=== PATIENT | female | born 1985 | race Caucasian/White ===

== ENCOUNTER 2019-11-21 14:29 | Emergency (ER) | payer OTHER, SELFPAY ==
--- NOTE | ~2019-11-21 | XR_ITS ---
XR knee LT min 4V DATE: 11/21/2019 15:05 INDICATION: Left knee pain for 2 weeks TECHNIQUE: 5 views including crosstable lateral COMPARISON: None FINDINGS: No fracture or dislocation or joint effusion. No periosteal reaction or bone destruction. N o radiopaque intra-articular loose body or chondrocalcinosis. Joint spaces are well preserved. IMPRESSION: Negative Reviewed, dictated and finalized at location A. IMPRESSION: Negative
--- NOTE | 2019-11-21 14:33 | ED.GENADULT ---
HPI - General Adult General Chief complaint: Skin/Abscess/Foreign Body Stated complaint: left knee and rash Time Seen by Provider: 11/21/19 14:34 Source: patient Mode of arrival: ambulatory Limitations: no limitations History of Present Illness HPI narrative: 34-year-old female patient presents to the [facility] with complaints of left knee pain and a rash. Patient states her left knee has been locking up on her for the past couple of weeks. Patient states it is painful when she is bending the knee. Patient denies any injury to the knee that she is aware of. Patient states she does take pain medicine for chronic back pain which has helped the knee pain but states that she has not had any specific injury to it and does not really know what is causing the pain. Patient still able to walk with a steady gait. Patient states she has also had a rash to the right side of the neck, the redness of the elbows on bilateral side as well as starting to have another rash to the left abdomen. Patient states that her does work outside and she has been laying on him recently and thinks that he might have come into contact with some poison sumac. Patient states she has had poison sumac before and gets it quite easily. Patient states she has been using [id number] topical hydrocortisone cream and taking antihistamines to help with the itching. Related Data Home Medications Medication Instructions Recorded Confirmed albuterol sulfate 2 puff INHALATION QID PRN 11/21/19 11/21/19 hydrocodone-acetaminophen 1 tablet PO Q8H PRN 11/21/19 11/21/19 Allergies Allergy/AdvReac Type Severity Reaction Status Date / Time AMOXICILLIN TRIHYDRATE AdvReac Intermediate Nausea and Uncoded 11/21/19 14:42 Vomiting POTASSIUM CLAVULANATE AdvReac Intermediate Nausea and Uncoded 11/21/19 14:42 Vomiting Review of Systems Review of Systems: Narrative: CONSTITUTIONAL: Denies fever, chills, or sweats. EYES: Denies visual changes, redness, or discharge. ENT: Denies rhinorrhea, congestion, sore throat, or otalgia. CARDIOVASCULAR: Denies chest pain, palpitations, or edema. RESPIRATORY: Denies cough or dyspnea. GASTROINTESTINAL: Denies abdominal pain, nausea, vomiting, or diarrhea. GENITOURINARY: Denies dysuria or hematuria. SKIN: Positive rash with itching. MUSCULOSKELETAL: Denies back pain, joint pain, or myalgia. Positive left knee pain NEUROLOGIC: Denies headache, numbness, or weakness. PSYCHIATRIC: Denies anxiety or depression. PMFSH Family History Family History Mother Family history of diabetes mellitus in first degree relative Father Family history of malignant neoplasm of urinary bladder Family history of heart disease in male family member before age 55 Social History Social History Smoking status: Never smoker Alcohol intake: never Comments At the time of my signature I agree with nursing past medical history, surgical, social, and family history. There is no relevant family history pertinent to the presenting complaint. Exam Narrative: Exam Narrative: GENERAL: Well-appearing, well-nourished, and in no acute distress. HEAD: Normocephalic, atraumatic. EYES: PERRLA and EOMI. ENT: Nares clear, no rhinorrhea or epistaxis. Mucous membranes moist. NECK: Supple. No lymphadenopathy CHEST: Clear to auscultation. No respiratory distress. HEART: Regular rate and rhythm. No murmur heard. Normal peripheral pulses. ABDOMEN: Soft, nontender, nondistended, normal active bowel sounds. EXTREMITIES: Patient is able to bear weight and ambulate but has increased pain to the left knee. No surface trauma, STS, or obvious effusion. No overlying erythema or warmth. The L knee is without obvious asymmetry or deformity when compared to the R knee. Patient is able to do deep knee bend with symmetry but has crepitus and pain when doing so, patien
[2019-11-21 14:34] VITALS: BP 119/77; PULSE 81; RESP 20; TEMP 36.9; O2SAT 100
== END 2019-11-21 15:34 | disposition home or self-care (01) ==
PROVIDERS: Emergency Provider Nurse Practitioner Family; PCP Internal Medicine
DX: L25.5 Unspecified contact dermatitis due to plants, except food (principal); M17.12 Unilateral primary osteoarthritis, left knee; J45.909 Unspecified asthma, uncomplicated
CPT/HCPCS: 73564; 99213; G0463

== ENCOUNTER 2021-01-26 09:18 | Observation (INO) | payer OTHER, SELFPAY ==
[2021-01-26] VITALS (8 sets, daily range): BP systolic 109–136; BP diastolic 64–89; PULSE 67–96; RESP 16–20; TEMP 36.3–37.1; O2SAT 98–100; BMI 24.0
--- NOTE | ~2021-01-26 | US_ITS ---
EXAMINATION: US right upper quadrant DATE: 01/26/2021 11:22 INDICATION: Epigastric pain, vomiting, chills TECHNIQUE: Multiple grayscale and Doppler ultrasound images of the abdomen were obtained. COMPARISON: None available FINDINGS: The head and body of the pancreas are normal. The pancreatic tail is obscured by bowel gas. The liver is normal with normal echogenicity and echotexture. No surface nodularity. Normal hepatope urvashi flow in the main portal vein. The gallbladder is normal with no abnormal wall thickening, pericho lecystic fluid or stones. The normal common bile duct measures 3 mm. Sonographic Duong sign is posit ynes. IMPRESSION: 1. Sonographic Duong sign without additional sonographic abnormality identified. Reviewed, dictated and finalized at location B. PERSON IMPRESSION: 1. Sonographic Duong sign without additional sonographic abnormality barbara vásquez
--- NOTE | 2021-01-26 10:32 | ED.NAVMDI ---
HPI - Nausea/Vomiting/Diarrhea General Chief complaint: Nausea/Vomiting/Diarrhea Stated complaint: VOMITTING Time Seen by Provider: 01/26/21 10:32 Source: patient Mode of arrival: ambulatory Limitations: no limitations History of Present Illness HPI Narrative: 35-year-old woman with a history of gallbladder disease comes in today complaining of epigastric pain, vomiting and dry heaves as well as some chills that started at 2:00 a.m. today. She states that she ate wings last night. She states that approximately 1 week ago she had gastroenteritis with and included nausea vomiting and diarrhea. Her symptoms completely resolved. she has had no blood in her vomitus, blood in her stools, diarrhea, dysuria, hematuria, fever , chest pressure or difficulty breathing. MD elicited complaint: nausea, vomiting and abdominal pain Onset (ago): hour(s) (8) Description of vomiting: food contents and watery Associated nausea: Yes Associated abdominal pain: Yes Location of pain: epigastric Radiation: does not radiate Pain consistency: constant and colicky Severity: moderate Quality: sharp Exacerbating factors: eating Relieving factors: vomiting ( but provides only temporary relief.) Context: marijuana use Associated symptoms: fever/chills and nausea/vomiting Related Data Home Medications Medication Instructions Recorded Confirmed albuterol sulfate 2 puff INHALATION QID PRN 11/21/19 01/26/21 hydrocodone-acetaminophen 1 tablet PO Q8H PRN 11/21/19 01/26/21 Allergies Allergy/AdvReac Type Severity Reaction Status Date / Time AMOXICILLIN TRIHYDRATE AdvReac Intermediate Nausea and Uncoded 01/26/21 10:21 Vomiting POTASSIUM CLAVULANATE AdvReac Intermediate Nausea and Uncoded 01/26/21 10:21 Vomiting Review of Systems Review of Systems: All systems reviewed & are unremarkable except as noted in HPI and below Constitutional: Constitutional: Reports chills and Denies fever(s) PMFSH Family History Family History Mother Family history of diabetes mellitus in first degree relative Father Family history of malignant neoplasm of urinary bladder Family history of heart disease in male family member before age 55 Social History Social History Smoking status: Never smoker Alcohol intake: never Substance use: current Substance use type: marijuana and opiates Spiritual care concerns: No Course Course Emergency Course: discussed findings with Dr. Oliva, surgeon at [facility], who recommended a HIDA scan to evaluate her gallbladder function however this is not available at our [facility] or [facility] [place] until Friday. Given the patient's pain and severe nausea, I will bring her in for observation, fluids and antibiotics and if she is improved she can go home tomorrow. If not we need to transfer for surgical consultation. Vital Signs Vital signs: Vital Signs Temperature 36.6 C 01/26/21 10:05 Pulse Rate 82 01/26/21 10:05 Respiratory Rate 20 01/26/21 10:05 Blood Pressure 134/87 01/26/21 10:05 Pulse Oximetry 100 01/26/21 10:05 Temperature 36.6 C 01/26/21 23:31 Pulse Rate 88 01/26/21 23:31 Respiratory Rate 18 01/26/21 23:31 Blood Pressure 109/73 01/26/21 23:31 Pulse Oximetry 98 01/26/21 23:31 MDM - Nausea/Vomiting/Diarrhea Lab Data Result diagrams: 01/26/21 11:13 01/26/21 11:13 Labs: Lab Results 01/26/21 01/26/21 01/26/21 Range/Units 10:32 11:13 11:13 WBC 18.7 H (4.8-10.8) K/mm3 RBC 4.67 (4.20-5.40) M/mm3 Hgb 13.8 (12.0-15.0) g/dL Hct 39.3 (35.0-49.0) % MCV 84.2 (78.0-102.0) fL MCH 29.6 (27.0-31.0) pg MCHC 35.1 (32.0-36.0) g/dL RDW 13.6 (11.6-14.4) % Plt Count 331 (150-420) K/mm3 MPV 9.9 (9.2-11.8) fl Immature Gran % (Auto) 0.6 H (0.0-0.0) % Neut % (Auto) 87.1 H (50.0-70.0)
[2021-01-26] MEDS: ONDANSETRON INJ 4 MG/2 ML VIAL IV PUSH ×3 (11:02→21:41)
[2021-01-26] MEDS: PANTOPRAZOLE SODIUM IV 40 MG VIAL IV PUSH (11:05)
[2021-01-26] MEDS: HYDROmorphone HCL INJ (*CRX) 2 MG/ML VIAL 1 MG IV PUSH ×4 (11:14→23:34)
[2021-01-26] MEDS: SODIUM CHLORIDE 0.9% IV 1,000 ML 999 ML IV CONT ×2 (11:15→13:20)
[2021-01-26 11:21] LABS: Basophils Absolute Auto 0.03 K/mm3 (0.00-0.10); Basophils Percent Auto 0.2 % (0.0-1.0); Hematocrit 39.3 % (35.0-49.0); Hemoglobin 13.8 g/dL (12.0-15.0); Immature Granulocyte Absolute 0.11 K/mm3 (0.00-0.00); Immature Granulocyte Percent A 0.6 % (0.0-0.0); Lymphocytes Absolute Auto 1.29 K/mm3 (1.10-4.50); Lymphocytes Percent Auto 6.9 % (18.0-42.0); Mean Corpuscular HGB Conc 35.1 g/dL (32.0-36.0); Mean Corpuscular Hemoglobin 29.6 pg (27.0-31.0); Mean Corpuscular Volume 84.2 fL (78.0-102.0); Mean Platelet Volume 9.9 fl (9.2-11.8); Monocytes Absolute Auto 0.98 K/mm3 (0.10-0.90); Monocytes Percent Auto 5.2 % (2.0-11.0); Neutrophils Absolute Auto 16.3 K/mm3 (1.7-7.2); Neutrophils Percent Auto 87.1 % (50.0-70.0); Platelet Count Result 331 K/mm3 (150-420); Red Blood Count 4.67 M/mm3 (4.20-5.40); Red Cell Distribution Width 13.6 % (11.6-14.4); White Blood Count 18.7 K/mm3 (4.8-10.8)
[2021-01-26 11:36] LABS: Alanine Aminotransferase 34 U/L (14-59); Albumin Level 3.8 g/dL (3.4-5.0); Alkaline Phosphatase 74 U/L (46-116); Anion Gap 16 mmol/L (8-16); Aspartate Amino Transferase 10 U/L (15-37); Bilirubin,Total 0.4 mg/dL (0.00-1.00); Blood Urea Nitrogen 20 mg/dL (7-18); Calcium 9.3 mg/dL (8.5-10.1); Carbon Dioxide 21 mmol/L (21-32); Chloride 102 mmol/L (98-108); Estimated CRCL calculation 86 ml/min; Estimated Glomerular Filt Rate > 60; Glucose 187 mg/dL (70-99); Lipase 59 U/L (73-393); Osmolality Calculated 295 mOsm/kg (285-295); Potassium 3.4 mmol/L (3.5-5.1); Sodium 139 mmol/L (136-145); Total Protein 7.7 g/dL (6.4-8.2)
[2021-01-26 11:39] LABS: Lactic Acid Reflex 2.2 mmol/L (0.4-2.0)
[2021-01-26 12:30] LABS: SARS-CoV-2 Ag Negative (Negative)
--- NOTE | 2021-01-26 12:50 | PC.NURSE ---
PT RESTING EYES CLOSED, LEFT UNDISTURBED. RESP EVEN AND UNLABORED.
[2021-01-26 13:21] LABS: Appearance Urine Clear (Clear); Bilirubin Urine Negative (Negative); Color Urine Yellow (Yellow); Glucose Urine UA Trace (Negative); Ketones Urine 1+ (Negative); Leukocyte Esterase Ur Negative LEU/UL (Negative); Nitrate Urine Negative (Negative); Protein Urine Trace (Negative); Urobilinogen Urine 0.2 mg/dL (0.2-1.0)
[2021-01-26 13:23] LABS: Add Urine Microscopic? YES; Blood Urine Trace-lysed (Negative)
[2021-01-26 13:30] LABS: Squamous Epithelial Cell Urine Moderate /hpf (Few); WBC Urine 0-3 /hpf (0-3)
[2021-01-26 13:31] LABS: Bacteria Urine 2+ /hpf
[2021-01-26 13:33] LABS: Mucus Urine Heavy /lpf
[2021-01-26 14:16] LABS: Reflex Lactic Acid Yes or No Add Lactic
[2021-01-26 15:15] LABS: Lactic Acid 1.1 mmol/L (0.4-2.0)
--- NOTE | 2021-01-26 18:00 | ECG_ITS ---
Measurements Intervals [place] Rate: 96 P: 67 ND: 200 QRS: 57 QRSD: 88 T: 44 QT: 339 QTc: 430 Interpretive Statements SINUS RHYTHM NONSPECIFIC T-WAVE ABNORMALITY- INFERIOR LEADS BASELINE ARTIFACT- I, II, III, AVR, AVL, AVF BORDERLINE ECG NO PREVIOUS ECG AVAILABLE FOR COMPARISON Electronically Signed On 01-30-2021 12:05:01 GEOGRAPHY DEPARTMENT CHAIR by Arsen Mcgowan D.O.
[2021-01-26] MEDS: DEXTROSE 5%/0.9% SOD CHL 1,000 ML 150 ML IV CONT (19:47)
--- NOTE | 2021-01-26 23:10 | PC.NURSE ---
Introduction to pt completed. Pt whiteboard updated. Pt is laying on her right side with the lights darkened. Call light within reach.
[2021-01-27] MEDS: HYDROmorphone HCL INJ (*CRX) 2 MG/ML VIAL 1 MG IV PUSH ×4 (03:01→20:33)
[2021-01-27] MEDS: DEXTROSE 5%/0.9% SOD CHL 1,000 ML 150 ML IV CONT ×3 (03:03→16:30)
[2021-01-27 05:22] LABS: Basophils Absolute Auto 0.02 K/mm3 (0.00-0.10); Basophils Percent Auto 0.2 % (0.0-1.0); Eosinophils Absolute Auto 0.03 K/mm3 (0.02-0.50); Eosinophils Percent Auto 0.2 % (1.0-6.0); Hemoglobin 11.1 g/dL (12.0-15.0); Immature Granulocyte Absolute 0.06 K/mm3 (0.00-0.00); Immature Granulocyte Percent A 0.5 % (0.0-0.0); Lymphocytes Absolute Auto 3.06 K/mm3 (1.10-4.50); Lymphocytes Percent Auto 23.6 % (18.0-42.0); Mean Corpuscular HGB Conc 32.6 g/dL (32.0-36.0); Mean Corpuscular Volume 88.8 fL (78.0-102.0); Mean Platelet Volume 10.1 fl (9.2-11.8); Monocytes Absolute Auto 1.27 K/mm3 (0.10-0.90); Monocytes Percent Auto 9.8 % (2.0-11.0); Neutrophils Absolute Auto 8.5 K/mm3 (1.7-7.2); Neutrophils Percent Auto 65.7 % (50.0-70.0); Platelet Count Result 243 K/mm3 (150-420); Red Blood Count 3.83 M/mm3 (4.20-5.40); Red Cell Distribution Width 13.9 % (11.6-14.4); White Blood Count 12.9 K/mm3 (4.8-10.8)
[2021-01-27 05:42] LABS: Anion Gap 6 mmol/L (8-16); Blood Urea Nitrogen 8 mg/dL (7-18); Carbon Dioxide 27 mmol/L (21-32); Chloride 106 mmol/L (98-108); Potassium 3.5 mmol/L (3.5-5.1); Sodium 139 mmol/L (136-145)
[2021-01-27 05:43] LABS: Alanine Aminotransferase 22 U/L (14-59); Albumin Level 2.9 g/dL (3.4-5.0); Alkaline Phosphatase 56 U/L (46-116); Aspartate Amino Transferase 10 U/L (15-37); Bilirubin,Total 0.3 mg/dL (0.00-1.00); Calcium 8.1 mg/dL (8.5-10.1); Estimated CRCL calculation 124 ml/min; Estimated Glomerular Filt Rate > 60; Glucose 122 mg/dL (70-99); Lipase 54 U/L (73-393); Osmolality Calculated 287 mOsm/kg (285-295)
[2021-01-27] MEDS: ONDANSETRON INJ 4 MG/2 ML VIAL IV PUSH ×3 (06:16→19:03)
[2021-01-27 08:00] VITALS: BP 112/78; PULSE 78; RESP 18; TEMP 36.4; O2SAT 98
--- NOTE | 2021-01-27 08:55 | PM.IMHP ---
H&P: HPI History of Present Illness Date/Time: 01/27/21 08:55 Ella Mohamud is a 35 year old female who is admitted under Observation for Vomiting after having eaten some spicy food yesterday. Pt states she has had ongoing issues with her gallbladder for the past 6 years. She knows she does not tolerate spicy foods however after getting off of work yesterday she consumed some spicy wings resulting in abdominal pain in the epigastric area with vomiting the lead to dry heaving. She denies diarrhea, fevers, chest pain, SOB, increased work of breathing. She states she is having difficulty drinking her clear liquids. Chief Complaint: Vomiting, Abdominal Pain Review of Systems Constitutional: Constitutional: Reports as per HPI, Denies body ache(s), Denies chills, Denies fever(s) and Denies headache(s) Cardiovascular: Cardiovascular: Reports no additional cardiovascular complaints, Denies chest pain, Denies chest pain at rest and Denies chest pain with activity Respiratory: Respiratory: Reports no additional respiratory complaints, Denies cough, Denies dyspnea and Denies dyspnea on exertion Gastrointestinal: Gastrointestinal: Reports as per HPI Genitourinary: Genitourinary: Reports no additional female genitourinary complaints Musculoskeletal: Musculoskeletal: Reports no additional musculoskeletal complaints Integumentary/Breasts: Skin/Breast: Reports system reviewed and no additional complaints, except as docu Neurologic: Reports system reviewed and no additional complaints, except as documented Psychiatric: Psychiatric: Reports no additional psychiatric complaints Endocrine: Endocrine: Reports no additional endocrine complaints PMF Past Medical History Medical History Shoulder pain, right Family History Family History Mother Family history of diabetes mellitus in first degree relative Father Family history of malignant neoplasm of urinary bladder Family history of heart disease in male family member before age 55 Social History Social History Smoking status: Never smoker Alcohol intake: never Substance use: current Substance use type: marijuana and opiates Spiritual care concerns: No Meds Home Medications and Allergies Home Medications Medication Instructions Recorded Confirmed Type albuterol sulfate 2 puff INHALATION QID PRN 11/21/19 01/26/21 History hydrocodone-acetaminophen 1 tablet PO Q8H PRN 11/21/19 01/26/21 History Allergies Allergy/AdvReac Type Severity Reaction Status Date / Time AMOXICILLIN TRIHYDRATE AdvReac Intermediate Nausea and Uncoded 01/26/21 10:21 Vomiting POTASSIUM CLAVULANATE AdvReac Intermediate Nausea and Uncoded 01/26/21 10:21 Vomiting Vital Signs Vital Signs - 24 hr 01/26/21 10:05 01/26/21 11:40 01/26/21 14:00 Temperature 97.9 F 97.8 F 97.4 F L Pulse Rate 82 75 67 Respiratory Rate 20 16 16 Blood Pressure 134/87 133/80 135/77 Pulse Oximetry 100 99 99 01/26/21 16:31 01/26/21 18:06 01/26/21 18:31 Temperature 98.2 F 97.9 F 98.7 F Pulse Rate 76 89 94 Respiratory Rate 16 20 18 Blood Pressure 131/64 136/74 132/89 Pulse Oximetry 99 100 99 01/26/21 20:00 01/26/21 23:31 Temperature 98.6 F 97.9 F Pulse Rate 96 88 Respiratory Rate 18 18 Blood Pressure 115/73 109/73 Pulse Oximetry 98 98 Exam Const: General: cooperative, healthy appearing, comfortable, no acute distress, well developed, alert, awake and Physically active Nutritional Appearance: average body habitus Resp: Effort & Inspection: normal respiratory effort and no cough Auscultation: clear to auscultation bilaterally Cardio: Jugular venous distension: no JVD Rate: regular rate Heart sounds: S1 normal heart sound present and S2 normal heart sound present GI: GI Palp: Yes Soft to palpation, Yes Tenderness to pal
[2021-01-27] MEDS: METOCLOPRAMIDE HCL INJ 10 MG/2 ML VIAL IV PUSH (09:14)
[2021-01-27] MEDS: ACETAMINOPHEN 500 MG TABLET PO (12:48)
[2021-01-27 16:00] VITALS: BP 115/68; PULSE 86; RESP 20; TEMP 36.7; O2SAT 97
[2021-01-27 23:41] VITALS: BP 110/60; PULSE 72; RESP 18; TEMP 36.6; O2SAT 99
--- NOTE | 2021-01-28 | PC.NURSE ---
Pt resting c lights dimmed upon assessment. Pt awakens easily and denies any pain, discomfort or nausea at this time. VSS, RR even and nonlabored, pt is up ad rosemarie per self and uses BSC per self s any assistance. Call light in place at pt side and encouraged to call if needed.
[2021-01-28] MEDS: DEXTROSE 5%/0.9% SOD CHL 1,000 ML 150 ML IV CONT ×2 (00:41→07:22)
--- NOTE | 2021-01-28 02:07 | PC.NURSE ---
Pt sleeping, no distress noted, RR even and nonlabored. Call hernadez in reach.
--- NOTE | 2021-01-28 04:58 | PC.NURSE ---
Pt sleeping, no changes, RR even and nonlabored, no distress noted, IVF infusing as per order, call hernadez in pt reach.
[2021-01-28 05:45] LABS: Hematocrit 36.9 % (35.0-49.0); Hemoglobin 12.3 g/dL (12.0-15.0); Mean Corpuscular HGB Conc 33.3 g/dL (32.0-36.0); Mean Corpuscular Hemoglobin 29.4 pg (27.0-31.0); Mean Corpuscular Volume 88.3 fL (78.0-102.0); Mean Platelet Volume 10.3 fl (9.2-11.8); Platelet Count Result 263 K/mm3 (150-420); Red Blood Count 4.18 M/mm3 (4.20-5.40); Red Cell Distribution Width 13.7 % (11.6-14.4); White Blood Count 7.4 K/mm3 (4.8-10.8)
[2021-01-28 05:59] LABS: Anion Gap 11 mmol/L (8-16); Blood Urea Nitrogen 4 mg/dL (7-18); Calcium 8.6 mg/dL (8.5-10.1); Carbon Dioxide 23 mmol/L (21-32); Chloride 105 mmol/L (98-108); Estimated CRCL calculation 144 ml/min; Estimated Glomerular Filt Rate > 60; Glucose 116 mg/dL (70-99); Osmolality Calculated 285 mOsm/kg (285-295); Potassium 3.4 mmol/L (3.5-5.1); Sodium 139 mmol/L (136-145)
[2021-01-28 08:00] VITALS: BP 119/72; PULSE 86; RESP 18; TEMP 36.8; O2SAT 98
--- NOTE | 2021-01-28 10:12 | PM.DS ---
DS: Admitting Diagnosis Discharge Date 01/28/2021 Admitting Diagnosis Biliary Colic, Vomiting DS: Discharge Diagnosis Discharge Diagnosis (1) Biliary colic: Code(s): K80.50 - Calculus of bile duct without cholangitis or cholecystitis without obstruction Status: Acute Assessment and Plan: Clear liquid diet, will advance as tolerated to a low fat diet, Zofran with a 1 time Reglan, Protonix, D5NS 150ml/h, Dilaudid for pain which she is taking about every 3-4 hours, Pt has not seen a GI specialist for about 5 years 01/28/2021 Pt has been able to tolerate full breakfast, no abdominal pain. (2) Vomiting: Qualifiers: Nausea presence: with nausea Vomiting Intractability: intractable Vomiting type: unspecified Qualified Code(s): R11.2 - Nausea with vomiting, unspecified Code(s): R11.10 - Vomiting, unspecified Status: Acute Assessment and Plan: Advance diet as tolerated, Reglan 1 time, Zofran. 01/28/2021 Resolved DS: Summary Hospital Course Hospital Course: Abdominal Pain Resolved, Vomiting Resolved Time Spent with Patient Time attestation: Total time spent providing and/or coordinating discharge services: < 30 Minutes Exam Const: General: cooperative, healthy appearing, comfortable, no acute distress, well developed, alert, awake and Physically active Nutritional Appearance: average body habitus Resp: Effort & Inspection: normal respiratory effort and no cough Auscultation: clear to auscultation bilaterally Cardio: Jugular venous distension: no JVD Rate: regular rate Heart sounds: S1 normal heart sound present and S2 normal heart sound present GI: GI Palp: Yes Soft to palpation, No Tenderness to palpation present (GI), No Guarding due to palpation present (GI) and Yes No hepatosplenomegaly present Auscultation: normal bowel sounds Skin: General skin exam: normal color and dry skin Neuro: General: oriented to person, oriented to place, oriented to time and CN's II-XI intact bilaterally (grossly intact) Extrem: General: full ROM, no pedal edema and no calf tenderness Psych: Appearance: grossly normal Mental Status: mental status grossly normal Speech and movement: Normal speech and movement present Affect: normal affect Attitude: cooperative Thought process: Normal thought process present DS: Data Data Completed and Pending Labs on day of discharge: Labs from last 24 hours 01/28/21 01/28/21 05:24 05:24 WBC 7.4 RBC 4.18 L Hgb 12.3 Hct 36.9 MCV 88.3 MCH 29.4 MCHC 33.3 RDW 13.7 Plt Count 263 MPV 10.3 Sodium 139 Potassium 3.4 L Chloride 105 Carbon Dioxide 23 Anion Gap 11 BUN 4 L Creatinine 0.61 Estim Creat Clear Calc 144 Estimated GFR > 60 Glucose 116 H Calculated Osmolality 285 Calcium 8.6 Preliminary micro results at discharge 01/26/21 14:44 Blood Culture - Preliminary Blood 01/26/21 14:44 Blood Culture - Preliminary Blood Discharge Plan Discharge Attending physician on discharge: David Block Discharging Clinician: Rylan Dasilva Anticipated Discharge Date/Time: 01/28/21 11:00 Patient Disposition: Home, Self-Care Activity: as tolerated Diet: regular Discharge Instructions: Please follow up with your PCP I have a HIDA scan ordered for you take your antibiotics as ordered. Patient Instructions: Antibiotic Form Stand Alone Forms: General Discharge Information Follow-up/Referrals: UNKNOWN,DOCTOR [Primary Care Provider] - 1 week Discharge Medications: New ciprofloxacin HCl 500 mg tablet 500 mg PO Q12H Qty: 10 RF: 0 Continued hydrocodone-acetaminophen 5-325 mg Tablet 1 tablet PO Q8H PRN (Reason: Pain) RF: 0 albuterol sulfate 90 mcg/actuation Hfa Aerosol Inhaler 2 puff INHALATION QID PRN (Reason: Wheezing) RF: 0 Date of admission: 01/26/21 17:30 Primary Care Provider: UNKNOWN,DOCTOR Admitting Provider: David Block
--- NOTE | 2021-01-28 11:00 | PC.NURSE ---
Discharge instructions reviewed with patient, patient verbalizes understanding. Patient ambulated from floor, escorted to main door.
--- NOTE | 2021-01-29 14:07 | PC.NURSE ---
Pt states she received and understood her discharge instructions. Pt also states they were excellent .
== END 2021-01-28 10:40 | disposition home or self-care (01) ==
LOC: CHSED 17:45 → CHS2ND 17:45
PROVIDERS: Nurse Practitioner Family; Admitting Provider Emergency Medicine; Emergency Provider Emergency Medicine; Visit Provider Emergency Medicine
DX: K80.20 Calculus of gallbladder without cholecystitis without obstruction (principal); Z20.822 Contact with and (suspected) exposure to COVID-19
CPT/HCPCS: 36415; 76705; 80048; 80053; 81001; 83605; 83690; 85025; 85027; 87040; 87086; 87088; 87426; 93005; 96361; 96365; 96366; 96374; 96375; 96376; 99285; C9113; C9803; G0378; G0379; J0743; J1170; J2405; J2765; J7030; J7042

== ENCOUNTER 2021-01-31 07:53 | Outpatient (CLI) | payer OTHER, SELFPAY ==
--- NOTE | ~2021-01-31 | NM_ITS ---
EXAMINATION: NM hepatobiliary wo pharm DATE: 01/31/2021 10:33 INDICATION: Biliary colic. COMPARISON: Ultrasound 01/26/2021 TECHNIQUE: 5 mCi Tc-99m mebrofenin (Choletec) was administered intravenously. Scintigraphic images o f the abdomen were obtained for one hour. Then, the patient drank 8 oz Ensure, and imaging was contin ued for 60 minutes. FINDINGS: There is normal clearance of radiotracer from the blood pool. There is homogeneous tracer u ptake by the liver. Activity progresses to the bowel and gallbladder. Gallbladder ejection fraction (GBEF) was 3%. Note that with this technique, normal GBEF >= 33%. IMPRESSION: 1. Low gallbladder ejection fraction, consistent with gallbladder dysfunction and/or chronic cholecy stitis. Reviewed, dictated and finalized at location A. ER CONTROL OPERATOR IMPRESSION: 1. Low gallbladder ejection fraction, consistent with gallbladder dysfunction and/or chronic cholecystitis.
== END 2021-01-31 07:54 | disposition home or self-care (01) ==
LOC: CHSIMG 07:55
PROVIDERS: PCP Internal Medicine; Visit Provider Nurse Practitioner Family
DX: K80.50 Calculus of bile duct without cholangitis or cholecystitis without obstruction (principal)
CPT/HCPCS: 78226; A9537

== ENCOUNTER 2021-02-01 04:17 | Emergency (ER) | payer OTHER, SELFPAY ==
--- NOTE | ~2021-02-01 | CT_ITS ---
EXAMINATION: CT abdomen pelvis wo con DATE: 02/01/2021 07:07 INDICATION: Mid upper abdominal pain. TECHNIQUE: Computed tomography (CT) of the abdomen and pelvis was performed without intravenous contr ast. Automated exposure control and iterative reconstruction technique were employed. Exam dose: 694 .64 mGy-cm total exam DLP. COMPARISON: 01/31/2021 radionuclide hepatobiliary scan; low gallbladder ejection fraction was reporte d, consistent with gallbladder dysfunction and/or chronic cholecystitis 01/26/2021 right upper quadrant abdominal ultrasound; positive sonographic Duong sign was reported, without gallbladder wall thickening or gallstones identified FINDINGS: The lung bases are clear of infiltrate or consolidation. Normal heart size. No pericardial or pleural effusion. The liver, gallbladder, bile ducts, spleen, pancreas, pancreatic duct, and adrenal glands and left ki dney are unremarkable. No gallbladder wall thickening is evident. No pericholecystic fluid or fat str anding. There is right renal scarring which is most likely due to chronic pyelonephritis; less likely considerations include infarcts or posttraumatic change. No hydronephrosis. The urinary bladder is u nremarkable. Retroverted uterus. Normal caliber of the abdominal aorta. No intraperitoneal or retroperitoneal or pelvic mass lesion or adenopathy or ascites. Small sliding hiatal hernia. There is a prominent amount of fecal material in the colon. No bowel obs truction, bowel wall thickening, pneumatosis or intraperitoneal free air. Small fat-containing umbilical hernia. There is moderately severe degenerative disc disease at L5-S1. IMPRESSION: Small sliding hiatal hernia Chronic pyelonephritis of the right kidney No gallbladder wall thickening or pericholecystic fluid or fat stranding is detected. Reviewed, dictated and finalized at [facility] Reviewed, dictated and finalized at [facility] [employer] IMPRESSION: Small sliding hiatal hernia Chronic pyelonephritis of the right kidney No gallbladder wall thickening or pericholecystic fluid or fat stranding is det ected.
[2021-02-01] MEDS: ONDANSETRON INJ 4 MG/2 ML VIAL IV PUSH ×2 (04:30→07:57)
[2021-02-01] MEDS: SODIUM CHLORIDE 0.9% IV 1,000 ML 999 ML IV CONT (04:30)
[2021-02-01 04:36] VITALS: BP 110/84; PULSE 88; RESP 20; TEMP 36.8; O2SAT 98
--- NOTE | 2021-02-01 04:59 | ED.ABDPAIN ---
HPI - Abdominal Pain General Source: patient and RN notes reviewed Mode of arrival: ambulatory Limitations: no limitations History of Present Illness MD elicited complaint: abdominal pain Pertinent past history: other (recent Observation admission for cholecystitis. ) Onset (ago): hour(s) Pain Consistency: constant and colicky Location: epigastric Severity: severe Pain scale (0-10): 9 Quality: cramping, aching and burning Radiation: back Migration to: no migration Exacerbating factors: nothing Relieving factors: nothing Associated symptoms: nausea and vomiting Related Data Patient : No Home Medications Medication Instructions Recorded Confirmed albuterol sulfate 2 puff INHALATION QID PRN 11/21/19 02/04/21 meloxicam 15 mg PO DAILY 02/01/21 02/04/21 Allergies Allergy/AdvReac Type Severity Reaction Status Date / Time amoxicillin [From Augmentin] AdvReac Vomiting Verified 02/01/21 14:16 clavulanic acid AdvReac Vomiting Verified 02/01/21 14:16 [From Augmentin] Review of Systems Review of Systems: All systems reviewed & are unremarkable except as noted in HPI and below Gastrointestinal: Gastrointestinal: Reports abdominal pain, Reports heartburn, Reports nausea and Reports vomiting PMFSH Past Medical History Medical History Biliary colic Cholecystitis Shoulder pain, right Surgical History Surgical History Hx laparoscopic cholecystectomy Family History Family History Mother Family history of diabetes mellitus in first degree relative Father Family history of malignant neoplasm of urinary bladder Family history of heart disease in male family member before age 55 Social History Social History Smoking status: Never smoker Second hand tobacco smoke exposure: No Alcohol intake: never Substance use: current Substance use type: marijuana Last use: 01/31/21 Gender identity (if verbalized by the patient): Female Sexual Orientation (if Verbalized by the Patient): Straight or Heterosexual Spiritual care concerns: No Exam Const: General: no acute distress and alert Nutritional Appearance: obese Orientation/consciousness: patient oriented x3 Limitations: no limitations HENMT: Head: normal to inspection Ears: external ears normal and TM's normal bilaterally General nose exam: Normal external nose present and Normal nares present Mouth: Yes lip normal and Yes moist mucous membranes Teeth and gingiva: dentition normal Eyes: Conjunctivae: conjunctivae normal Pupils: Equal, round and reactive pupils present EOM: EOMs intact bilaterally Neck: Neck: normal visual inspection and no lymphadenopathy Chest: Chest palpation & inspection: normal inspection of the chest Resp: Effort & Inspection: normal respiratory effort Auscultation: clear to auscultation bilaterally Cardio: Rate: regular rate Rhythm: regular rhythm GI: GI Palp: Yes Soft to palpation, Yes Tenderness to palpation present (GI) (epigastrium) and Yes Rebound tenderness present Auscultation: normal bowel sounds : General: Yes bladder normal to palpation and Yes no CVA tenderness Back/Spine/Pelvis: Back: no CVA tenderness Skin: General skin exam: normal color Rashes: no rashes Neuro: General: patient oriented x3, moves all extremities, no meningeal signs, no focal motor deficits and CN's II-XI intact bilaterally Extrem: General: normal to inspection and no pedal edema Psych: Appearance: grossly normal and well kempt Mental Status: mental status grossly normal Affect: normal affect and Anxious affect present Attitude: cooperative Thought content: Yes Normal thought content present Course Course Emergency Course: Pt was stable in the ED with less pain and resolved vomiting. Dinah
[2021-02-01] MEDS: MORPHINE SULFATE (*CRX) 2 MG/ML INJ IV PUSH (05:18)
[2021-02-01 05:20] LABS: Basophils Absolute Auto 0.03 K/mm3 (0.00-0.10); Basophils Percent Auto 0.2 % (0.0-1.0); Eosinophils Absolute Auto 0.06 K/mm3 (0.02-0.50); Eosinophils Percent Auto 0.5 % (1.0-6.0); Hematocrit 38.9 % (35.0-49.0); Hemoglobin 12.7 g/dL (12.0-15.0); Immature Granulocyte Absolute 0.04 K/mm3 (0.00-0.00); Immature Granulocyte Percent A 0.3 % (0.0-0.0); Immature Platelet Fraction Pct 3.4 % (1.0-7.0); Lymphocytes Absolute Auto 2.07 K/mm3 (1.10-4.50); Lymphocytes Percent Auto 16.4 % (18.0-42.0); Mean Corpuscular HGB Conc 32.6 g/dL (32.0-36.0); Mean Corpuscular Hemoglobin 28.8 pg (27.0-31.0); Mean Corpuscular Volume 88.2 fL (78.0-102.0); Mean Platelet Volume 10.7 fl (9.2-11.8); Monocytes Absolute Auto 0.96 K/mm3 (0.10-0.90); Monocytes Percent Auto 7.6 % (2.0-11.0); Neutrophils Absolute Auto 9.5 K/mm3 (1.7-7.2); Platelet Count Result 259 K/mm3 (150-420); Red Blood Count 4.41 M/mm3 (4.20-5.40); Red Cell Distribution Width 13.5 % (11.6-14.4); White Blood Count 12.7 K/mm3 (4.8-10.8)
[2021-02-01 05:36] LABS: Alanine Aminotransferase 46 U/L (14-59); Albumin Level 3.5 g/dL (3.4-5.0); Alkaline Phosphatase 77 U/L (46-116); Anion Gap 11 mmol/L (8-16); Aspartate Amino Transferase 11 U/L (15-37); Bilirubin,Total 0.2 mg/dL (0.00-1.00); Blood Urea Nitrogen 18 mg/dL (7-18); Calcium 8.5 mg/dL (8.5-10.1); Carbon Dioxide 24 mmol/L (21-32); Chloride 105 mmol/L (98-108); Estimated CRCL calculation 93 ml/min; Estimated Glomerular Filt Rate > 60; Ethanol 3 mg/dL (0-6); Glucose 133 mg/dL (70-99); Lipase 475 U/L (73-393); Osmolality Calculated 293 mOsm/kg (285-295); Sodium 140 mmol/L (136-145); Total Protein 7.2 g/dL (6.4-8.2)
[2021-02-01] MEDS: PANTOPRAZOLE SODIUM IV 40 MG VIAL IV PUSH (05:37)
[2021-02-01] MEDS: KETOROLAC (*BKC) 60 MG/2 ML VIAL IM (05:38)
[2021-02-01] MEDS: MAG HYDROX/ALUMINUM HYD/SIMETH 30 ML, PHENobarb/HYOSCY/ATROPINE/SCOP 32.4 MG, LIDOCAINE... PO (05:38)
[2021-02-01 05:41] LABS: Lactic Acid Reflex 1.5 mmol/L (0.4-2.0)
[2021-02-01 05:57] LABS: Add Urine Microscopic? NO; Appearance Urine Clear (Clear); Bilirubin Urine Negative (Negative); Blood Urine Negative (Negative); Color Urine Yellow (Yellow); Glucose Urine UA Negative (Negative); Ketones Urine Negative (Negative); Leukocyte Esterase Ur Negative (Negative); Nitrate Urine Negative (Negative); Protein Urine Negative (Negative); Specific Grav Ur 1.025 (1.010-1.020); Urobilinogen Urine 0.2 mg/dL (0.2-1.0)
[2021-02-01 06:05] LABS: Amphetamine Screen Urine Negative (Negative); Barbiturate Screen Urine Negative (Negative); Benzodiazepines Screen Urine Negative (Negative); Cannabinoid Screen Urine Positive (Negative); Cocaine Screen Urine Negative (Negative); Methadone Screen Urine Negative (Negative); Opiate Screen Urine Positive (Negative); Phencyclidine Screen Urine Negative (Negative)
[2021-02-01 06:25] LABS: Pregnancy On Board Control Positive; Urine Pregnancy Test Negative
--- NOTE | 2021-02-01 07:24 | PC.NURSE ---
pt continues with nausea and vomiting. report to natalia hagen
[2021-02-01] MEDS: HYDROmorphone HCL INJ (*CRX) 2 MG/ML VIAL 0.5 MG IV PUSH ×2 (07:55→08:33)
[2021-02-01 08:11] VITALS: BP 145/63; PULSE 88; RESP 20; TEMP 36.6; O2SAT 98
[2021-02-01 09:23] VITALS: BP 129/71; PULSE 69; RESP 16; TEMP 36.7; O2SAT 98
== END 2021-02-01 09:45 | disposition short-term general hospital (02) ==
PROVIDERS: Emergency Medicine; Emergency Provider Emergency Medicine
DX: K81.9 Cholecystitis, unspecified (principal); R11.10 Vomiting, unspecified
CPT/HCPCS: 36415; 74176; 80053; 80307; 81003; 81025; 83605; 83690; 85025; 85055; 96361; 96365; 96372; 96375; 96376; 99285; A9270; C9113; J1170; J1885; J2270; J2405; J2543; J7030

== ENCOUNTER 2021-02-01 12:11 | Observation (INO) | payer OTHER, SELFPAY ==
[2021-02-01] VITALS (10 sets, daily range): BP systolic 120–161; BP diastolic 69–97; PULSE 94–125; RESP 12–22; TEMP 36.2–36.8; O2SAT 96–100; BMI 23.5
--- NOTE | 2021-02-01 11:29 | PC.NURSE ---
This patient, Ella Mohamud, was admitted to 3 [facility] Surg Room 315-02 on 02/01/21 @ 1020. Patient/family oriented to hospital policies and general routines including ID bracelet, bed and alarms, visiting hours, pain management, procedures, bathroom and other care routines, personal items, smoking policy, room service/diet, and visiting hours. Information on how to activate the Rapid Response Team has been discussed. Patient/Family are encouraged to report perceived risks to care and to ask questions if they do not understand what they are told or what they should do.
[2021-02-01 12:13] LABS: EDCOVIDSCREEN Negative (Negative)
--- NOTE | 2021-02-01 12:17 | PM.IMHP ---
H&P: HPI History of Present Illness Date/Time: 02/01/21 12:17 The patient is a 35-year-old female that presented to the emergency department complaining of intractable right upper quadrant abdominal pain. The patient reports the pain has been unrelenting over the last 3 weeks. The patient reports the pain is in her right upper quadrant and radiates to her epigastrium, chest, and back. The patient reports this is associated with bloating, nausea and emesis, and diarrhea. The patient reports she has had a very poor during this prolonged episode. The patient has had multiple visits to the ER for this particular issue and was recently discharged home with p.o. antibiotics and analgesia. The patient reports she has had intermittent symptoms for about 10 years. The patient reports that the pain is worsened after eating, particularly more fatty foods. Chief Complaint: Acute cholecystitis Review of Systems Constitutional: Constitutional: Reports anorexia, Denies chills, Reports fatigue, Denies fever(s), Denies increased appetite, Reports lethargy, Reports malaise, Reports poor appetite, Reports weakness, Denies weight gain and Denies weight loss Eyes: Eyes: Reports no additional eye complaints ENT: Reports system reviewed and no additional complaints, except as documented Cardiovascular: Cardiovascular: Reports no additional cardiovascular complaints Respiratory: Respiratory: Reports no additional respiratory complaints Gastrointestinal: Gastrointestinal: Reports as per HPI, Reports abdominal pain, Reports bloating, Reports GI cramping, Reports early satiety, Reports dyspepsia, Reports diarrhea, Reports nausea and Reports vomiting Genitourinary: Genitourinary: Reports no additional female genitourinary complaints Musculoskeletal: Musculoskeletal: Reports no additional musculoskeletal complaints Integumentary/Breasts: Skin/Breast: Reports system reviewed and no additional complaints, except as docu Neurologic: Reports system reviewed and no additional complaints, except as documented Psychiatric: Psychiatric: Reports no additional psychiatric complaints Endocrine: Endocrine: Reports no additional endocrine complaints Hematologic/Lymphatic: Hematologic/Lymphatic: Reports no additional hematologic/lymphatic complaints Allergic/Immunologic: Allergic/Immunologic: Reports no additional allergic/immunologic complaints [facility] Past Medical History Medical History Biliary colic Cholecystitis Shoulder pain, right Family History Family History Mother Family history of diabetes mellitus in first degree relative Father Family history of malignant neoplasm of urinary bladder Family history of heart disease in male family member before age 55 Social History Social History Smoking status: Never smoker Alcohol intake: never Substance use: current Substance use type: marijuana Last use: 01/31/21 Spiritual care concerns: No Comments pt denies any abdominal surgeries Meds Home Medications and Allergies Home Medications Medication Instructions Recorded Confirmed Type albuterol sulfate 2 puff INHALATION QID PRN 11/21/19 02/01/21 History hydrocodone-acetaminophen 1 tablet PO Q8H PRN 11/21/19 02/01/21 History ciprofloxacin HCl 500 mg PO Q12H #10 tablet 01/28/21 02/01/21 Rx Allergies Allergy/AdvReac Type Severity Reaction Status Date / Time amoxicillin [From Augmentin] AdvReac Vomiting Verified 02/01/21 09:20 clavulanic acid AdvReac Vomiting Verified 02/01/21 09:20 [From Augmentin] Exam Const: General: cooperative, well developed, alert, awake, Physically active, acute distress mild, tired appearing and uncomfortable Nutritional Appearance: obese Orientation/consciousness: patient oriented x3 Limitations: no limitations HENMT: Head: normal t
[2021-02-01] MEDS: MORPHINE SULFATE (*CRX) 2 MG/ML INJ IV PUSH ×3 (12:25→22:42)
--- NOTE | 2021-02-01 12:30 | WPDHPUPDATE1 ---
History and Physical Update Update Date/Time: 02/01/21 12:30 History and Physical has been reviewed, including an updated exam of the patient. There are NO changes in the patient's condition. Risks, benefits, and alternatives have been discussed and questions answered. Patient agrees to proceed with procedure.
--- NOTE | 2021-02-01 13:38 | P.PNAN_ITS ---
Anes - Initial Pre Proc Eval Procedure: Operation Date: 02/01/21 15:15 Proposed Procedures p Laparoscopic Cholecystectomy - Trixie Schmitt MD Date/Time: 02/01/21 13:38 Surgeon: Trixie Schmitt MD Pre Op Diagnosis: acute cholecystitis Patient Data Age: 35 Gender: F Height: Weight: Allergies Allergy/AdvReac Type Severity Reaction Status Date / Time amoxicillin [From Augmentin] AdvReac Vomiting Verified 02/01/21 14:16 clavulanic acid AdvReac Vomiting Verified 02/01/21 14:16 [From Augmentin] Home Medications Medication Instructions Recorded Confirmed Type albuterol sulfate 2 puff INHALATION QID PRN 11/21/19 02/01/21 History hydrocodone-acetaminophen 1 tablet PO Q8H PRN 11/21/19 02/01/21 History ciprofloxacin HCl 500 mg PO Q12H #10 tablet 01/28/21 02/01/21 Rx Laboratory Tests 02/01/21 11:43 SARS-CoV-2 IgG/IgM Ag?Rapid Negative (Negative) Patient hx anesthesia problems: none Family hx anesthesia problems: none Results Review: All pre-operative results and documents have been reviewed as part of the pre-operative evaluation. [facility] Past Medical History Medical History Biliary colic Cholecystitis Shoulder pain, right Family History Family History Mother Family history of diabetes mellitus in first degree relative Father Family history of malignant neoplasm of urinary bladder Family history of heart disease in male family member before age 55 Social History Social History Smoking status: Never smoker Alcohol intake: never Substance use: never Substance use type: opiates Last use: 01/31/21 Spiritual care concerns: No Anes - Eval Final PreProcedure Day of Procedure 02/01/21 13:38 Patient weight: overweight Heart: regular rate and rhythm Lungs: clear to auscultation and normal air movement Airway: Mallampati scale class II Neurological: alert and oriented Last oral intake: >/= 8 hours ASA classification: II Emergent: no Anesthetic plan: proceed Anesthesia type and monitoring: general ETT Results Review: All pre-operative results and documents have been reviewed as part of the pre-operative evaluation. Informed Consent: The patient's anesthetic plan and its attendant risks and benefits were discussed with the patient/family/POA. Questions were solicited and answers provided to the satisfaction of the patient/family/POA.
[2021-02-01] MEDS: LACTATED RINGERS 1,000 ML 30 ML IV CONT ×2 (14:24→16:07)
[2021-02-01] MEDS: BUPIVACAINE HCL 0.5% PF 30 ML VIAL INFILTRATE (14:56)
--- NOTE | 2021-02-01 15:44 | P.OP_ITS ---
Procedure Note - Detailed Date of Procedure 02/01/21 Pre-op Diagnosis acute cholecystitis Post-op Diagnosis same Procedure Performed laparoscopic cholecystectomy Surgeon Trixie Schmitt MD Anesthesia general Indications 35-year-old female presenting with 3 week history of severe right upper quadrant abdominal pain. Workup including imaging, significant for cholecystitis. Findings Mild chronic cholecystitis Description of Procedure The patient was taken to the operating room placed in the supine position. After adequate induction of general anesthesia, the patient was prepped and draped in normal sterile fashion. A time-out was then performed to verify the patient's identity as well as the procedure being performed. I then made a 5 mm incision in the infraumbilical region. Through this, a Veress needle was placed into the peritoneal cavity and CO2 gas was then insufflated. After adequate pneumoperitoneum was achieved, the Veress needle was removed and a 5 mm optiview trocar was placed through this incision under direct visualization. I then placed the laparoscope through this trocar site and under direct visualization placed a further 12 mm subxiphoid port as well as 2 additional 5 mm ports in the right upper abdomen. The gallbladder was then identified and was noted to be mildly inflamed and distended. I was able to place a grasper at the dome of the gallbladder and this was retracted anterior and cephalad up over the liver. A 2nd retractor was then placed at the infundibulum and retracted laterally, this allowed visualization of the triangle of Calot. I then was able to v isualize the cystic duct in its entirety from its proximal insertion into the gallbladder, to its distal junction with the common hepatic/common bile duct junction. At this point, I carefully skeletonized the proximal cystic duct with the [place] dissector. I then clipped and transected the proximal cystic duct. Next I visualized the cystic artery. Again the artery was skeletonized, clipped, and transected. I then used the Bovie cautery to take down the peritoneal attachments of the gallbladder off the liver bed. This was somewhat difficult given the amount of inflammation in the posterior space. Once the gallbladder specimen was completely detached, an endo-pouch was placed through the 12 mm port site. I then placed the gallbladder specimen into the Endo pouch and removed the endo-pouch from the 12 mm port site. The specimen will now be sent to pathology for further review. I then copiously irrigated the right upper quadrant. Hemostasis was noted in the liver bed, the clips were noted to be in good position on both the cystic duct stump and the cystic artery stump. No other pathology was noted in the right upper quadrant. I then moved the laparoscope to the subxiphoid port. No iatrogenic injury or other pathology was noted in the lower abdomen. I then closed the 12 mm trocar site under direct visualization using the Juaquin cone and 0 Vicryl suture. At this point, the abdomen was desufflated and all ports removed. All port sites were then closed with 4.O Monocryl subcuticular sutures. Dermabond was placed on each incision. The patient tolerated the procedure well, was extubated in the operating room postoperative and will be transferred to the recovery room in stable condition Estimated Blood Loss 5 Drains No Packing No Pathology yes Complications No immediate complications Condition stable Disposition PACU
[2021-02-01] MEDS: fentaNYL CITRATE INJ (*CRX) 100 MCG/2 ML VIAL 25 MCG IV PUSH ×8 (15:45→16:49)
[2021-02-01] MEDS: ONDANSETRON INJ 4 MG/2 ML VIAL IV PUSH (15:59)
--- NOTE | 2021-02-01 16:34 | SUR.PHASEI ---
[id number] sbar faxed floor notified
[2021-02-01] MEDS: HYDROmorphone HCL INJ (*CRX) 1 MG/ML SYR 0.5 MG IV PUSH ×4 (16:43→17:03)
--- NOTE | 2021-02-01 17:27 | PC.NURSE ---
Return from OR per bed @ 1475.
[2021-02-02] MEDS: MORPHINE SULFATE (*CRX) 2 MG/ML INJ IV PUSH ×2 (03:15→05:56)
[2021-02-02] MEDS: ONDANSETRON INJ 4 MG/2 ML VIAL IV PUSH ×4 (03:16→20:42)
[2021-02-02 06:00] VITALS: BP 128/79; PULSE 88; RESP 18; TEMP 36.8; O2SAT 97
[2021-02-02] MEDS: HYDROcodone/acetaminophen (*CRX) 5-325 MG TABLET 1 TAB PO ×2 (08:13→13:13)
[2021-02-02] MEDS: MELOXICAM 7.5 MG TABLET 15 MG PO (08:15)
--- NOTE | 2021-02-02 09:04 | WPDANESPN ---
Anes - Prog Note Post-Op Date/Time: 02/02/21 09:04 Cardiovascular status: normal Respiratory status: normal Airway patency: baseline Mental status: baseline Post-Op hydration status: normal Vital Signs: Last Vital Signs Temp 36.8 C 02/02/21 06:00 Pulse 88 02/02/21 06:00 Resp 18 02/02/21 06:00 BP 128/79 02/02/21 06:00 Pulse Ox 97 02/02/21 06:00 Pain Score (VAS): 0 I/O: Intake & Output 02/01/21 02/02/21 02/02/21 23:59 07:59 15:59 Intake Total 1000 350 Balance 1000 350 02/01/21 11:43 SARS-CoV-2 IgG/IgM Ag?Rapid Negative Post-procedural complaints: none Patient Feedback: Patient satisfied with anesthetic care.
--- NOTE | 2021-02-02 11:34 | PM.DS ---
DS: Admitting Diagnosis Discharge Date 02/02/2021 Admitting Diagnosis Chronic cholecystitis DS: Discharge Diagnosis Discharge Diagnosis (1) Cholecystitis: Code(s): K81.9 - Cholecystitis, unspecified Status: Acute Assessment and Plan: status post laparoscopic cholecystectomy, doing well, continue routine postoperative care, home with p.o. analgesia, follow-up 2 weeks DS: Summary Hospital Course Reason for hospitalization: chronic cholecystitis Hospital Course: The patient is a 35-year-old female presenting with chronic cholecystitis. The patient was seen at an outside emergency department yesterday and transferred here for subsequent care. Workup, including imaging, was significant for chronic cholecystitis. Given her symptomatology, the decision was made to proceed with urgent cholecystectomy. The patient underwent laparoscopic cholecystectomy on 02/01, please see full operative report for details of that procedure. Postoperatively, the patient did well and was transferred to the floor. On postoperative day 1. , the patient reports she is doing well. She reports incisions are sore but her pain is well controlled with p.o. analgesia. The patient has been able to tolerate a regular diet without issue. The patient is up and ambulating without issue. The patient will now be discharged home with p.o. analgesia and follow-up in 2 weeks. Status at Discharge Functional status at discharge: independent ambulation Overall status at discharge: patient is progressing back to baseline Time Spent with Patient Time attestation: Total time spent providing and/or coordinating discharge services: Exam Const: General: cooperative, comfortable and no acute distress Nutritional Appearance: obese Orientation/consciousness: patient oriented x3 Resp: Effort & Inspection: normal respiratory effort Auscultation: clear to auscultation bilaterally Cardio: Rate: regular rate Rhythm: regular rhythm GI: Inspection: normal to inspection, non-distended and incision GI Palp: Yes Soft to palpation, Yes Tenderness to palpation present (GI), No Guarding due to palpation present (GI) and No Rigid due to palpation DS: Data Data Completed and Pending Pending studies at discharge: Pending at discharge 02/01/21 14:50 Surgical [PTH] Routine Labs on day of discharge: Labs from last 24 hours 02/01/21 11:43 SARS-CoV-2 IgG/IgM Ag?Rapid Negative Discharge Plan Discharge Attending physician on discharge: Trixie Schmitt Discharging Clinician: Trixie Schmitt Anticipated Discharge Date/Time: 02/02/21 11:34 Patient Disposition: Home, Self-Care Activity: other - see discharge instructions Diet: other - see discharge instructions Wound Care Instructions: other - see discharge instructions Discharge Instructions: DISCHARGE INSTRUCTION SHEET FOR HERNIA, GALLBLADDER AND APPENDIX SURGERIES DR. SCHMITT PATIENT TO TAKE HOME 1. May shower in 24 hours, no soaking in bath x 2weeks. 2. Call office for: Wound increasingly painful or bleeding Vomiting Fever of greater than 101 degrees 3. If no bowel movement for three days, take 1 oz. (30 ml) Milk of Magnesia or MiraLax 17g 1 to 2 times daily. 4. No heavy lifting > 10-15 pounds x 6 weeks for hernia repairs and 2 weeks for laparoscopic cholecystectomy or appendectomy. 5. No driving for 3 days or while taking narcotic pain medications. 6. Ice to surgical site for 48 hours (30 min on, then 30 min off). 7. Up walking 10-30 minutes three times per day. 8. Resume previous home medications. 9. Follow-up 10-14 days in office for wound check or as previously scheduled. ([phone]) 10. Oral pain medications prescription to be sent to pharmacy. Take Tylenol 500mg every 6 hours and Ibuprofen 600mg every 6 hours for the first 2 days, then as needed. 11. NUTRITION: Start out by drinking fl
[2021-02-02 15:10] LABS: Hematocrit 37.1 % (37.0-47.0); Hemoglobin 12.5 g/dL (12.0-15.0); Mean Corpuscular HGB Conc 33.7 g/dl (32-36); Mean Corpuscular Hemoglobin 29.3 pg (26-34); Mean Corpuscular Volume 87.1 fl (80-100); Platelet Count Result 299 k/mm3 (150-375); Red Blood Count 4.26 M/mm3 (4.2-5.4); Red Cell Distribution Width 13.9 % (11.5-14.5)
[2021-02-02 15:21] LABS: Alanine Aminotransferase 38 U/L (4-35); Albumin Level 4.2 g/dL (3.5-5.1); Alkaline Phosphatase 73 U/L (38-126); Anion Gap 8 mmol/L (8-16); Aspartate Amino Transferase 27 U/L (14-36); Bilirubin,Total 0.6 mg/dL (0.2-1.3); Blood Urea Nitrogen 8 mg/dL (7-17); Calcium 9.2 mg/dL (8.4-10.2); Carbon Dioxide 27 mmol/L (22-30); Chloride 97 mmol/L (98-107); Estimated CRCL calculation 146 ml/min; Estimated Glomerular Filt Rate > 60; Glucose 103 mg/dL (65-110); Potassium 3.3 mmol/L (3.4-5.0); Sodium 132 mmol/L (137-145)
[2021-02-02] MEDS: LACTATED RINGERS 1,000 ML 150 ML IV CONT (17:43)
[2021-02-02 20:25] VITALS: PULSE 88; RESP 18; O2SAT 93
[2021-02-02 23:49] VITALS: O2SAT 93
[2021-02-03] MEDS: LACTATED RINGERS 1,000 ML 150 ML IV CONT ×2 (01:11→09:16)
[2021-02-03] MEDS: ONDANSETRON INJ 4 MG/2 ML VIAL IV PUSH (01:11)
[2021-02-03 08:05] LABS: Alanine Aminotransferase 36 U/L (4-35); Albumin Level 4.2 g/dL (3.5-5.1); Alkaline Phosphatase 72 U/L (38-126); Anion Gap 9 mmol/L (8-16); Aspartate Amino Transferase 25 U/L (14-36); Bilirubin,Total 0.5 mg/dL (0.2-1.3); Blood Urea Nitrogen 8 mg/dL (7-17); Calcium 9.1 mg/dL (8.4-10.2); Carbon Dioxide 25 mmol/L (22-30); Chloride 98 mmol/L (98-107); Estimated CRCL calculation 146 ml/min; Estimated Glomerular Filt Rate > 60; Glucose 114 mg/dL (65-110); Potassium 3.3 mmol/L (3.4-5.0); Sodium 132 mmol/L (137-145)
[2021-02-03 08:21] LABS: Basophils Percent Auto 0.4 % (0.2-1.2); Eosinophils Percent Auto 0.1 % (0-4.4); Hemoglobin 12.9 g/dL (12.0-15.0); Immature Granulocyte Absolute 0.02 K/mm3 (0.00-0.031); Immature Granulocyte Percent A 0.2 % (0-0.5); Lymphocytes Absolute Auto 1.75 K/mm3 (0.9-3.2); Lymphocytes Percent Auto 20.6 % (18.3-44.2); Mean Corpuscular HGB Conc 33.9 g/dl (32-36); Mean Corpuscular Hemoglobin 29.6 pg (26-34); Mean Corpuscular Volume 87.2 fl (80-100); Mean Platelet Volume 10.4 fl (7.4-10.4); Monocytes Absolute Auto 0.8 K/mm3 (0.1-0.6); Neutrophils Absolute Auto 5.9 K/mm3 (1.3-6.7); Neutrophils Percent Auto 69.7 % (45.5-73.1); Platelet Count Result 285 k/mm3 (150-375); Red Blood Count 4.36 M/mm3 (4.2-5.4); Red Cell Distribution Width 13.4 % (11.5-14.5); White Blood Count 8.5 K/mm3 (4.5-10.0)
[2021-02-03] MEDS: MELOXICAM 7.5 MG TABLET 15 MG PO (09:22)
[2021-02-03] MEDS: HYDROcodone/acetaminophen (*CRX) 5-325 MG TABLET 1 TAB PO (12:07)
--- NOTE | 2021-02-03 13:46 | PM.DS ---
DS: Admitting Diagnosis Discharge Date 02/03/2021 Admitting Diagnosis Acute cholecystitis DS: Discharge Diagnosis Discharge Diagnosis (1) Cholecystitis: Code(s): K81.9 - Cholecystitis, unspecified Status: Acute DS: Summary Hospital Course Reason for hospitalization: Cholecystitis Hospital Course: This is a 35-year-old who presented to the emergency department on 02/01/2021. She was experiencing upper abdominal pain and was found to have evidence of cholecystitis. She was admitted for further treatment. She underwent laparoscopic cholecystectomy on 02/01/2021 and was returned to the surgical floor postoperatively. Surgery was uncomplicated. Her diet was advanced as tolerated. She was having significant nausea and vomiting initially postoperatively. On postop day 1 she was still experiencing significant nausea and vomiting and had to be backed off to a clear liquid diet again. Her diet was then able to be advanced on postop day 2. She had a normal white blood count, normal liver enzymes, and she was remaining hemodynamically stable. Her nausea had resolved and she was feeling much better. She was then discharged on 02/03/2021. Status at Discharge Functional status at discharge: independent ambulation Overall status at discharge: patient is progressing back to baseline Time Spent with Patient Time attestation: Total time spent providing and/or coordinating discharge services: Time spent: Less than 30 minutes Exam Const: General: cooperative and no acute distress Orientation/consciousness: patient oriented x3 Resp: Effort & Inspection: normal respiratory effort Auscultation: clear to auscultation bilaterally Cardio: Rate: regular rate Rhythm: regular rhythm Heart sounds: S1 normal heart sound present and S2 normal heart sound present GI: Inspection: non-distended and incision (Intact with glue) GI Palp: Yes Soft to palpation, Yes Tenderness to palpation present (GI) (Incisional) and No Guarding due to palpation present (GI) Auscultation: normal bowel sounds DS: Data Data Completed and Pending Pending studies at discharge: Pending at discharge 02/01/21 14:50 Surgical [PTH] Routine Labs on day of discharge: Labs from last 24 hours 02/03/21 02/03/21 02/02/21 07:11 07:11 15:00 WBC 8.5 RBC 4.36 Hgb 12.9 Hct 38.0 MCV 87.2 MCH 29.6 MCHC 33.9 RDW 13.4 Plt Count 285 MPV 10.4 Immature Gran % (Auto) 0.2 Neut % (Auto) 69.7 Lymph % (Auto) 20.6 [place] % (Auto) 9.0 H Eos % (Auto) 0.1 Baso % (Auto) 0.4 Lymph # (Auto) 1.75 [place] # (Auto) 0.8 H Eos # (Auto) 0.0 Baso # (Auto) 0.0 Abs Immat Gran (auto) 0.02 Absolute Neuts (auto) 5.9 Absolute Nucleated RBC 0.0 Nucleated RBC % 0.0 Sodium 132 L 132 L Potassium 3.3 L 3.3 L Chloride 98 97 L Carbon Dioxide 25 27 Anion Gap 9 8 BUN 8 8 Creatinine 0.60 L 0.60 L Estim Creat Clear Calc 146 146 Estimated GFR > 60 > 60 Glucose 114 H 103 Calcium 9.1 9.2 Total Bilirubin 0.5 0.6 AST 25 27 ALT 36 H 38 H Alkaline Phosphatase 72 73 Total Protein 7.0 7.0 Albumin 4.2 4.2 02/02/21 15:00 WBC 11.0 H RBC 4.26 Hgb 12.5 Hct 37.1 MCV 87.1 MCH 29.3 MCHC 33.7 RDW 13.9 Plt Count 299 MPV 10.0 Immature Gran % (Auto) Neut % (Auto) Lymph % (Auto) [place] % (Auto) Eos % (Auto) Baso % (Auto) Lymph # (Auto) [place] # (Auto) Eos # (Auto) Baso # (Auto) Abs Immat Gran (auto) Absolute Neuts (auto) Absolute Nucleated RBC Nucleated RBC % Sodium Potassium Chloride Carbon Dioxide Anion Gap BUN Creatinine Estim Creat Clear Calc Estimated GFR Glucose Calcium Total Bilirubin AST ALT Alkaline Phosphatase Total Protein Albumin Discharge Plan Discharge Attending physician on discharge: Trixie Schmitt Discharging Clinician: Rylan Martinez Anticipated Discharge Date/Time: 02/03/21 13:
[2021-02-03 14:00] VITALS: BP 128/83; PULSE 98; RESP 16; TEMP 36.2; O2SAT 96
--- NOTE | 2021-02-04 14:43 | PC.NURSE ---
Patient called stating they had increased nausea and discomfort. Patient directed to go to the emergency room if they felt this was a medical emergency and given the office number for general surgery to notify exchange.
== END 2021-02-03 15:40 | disposition home or self-care (01) ==
PROVIDERS: Admitting Provider Surgery; PCP Internal Medicine; Visit Provider Surgery
PROC: 0FT44ZZ Resection of Gallbladder, Percutaneous Endoscopic Approach (ICD-10-PCS; CPT 47562; principal; 2021-02-01 15:15)
DX: K81.1 Chronic cholecystitis (principal)
CPT/HCPCS: 47562; 36415; 80053; 85025; 85027; 87426; 88304; 96374; A9270; C9803; G0378; G0379; J0330; J1100; J1170; J2250; J2270; J2405; J2543; J2704; J2710; J3010; J7120

== ENCOUNTER 2021-02-04 15:53 | Observation (INO) | payer OTHER, SELFPAY ==
--- NOTE | ~2021-02-04 | CT_ITS ---
EXAMINATION: CT abdomen pelvis w con DATE: 02/04/2021 20:15 INDICATION: Right upper quadrant abdominal pain post arthroscopic cholecystectomy. TECHNIQUE: Computed tomography (CT) of the abdomen and pelvis was performed with 100 mL Omnipaque-350 intravenous contrast. Automated exposure control and iterative reconstruction technique were employe d. The dose-length product was 1053.89 mGy-cm. COMPARISON: 02/01/2021 FINDINGS: Lung bases are clear. Heart size is normal. No pericardial or pleural effusion. Small sliding-type hi atal hernia with suggestion of some mild wall thickening at the distal esophagus which could be relat ed to reflux. Cholecystectomy clips the gallbladder fossa. Liver is normal. No perihepatic fluid varun ections to suggest postoperative hemorrhage or biloma. Pancreas, spleen, left kidney and bilateral ad renal glands are normal. There are scattered cortical scarring at the right kidney likely related to prior infection or infarction. Suture line at the tip the cecum there are few adjacent surgical clips likely related to prior appendectomy. No bowel obstruction. Bladder, retroverted uterus and bilatera l adnexa are unremarkable. Minimal low density free fluid in the pelvis which could be physiologic or residual postoperative fluid. No abscess or higher attenuation hematomas identified. Expected small amount of nondependent intraperitoneal and anterior abdominal wall subcutaneous gas likely related to the reported recent surgery. No pathologically enlarged abdominal or pelvic lymphadenopathy. Moderat e lumbosacral spondylosis. IMPRESSION: 1. Expected postoperative changes of recent laparoscopic cholecystectomy including minimal free fluid in the deep pelvis. Normal-appearing liver with no intrahepatic biliary ductal dilation and no signi ficant fluid collections in the abdomen or pelvis to suggest abscess, hematoma or biloma. 2. Small sliding-type hiatal hernia with mild wall thickening the distal esophagus which could be rel ated to reflux. Reviewed, dictated and finalized at location A. COUNSELOR IMPRESSION: 1. Expected postoperative changes of recent laparoscopic cholecystectomy includ ing minimal free fluid in the deep pelvis. Normal-appearing liver with no intra hepatic biliary ductal dilation and no significant fluid collections in the abd omen or pelvis to suggest abscess, hematoma or biloma. 2. Small sliding-type hiatal hernia with mild wall thickening the distal esopha eyad which could be related to reflux.
[2021-02-04] MEDS: PROMETHAZINE HCL 25 MG/ML AMPUL IM (16:09)
[2021-02-04 16:13] VITALS: BP 146/111; PULSE 115; RESP 24; TEMP 36.8; O2SAT 99
--- NOTE | 2021-02-04 16:15 | ED.NAVMDI ---
HPI - Nausea/Vomiting/Diarrhea General Chief complaint: Nausea/Vomiting/Diarrhea Stated complaint: PROBLEMS AFTER GB SURGERY Source: patient, family and RN notes reviewed Mode of arrival: wheelchair Limitations: no limitations History of Present Illness HPI Narrative: Patient had gallbladder surgery 2 days ago. She was doing well up Hospital taking food orally without difficulty. She was at home today and approximately an hour prior to arrival she began having intractable nausea vomiting. On arrival she is retching continuously unable to stop. She says that her abdomen hurts especially in her right upper quadrant. She denies any fever chills or diarrhea. MD elicited complaint: vomiting Pertinent past history: abdominal surgery Onset (ago): hour(s) (1) Description of vomiting: bilious and continuous Description of diarrhea: watery Associated nausea: Yes Associated abdominal pain: Yes Location of pain: epigastric Severity: mild Quality: cramping Associated symptoms: denies other symptoms Treatment prior to arrival: none Related Data Home Medications Medication Instructions Recorded Confirmed albuterol sulfate 2 puff INHALATION QID PRN 11/21/19 02/04/21 meloxicam 15 mg PO DAILY 02/01/21 02/04/21 Allergies Allergy/AdvReac Type Severity Reaction Status Date / Time amoxicillin [From Augmentin] AdvReac Vomiting Verified 02/01/21 14:16 clavulanic acid AdvReac Vomiting Verified 02/01/21 14:16 [From Augmentin] Review of Systems Review of Systems: All systems reviewed & are unremarkable except as noted in HPI and below PMFSH Past Medical History Medical History (Updated 02/04/21 @ 21:07 by Wilfred Marcano MD) Biliary colic Cholecystitis Shoulder pain, right Surgical History Surgical History (Updated 02/04/21 @ 16:18 by Wilfred Marcano MD) Hx laparoscopic cholecystectomy Family History Family History Mother Family history of diabetes mellitus in first degree relative Father Family history of malignant neoplasm of urinary bladder Family history of heart disease in male family member before age 55 Social History Social History Smoking status: Never smoker Alcohol intake: never Substance use: never Substance use type: opiates Last use: 01/31/21 Gender identity (if verbalized by the patient): Female Sexual Orientation (if Verbalized by the Patient): Straight or Heterosexual Spiritual care concerns: No Exam Const: General: alert and ill appearing acutely Nutritional Appearance: well nourished Orientation/consciousness: patient oriented x3 Other: female nurse in room during examination. HENMT: Head: normal to inspection Ears: external ears normal Face and sinus: normal facial exam Eyes: Cornea: corneas normal Pupils: Equal, round and reactive pupils present EOM: EOMs intact bilaterally Neck: Neck: normal visual inspection Resp: Effort & Inspection: normal respiratory effort Auscultation: clear to auscultation bilaterally Cardio: Rate: tachycardic Rhythm: regular rhythm GI: GI Palp: Yes Soft to palpation, Yes Tenderness to palpation present (GI) (severe RUQ) and Yes Guarding due to palpation present (GI) Auscultation: normal bowel sounds Back/Spine/Pelvis: Cervical Spine: cervical ROM normal Thoracic/Lumbar Spine: thoraco-lumbar ROM normal Skin: General skin exam: normal color Rashes: no rashes Neuro: General: patient oriented x3, moves all extremities, no meningeal signs, no focal motor deficits and CN's II-XI intact bilaterally Speech: normal speech Gait exam (Neuro): Normal gait present Extrem: General: normal to inspection and no clubbing, cyanosis or edema Psych: Appearance: grossly normal and well kempt Mental Status: mental status grossly normal Affect: normal affect Attitude: cooperative Thought content: Yes Normal thought content present Course
[2021-02-04] MEDS: ONDANSETRON INJ 4 MG/2 ML VIAL IV PUSH ×2 (16:24→21:21)
[2021-02-04] MEDS: SODIUM CHLORIDE 0.9% IV 1,000 ML 999 ML IV CONT (16:40)
--- NOTE | 2021-02-04 16:40 | PC.NURSE ---
Pt requesting ice chips. Per Dr. Marcano pt is to remain NPO. Pt ok to have mouth swabs.
--- NOTE | 2021-02-04 16:51 | PC.NURSE ---
Lab called to draw blood.
[2021-02-04 17:05] LABS: Basophils Absolute Auto 0.03 K/mm3 (0.00-0.10); Basophils Percent Auto 0.2 % (0.0-1.0); Eosinophils Absolute Auto 0.05 K/mm3 (0.02-0.50); Eosinophils Percent Auto 0.4 % (1.0-6.0); Hematocrit 40.1 % (35.0-49.0); Hemoglobin 13.4 g/dL (12.0-15.0); Immature Granulocyte Absolute 0.06 K/mm3 (0.00-0.00); Immature Granulocyte Percent A 0.4 % (0.0-0.0); Lymphocytes Absolute Auto 1.42 K/mm3 (1.10-4.50); Lymphocytes Percent Auto 10.4 % (18.0-42.0); Mean Corpuscular HGB Conc 33.4 g/dL (32.0-36.0); Mean Corpuscular Hemoglobin 28.8 pg (27.0-31.0); Mean Corpuscular Volume 86.2 fL (78.0-102.0); Mean Platelet Volume 9.8 fl (9.2-11.8); Monocytes Absolute Auto 0.82 K/mm3 (0.10-0.90); Neutrophils Absolute Auto 11.3 K/mm3 (1.7-7.2); Neutrophils Percent Auto 82.6 % (50.0-70.0); Platelet Count Result 349 K/mm3 (150-420); Red Blood Count 4.65 M/mm3 (4.20-5.40); Red Cell Distribution Width 13.3 % (11.6-14.4); White Blood Count 13.7 K/mm3 (4.8-10.8)
--- NOTE | 2021-02-04 17:15 | PC.NURSE ---
Pt resting more comfortably at this time. Given cool rag for comfort.
[2021-02-04 17:19] LABS: Alanine Aminotransferase 35 U/L (14-59); Albumin Level 3.7 g/dL (3.4-5.0); Alkaline Phosphatase 72 U/L (46-116); Anion Gap 14 mmol/L (8-16); Aspartate Amino Transferase 15 U/L (15-37); Bilirubin,Total 0.5 mg/dL (0.00-1.00); Blood Urea Nitrogen 17 mg/dL (7-18); Carbon Dioxide 25 mmol/L (21-32); Chloride 99 mmol/L (98-108); Estimated CRCL calculation 73 ml/min; Estimated Glomerular Filt Rate > 60; Glucose 202 mg/dL (70-99); Lipase 52 U/L (73-393); Osmolality Calculated 293 mOsm/kg (285-295); Potassium 3.3 mmol/L (3.5-5.1); Sodium 138 mmol/L (136-145); Total Protein 7.4 g/dL (6.4-8.2)
--- NOTE | 2021-02-04 18:24 | PC.NURSE ---
Pt stated she would like to be transferred to [facility] via ambulance.
--- NOTE | 2021-02-04 18:28 | PC.NURSE ---
Initial call made to [facility] for transfer. Spoke to Jacek RenteriaLocal City Driver.
--- NOTE | 2021-02-04 18:57 | PC.NURSE ---
Dr. Martinez, Surgeon from [facility] called and spoke with Dr. Marcano. Dr. Martinez does not want to accept pt at this time. Waiting to hear back from hospitalist to see if they will accept pt.
--- NOTE | 2021-02-04 18:58 | PC.NURSE ---
Report given to ELLE Boggs
--- NOTE | 2021-02-04 19:05 | PC.NURSE ---
Report taken from ELLE Tapia
--- NOTE | 2021-02-04 19:14 | PC.NURSE ---
Patient given warm blanket and update on plan of care to potentially transfer to [facility] for admission
[2021-02-04 19:44] LABS: Appearance Urine Clear (Clear); Bilirubin Urine Negative (Negative); Color Urine Yellow (Yellow); Glucose Urine UA Negative (Negative); Ketones Urine 2+ (Negative); Leukocyte Esterase Ur Negative LEU/UL (Negative); Nitrate Urine Negative (Negative); Protein Urine Negative (Negative); Urobilinogen Urine 0.2 mg/dL (0.2-1.0); pH Urine 8.5 (5.0-8.0)
--- NOTE | 2021-02-04 19:47 | PC.NURSE ---
Spoke with lab who is aware physician is adding on a UA test .
[2021-02-04 19:52] LABS: Add Urine Microscopic? YES; Blood Urine Trace-Intact (Negative); RBC Urine 0-2 /hpf (0-2); Squamous Epithelial Cell Urine Moderate /hpf (Few); WBC Urine None seen /hpf (0-3)
[2021-02-04 19:53] LABS: Bacteria Urine 1+ /hpf; Mucus Urine Heavy /lpf
[2021-02-04 19:54] LABS: Pregnancy On Board Control Positive; Urine Pregnancy Test Negative
[2021-02-04 20:25] LABS: Lactic Acid Reflex 1.4 mmol/L (0.4-2.0)
[2021-02-04] MEDS: HYDROmorphone HCL INJ (*CRX) 2 MG/ML VIAL 1 MG IV PUSH (20:49)
[2021-02-04 20:51] VITALS: BP 142/88; PULSE 91; RESP 18; TEMP 36.4; O2SAT 96
--- NOTE | 2021-02-04 21:03 | PC.NURSE ---
Dr. Marcano spoke with hospitalist in regards of transferring patient to [facility] for irretracable pain, nausea and vomiting. After speaking with the hospitalist, both hospitalist and surgeon refused to admit patient at this time.
--- NOTE | 2021-02-04 21:10 | PC.NURSE ---
Spoke with patient in regards to 23hr observation for pain and nausea control. Patient agreeable to stay. given ice chips at this time. denies any other questions or concerns.
[2021-02-04] MEDS: DEXTROSE 5%/0.45% SOD CHL 1,000 ML 100 ML IV CONT (21:21)
[2021-02-04 21:25] VITALS: BP 132/86; PULSE 72; RESP 16; TEMP 36.4; O2SAT 96
[2021-02-04 21:57] VITALS: BP 148/96; PULSE 91; RESP 16; TEMP 37.5; O2SAT 98
[2021-02-04 22:03] VITALS: BMI 33.6
--- NOTE | 2021-02-04 22:18 | PC.NURSE ---
Patient brought to floor from ER via wheelchair. Patient alert and oriented x3, able to make needs known. Patient drowsy from pain medications given in ER. Patient resting in bed with SR up x2 and call light within reach. Bedside table next to bed with belongings within reach. Patient c/o pain just below bra line mid upper abd. Patient has x4 <1 inch incision sites to abd. Glue on sites. Bruising noted below the lower mid abd incision site. No redness, swelling, or drainage noted from sited. IV site without redness, swelling, or drainage. IV infusing without difficulty. Dressing to IV insertion site clean, dry, intact.
--- NOTE | 2021-02-04 23:30 | PC.NURSE ---
Patient crying, requesting pain medicine. No pain med ordered. Dr Marcano notified and will order pain med.
[2021-02-05] VITALS: BP 123/70; PULSE 87; RESP 16; TEMP 36.8; O2SAT 97
[2021-02-05] MEDS: HYDROmorphone HCL INJ (*CRX) 2 MG/ML VIAL 1 MG IV PUSH ×7 (00:49→22:38)
[2021-02-05 05:29] LABS: Basophils Absolute Auto 0.02 K/mm3 (0.00-0.10); Basophils Percent Auto 0.2 % (0.0-1.0); Eosinophils Absolute Auto 0.09 K/mm3 (0.02-0.50); Eosinophils Percent Auto 0.8 % (1.0-6.0); Hematocrit 35.5 % (35.0-49.0); Hemoglobin 11.8 g/dL (12.0-15.0); Immature Granulocyte Absolute 0.05 K/mm3 (0.00-0.00); Immature Granulocyte Percent A 0.4 % (0.0-0.0); Lymphocytes Absolute Auto 2.89 K/mm3 (1.10-4.50); Lymphocytes Percent Auto 25.2 % (18.0-42.0); Mean Corpuscular HGB Conc 33.2 g/dL (32.0-36.0); Mean Corpuscular Hemoglobin 29.1 pg (27.0-31.0); Mean Corpuscular Volume 87.7 fL (78.0-102.0); Mean Platelet Volume 10.1 fl (9.2-11.8); Monocytes Absolute Auto 1.06 K/mm3 (0.10-0.90); Monocytes Percent Auto 9.3 % (2.0-11.0); Neutrophils Absolute Auto 7.3 K/mm3 (1.7-7.2); Neutrophils Percent Auto 64.1 % (50.0-70.0); Platelet Count Result 318 K/mm3 (150-420); Red Blood Count 4.05 M/mm3 (4.20-5.40); Red Cell Distribution Width 13.4 % (11.6-14.4); White Blood Count 11.5 K/mm3 (4.8-10.8)
[2021-02-05 05:40] LABS: Anion Gap 8 mmol/L (8-16); Blood Urea Nitrogen 9 mg/dL (7-18); Calcium 8.3 mg/dL (8.5-10.1); Carbon Dioxide 29 mmol/L (21-32); Chloride 100 mmol/L (98-108); Estimated CRCL calculation 105 ml/min; Estimated Glomerular Filt Rate > 60; Glucose 133 mg/dL (70-99); Osmolality Calculated 284 mOsm/kg (285-295); Potassium 3.1 mmol/L (3.5-5.1); Sodium 137 mmol/L (136-145)
[2021-02-05] MEDS: DEXTROSE 5%/0.45% SOD CHL 1,000 ML 100 ML IV CONT ×2 (06:28→17:34)
[2021-02-05 08:00] VITALS: BP 108/68; PULSE 70; RESP 20; TEMP 36.4; O2SAT 98
[2021-02-05 09:51] LABS: Hemoglobin A1C 5.9 % (<5.7)
[2021-02-05] MEDS: POTASSIUM CHLORIDE 20 MEQ TABLET PO (09:53)
[2021-02-05] MEDS: KCL 20 MEQ/SW 100 ML 100 ML 50 MEQ IVPB (10:08)
--- NOTE | 2021-02-05 15:08 | PM.IMHP ---
H&P: HPI History of Present Illness Date/Time: 02/05/21 15:08 this is a 35-year-old female who presented to our emergency department with right upper quadrant pain and nausea and vomiting. Patient has a past medical history of biliary colic, cholecystitis and right shoulder pain. Patient recently had a cholecystectomy on02/01/2021. It is noted in the discharge note that patient has significant nausea and vomiting initially postoperative who eventually had her diet advanced. Surgery was notified of patient's condition and it was not believed to be surgery related. Patient chose to stay here at our hospital.Her condition has improved since admission. WBCs 11.5, hemoglobin 9.8, hematocrit 35.5, platelets 318, sodium 137, potassium 3.1, BUN 9, creatinine 0.70, glucose 133, A1c 5.9, UA positive for ketones blood and bacteria, CT of the abdomen unremarkable EKG sinus rhythm with a heart rate of 96. The patient denies SOB, CP, palpitation, extremity numbness, lightheadedness, dizziness, constipation, diarrhea, chills, or fever. Observation Time spent 60 Chief Complaint: Nausea vomiting abdominal pain Review of Systems Review of Systems: A 14 organ system Review of Systems was performed and pertinent positives included in the HPI, otherwise remaining ROS is negative. [facility] Past Medical History Medical History (Updated 02/05/21 @ 15:15 by MIGNON Garcia) Biliary colic Cholecystitis Shoulder pain, right Surgical History Surgical History (Updated 02/04/21 @ 16:18 by Wilfred Marcano MD) Hx laparoscopic cholecystectomy Family History Family History Mother Family history of diabetes mellitus in first degree relative Father Family history of malignant neoplasm of urinary bladder Family history of heart disease in male family member before age 55 Social History Social History Smoking status: Never smoker Second hand tobacco smoke exposure: No Alcohol intake: never Substance use: current Substance use type: marijuana Last use: 01/31/21 Gender identity (if verbalized by the patient): Female Sexual Orientation (if Verbalized by the Patient): Straight or Heterosexual Spiritual care concerns: No Meds Home Medications and Allergies Home Medications Medication Instructions Recorded Confirmed Type albuterol sulfate 2 puff INHALATION QID PRN 11/21/19 02/04/21 History hydrocodone-acetaminophen 1 tablet PO Q6H PRN #20 tablet 02/01/21 02/04/21 Rx meloxicam 15 mg PO DAILY 02/01/21 02/04/21 History Allergies Allergy/AdvReac Type Severity Reaction Status Date / Time amoxicillin [From Augmentin] AdvReac Vomiting Verified 02/01/21 14:16 clavulanic acid AdvReac Vomiting Verified 02/01/21 14:16 [From Augmentin] Vital Signs Vital Signs - 24 hr 02/04/21 16:13 02/04/21 20:51 02/04/21 21:25 Temperature 98.2 F 97.6 F 97.6 F Pulse Rate 115 H 91 72 Respiratory Rate 24 H 18 16 Blood Pressure 146/111 H 142/88 H 132/86 Pulse Oximetry 99 96 96 02/04/21 21:57 02/05/21 00:00 02/05/21 08:00 Temperature 99.5 F 98.3 F 97.6 F Pulse Rate 91 87 70 Respiratory Rate 16 16 20 Blood Pressure 148/96 H 123/70 108/68 Pulse Oximetry 98 97 98 Exam Narrative: GENERAL: This is a well-nourished, well-developed patient, in no apparent distress. HEAD: normocephalic, atraumatic. EYES: PERRL. Sclera clear/white. Vision is grossly intact. EARS: External ears normal, auditory canals clear and without drainage, TMs normal without perforation. Hearing grossly intact. NOSE: External nose normal with no obvious nasal discharge, nares without redness, no rhinorrhea. THROAT: Mucous membranes moist, posterior pharynx clear. NECK: Neck supple, non-tender without lymphadenopathy, masses or thyromegaly. CARDIOVASCULAR: Regular rate and rhythm without murmurs, gallops, or rubs. RESPIRATORY: Clear to auscultation. Breath gypsy
[2021-02-05 16:00] VITALS: BP 116/78; PULSE 70; RESP 20; TEMP 36.4; O2SAT 97
[2021-02-05] MEDS: ONDANSETRON INJ 4 MG/2 ML VIAL IV PUSH (17:26)
[2021-02-05] MEDS: traZODone HCL 50 MG TABLET PO (20:07)
[2021-02-06] VITALS: BP 122/77; PULSE 73; RESP 20; TEMP 36.4; O2SAT 99
[2021-02-06] MEDS: ONDANSETRON INJ 4 MG/2 ML VIAL IV PUSH (03:50)
[2021-02-06] MEDS: DEXTROSE 5%/0.45% SOD CHL 1,000 ML 100 ML IV CONT (03:51)
[2021-02-06 05:13] LABS: Hematocrit 35.5 % (35.0-49.0); Hemoglobin 11.3 g/dL (12.0-15.0); Mean Corpuscular HGB Conc 31.8 g/dL (32.0-36.0); Mean Corpuscular Hemoglobin 28.5 pg (27.0-31.0); Mean Corpuscular Volume 89.4 fL (78.0-102.0); Mean Platelet Volume 9.7 fl (9.2-11.8); Platelet Count Result 269 K/mm3 (150-420); Red Blood Count 3.97 M/mm3 (4.20-5.40); Red Cell Distribution Width 13.7 % (11.6-14.4); White Blood Count 7.7 K/mm3 (4.8-10.8)
[2021-02-06 05:33] LABS: Alanine Aminotransferase 23 U/L (14-59); Alkaline Phosphatase 59 U/L (46-116); Anion Gap 7 mmol/L (8-16); Aspartate Amino Transferase < 10 U/L (15-37); Bilirubin,Total 0.3 mg/dL (0.00-1.00); Blood Urea Nitrogen 6 mg/dL (7-18); Calcium 8.3 mg/dL (8.5-10.1); Carbon Dioxide 29 mmol/L (21-32); Chloride 105 mmol/L (98-108); Estimated CRCL calculation 98 ml/min; Estimated Glomerular Filt Rate > 60; Glucose 114 mg/dL (70-99); Osmolality Calculated 290 mOsm/kg (285-295); Potassium 3.6 mmol/L (3.5-5.1); Sodium 141 mmol/L (136-145); Total Protein 6.2 g/dL (6.4-8.2)
[2021-02-06 08:00] VITALS: BP 123/80; PULSE 73; RESP 18; TEMP 37.1; O2SAT 97
[2021-02-06] MEDS: ENOXAPARIN 40 MG/0.4 ML SYRINGE SUB-Q (08:25)
--- NOTE | 2021-02-06 09:56 | P.DS_ITS ---
DS: Admitting Diagnosis Discharge Date 02/06/2021 <Rylan Dasilva APN-C - Last Filed: 02/06/21 11:28> Admitting Diagnosis Intractable Vomiting, RUQ Pain s/p Cholecystectomy <YUE MaeC - Last Filed: 02/06/21 11:28> DS: Discharge Diagnosis Discharge Diagnosis (1) Intractable vomiting: Qualifiers: Nausea presence: with nausea Vomiting type: unspecified Qualified Code(s): R11.2 - Nausea with vomiting, unspecified <Rylan Dasilva APN-C - Last Filed: 02/06/21 11:28> Code(s): R11.10 - Vomiting, unspecified <Rylan Dasilva APN-C - Last Filed: 02/06/21 11:28> Status: Acute <Rylan Dasilva APN-C - Last Filed: 02/06/21 11:28> Assessment and Plan: * Possible surgical residual * Continue Zofran and Compazine * Patient willl more than likely need to discharge home with Zofran * Tolerating clear liquid diet will advance 02/06/2021 Resolved, tolerating foods and drink <Rylan Dasilva APN-C - Last Filed: 02/06/21 11:28> (2) Abdominal pain, RUQ: Code(s): R10.11 - Right upper quadrant pain <Rylan Dasilva APN-C - Last Filed: 02/06/21 11:28> Status: Acute <Rylan Dasilva APN-C - Last Filed: 02/06/21 11:28> Assessment and Plan: * Secondary to surgery 02/06/2021 Improved <Rylan Dasilva APN-C - Last Filed: 02/06/21 11:28> (3) Biliary colic: Code(s): K80.50 - Calculus of bile duct without cholangitis or cholecystitis without obstruction <Rylan Dasilva APN-C - Last Filed: 02/06/21 11:28> Status: Acute <yRlan Dasilva APN-C - Last Filed: 02/06/21 11:28> Assessment and Plan: 02/06/2021 Cholecystectomy prior to admission here. <PITA MaeN-C - Last Filed: 02/06/21 11:28> (4) Shoulder pain: Code(s): M25.519 - Pain in unspecified shoulder <Rylan DasilvaABELARDO - Last Filed: 02/06/21 11:28> Status: Acute <Rylan DasilvaALLEGRACharlotteLizett - Last Filed: 02/06/21 11:28> Assessment and Plan: * Continue pain medication 02/06/2021 Pt did not have complaints of shoulder pain today <Rylan SalazarALLEGRA fernandoCharlotteC - Last Filed: 02/06/21 11:28> DS: Summary Hospital Course Hospital Course: Abdominal pain improved, tolerating foods and liquids well. <Rylan DasilvaALLEGRACharlotteLizett - Last Filed: 02/06/21 11:28> Time Spent with Patient Time attestation: Total time spent providing and/or coordinating discharge services: < 30 minutes <Rylan SalazarABELARDO fernando - Last Filed: 02/06/21 11:28> Exam Const: General: cooperative, healthy appearing, comfortable, no acute distress, well developed, alert, awake and Physically active <Rylan SalazarALLEGRA fernandoCharlotteC - Last Filed: 02/06/21 11:28> Nutritional Appearance: overweight <Rylan SalazarALLEGRA fernandoCharlotteLizett - Last Filed: 02/06/21 11:28> Resp: Effort & Inspection: normal respiratory effort and no cough <Rylan SalazarALLEGRA fernandoCharlotteLizett - Last Filed: 02/06/21 11:28> Auscultation: clear to auscultation bilaterally, no crackles, no rales, no rhonchi and no wheezes <Rylan SalazarYUE fernandoC - Last Filed: 02/06/21 11:28> Cardio: Rate: regular rate <Rylan SalazarALLEGRA fernandoCharlotteLizett - Last Filed: 02/06/21 11:28> Heart sounds: S1 normal heart sound present and S2 normal heart sound present <Rylan SalazarALLEGRA fernandoCharlotteLizett - Last Filed: 02/06/21 11:28> GI: GI Palp: Yes Soft to palpation, Yes Tenderness to palpation present (GI) (RUQ) and No Guarding due to palpation present (GI) <ABELARDO Mae - Last Filed: 02/06/21 11:28> Auscultation: normal bowel sounds <ABELARDO Mae La
--- NOTE | 2021-02-06 09:56 | PM.DS ---
DS: Admitting Diagnosis Discharge Date 02/06/2021 <YUE MaeC - Last Filed: 02/06/21 11:28> Admitting Diagnosis Intractable Vomiting, RUQ Pain s/p Cholecystectomy <YUE MaeC - Last Filed: 02/06/21 11:28> DS: Discharge Diagnosis Discharge Diagnosis (1) Intractable vomiting: Qualifiers: Nausea presence: with nausea Vomiting type: unspecified Qualified Code(s): R11.2 - Nausea with vomiting, unspecified <YUE MaeC - Last Filed: 02/06/21 11:28> Code(s): R11.10 - Vomiting, unspecified <Rylan Dasilva APN-C - Last Filed: 02/06/21 11:28> Status: Acute <Rylan Dasilva APN-C - Last Filed: 02/06/21 11:28> Assessment and Plan: Possible surgical residual Continue Zofran and Compazine Patient willl more than likely need to discharge home with Zofran Tolerating clear liquid diet will advance 02/06/2021 Resolved, tolerating foods and drink <Rylan Dasilva APN-C - Last Filed: 02/06/21 11:28> (2) Abdominal pain, RUQ: Code(s): R10.11 - Right upper quadrant pain <YUE MaeC - Last Filed: 02/06/21 11:28> Status: Acute <Rylan Dasilva APN-C - Last Filed: 02/06/21 11:28> Assessment and Plan: Secondary to surgery 02/06/2021 Improved <Rylan Dasilva APN-C - Last Filed: 02/06/21 11:28> (3) Biliary colic: Code(s): K80.50 - Calculus of bile duct without cholangitis or cholecystitis without obstruction <YUE MaeC - Last Filed: 02/06/21 11:28> Status: Acute <Rylan Dasilva APN-C - Last Filed: 02/06/21 11:28> Assessment and Plan: 02/06/2021 Cholecystectomy prior to admission here. <YUE MaeC - Last Filed: 02/06/21 11:28> (4) Shoulder pain: Code(s): M25.519 - Pain in unspecified shoulder <Rylan SalazarABELARDO fernando - Last Filed: 02/06/21 11:28> Status: Acute <Rylan DasilvaABELARDO - Last Filed: 02/06/21 11:28> Assessment and Plan: Continue pain medication 02/06/2021 Pt did not have complaints of shoulder pain today <Rylan DasilvaYUEC - Last Filed: 02/06/21 11:28> DS: Summary Hospital Course Hospital Course: Abdominal pain improved, tolerating foods and liquids well. <Rylan SalazarABELARDO fernando - Last Filed: 02/06/21 11:28> Time Spent with Patient Time attestation: Total time spent providing and/or coordinating discharge services: < 30 minutes <Rylan Garcia ABELARDO Dasilva - Last Filed: 02/06/21 11:28> Exam Const: General: cooperative, healthy appearing, comfortable, no acute distress, well developed, alert, awake and Physically active <Rylan DasilvaALLEGRA-C - Last Filed: 02/06/21 11:28> Nutritional Appearance: overweight <Rylan SalazarALLEGRA fernando-C - Last Filed: 02/06/21 11:28> Resp: Effort & Inspection: normal respiratory effort and no cough <Rylan SalazarALLEGRA fernandoCharlotteC - Last Filed: 02/06/21 11:28> Auscultation: clear to auscultation bilaterally, no crackles, no rales, no rhonchi and no wheezes <Rylan SalazarYUE fernandoC - Last Filed: 02/06/21 11:28> Cardio: Rate: regular rate <Rylan SalazarALLEGRA fernando-Lizett - Last Filed: 02/06/21 11:28> Heart sounds: S1 normal heart sound present and S2 normal heart sound present <Rylan SalazarALLEGRA fernando-C - Last Filed: 02/06/21 11:28> GI: GI Palp: Yes Soft to palpation, Yes Tenderness to palpation present (GI) (RUQ) and No Guarding due to palpation present (GI) <ABELARDO Mae - Last Filed: 02/06/21 11:28> Auscultation: normal bowel sounds <ABELARDO Mae - Last Filed: 02/06/21 11:28> Skin: General skin exam: normal color and dry skin <ABELARDO Mae - Last Filed: 02/06/21 11:28> Lesions: no lesions <ABELARDO Mae - Last Filed: 02/06/21 11:28> Rashes: no rashes <ABELARDO Mae - Last Filed: 02/06/21 11:28> Neuro: General: oriented to person, oriented to place, oriented to time and CN's II-XI intact b
--- NOTE | 2021-02-06 11:45 | PC.NURSE ---
Patient discharged home transported by family member via personal vehicle. All personal belongings packed up and taken with patient. IV site discontinued and removed prior to discharge. Discharge instructions given and patient acknowledges understanding of instructions. Staff escorted patient on her own power to main entrance.
--- NOTE | 2021-02-07 14:25 | PC.NURSE ---
Pt states she received and understood her discharge instructions. Pt also states her care was great, I appreciate it .
== END 2021-02-06 11:45 | disposition home or self-care (01) ==
LOC: CHSED 21:07 → CHS2ND 21:17
PROVIDERS: Nurse Practitioner; Admitting Provider Emergency Medicine; Emergency Provider Emergency Medicine; PCP Internal Medicine; Visit Provider Emergency Medicine
DX: R11.2 Nausea with vomiting, unspecified (principal); Z90.49 Acquired absence of other specified parts of digestive tract
CPT/HCPCS: 36415; 74177; 80048; 80053; 81001; 81025; 83036; 83605; 83690; 85025; 85027; 96361; 96365; 96366; 96372; 96374; 96375; 96376; 99285; A9270; G0378; G0379; J1170; J1650; J2405; J2550; J3480; J7030; Q9967

== ENCOUNTER 2021-02-19 17:59 | Emergency (ER) | payer OTHER, SELFPAY ==
--- NOTE | ~2021-02-19 | XR_ITS ---
EXAMINATION: XR chest 1V portable EXAM DATE: 02/19/2021 18:38 INDICATION: cough, dyspnea, pain @ lower/posterior RT lung area. TECHNIQUE: Portable AP frontal chest x-ray was obtained. There is no prior study for comparison. FINDINGS: There are cholecystectomy clips. The lungs are clear. There are no pleural effusions. The cardiomediastinal silhouette is within normal limits. There is no pneumothorax suspected. The bone s and soft tissues are unremarkable. Gas within stomach cardia. IMPRESSION: No acute cardiopulmonary findings. Reviewed, dictated and finalized at [facility]
[2021-02-19 18:06] VITALS: BP 131/80; PULSE 88; RESP 16; TEMP 36.5; O2SAT 100
--- NOTE | 2021-02-19 18:20 | ED.SOB ---
HPI - SOB/Dyspnea General Chief Complaint: Upper Respiratory Infection Stated Complaint: COVID EXPOSURE,CHEST PAIN, COUGH, CONGESTION Time Seen by Provider: 02/19/21 18:20 Source: patient Mode of arrival: ambulatory Limitations: no limitations History of Present Illness HPI Narrative: 35-year-old woman with a history of asthma comes in today complaining of shortness of breath, cough, wheezing, congestion, ageusia, and feeling feverish for the last 3 days. She states that multiple members of her family of tested positive for COVID recently. She has some tightness in her chest but denies chest pain, vomiting. She has had intermittent diarrhea since she had a cholecystectomy 3 weeks ago. She has been using her albuterol inhaler with limited effect. MD elicited complaint: shortness of breath, cough and asthma attack Pertinent past history: asthma Onset (ago): day(s) (3) Timing: constant and progressively worsening Severity: moderate Exacerbating factors: exertion Relieving factors: rest and bronchodilators Known history of: asthma Associated symptoms: fever, cough and wheezing Treatment prior to arrival: bronchodilator Related Data Home oxygen amount: none Home Medications Medication Instructions Recorded Confirmed albuterol sulfate 2 puff INHALATION QID PRN 11/21/19 02/19/21 meloxicam 15 mg PO DAILY 02/01/21 02/19/21 Allergies Allergy/AdvReac Type Severity Reaction Status Date / Time amoxicillin [From Augmentin] AdvReac Vomiting Verified 02/19/21 18:22 clavulanic acid AdvReac Vomiting Verified 02/19/21 18:22 [From Augmentin] Review of Systems Review of Systems: All systems reviewed & are unremarkable except as noted in HPI and below Constitutional: Constitutional: Denies chills, Reports fatigue and Reports fever(s) Eyes: Eyes: Denies change in vision and Denies photophobia ENT: Denies nasal congestion and Denies sore throat Cardiovascular: Cardiovascular: Reports chest pain Respiratory: Respiratory: Reports chest congestion, Reports cough, Reports dyspnea and Reports wheezing Gastrointestinal: Gastrointestinal: Denies abdominal pain and Denies vomiting Musculoskeletal: Musculoskeletal: Denies arthralgias and Denies joint swelling Integumentary/Breasts: Skin/Breast: Denies pruritus, Denies erythema and Denies rash Neurologic: Denies vertigo, Denies dizziness, Denies syncope and Denies weakness Allergic/Immunologic: Allergic/Immunologic: Denies lip swelling and Denies throat swelling [facility] Past Medical History Medical History Asthma Biliary colic Cholecystitis Shoulder pain, right Surgical History Surgical History Hx laparoscopic cholecystectomy Family History Family History Mother Family history of diabetes mellitus in first degree relative Father Family history of malignant neoplasm of urinary bladder Family history of heart disease in male family member before age 55 Social History Social History Smoking status: Never smoker Second hand tobacco smoke exposure: No Alcohol intake: never Substance use: current Substance use type: marijuana Last use: 01/31/21 Gender identity (if verbalized by the patient): Female Sexual Orientation (if Verbalized by the Patient): Straight or Heterosexual Spiritual care concerns: No Exam Const: General: healthy appearing and alert Orientation/consciousness: patient oriented x3 Limitations: no limitations Other: Mild acute distress. HENMT: Head: normal to inspection Ears: external ears normal, TM's normal bilaterally and EAC's normal General nose exam: Normal nares present Face and sinus: normal facial exam Mouth: Yes moist mucous membranes Throat: posterior oropharynx normal Eyes: Conjunctivae: conjunctiv
[2021-02-19] MEDS: predniSONE 20 MG TABLET 60 MG PO (18:53)
[2021-02-19 19:12] LABS: Influenza A QL RT-PCR Negative (Negative); Influenza B QL RT-PCR Negative (Negative); SARS-CoV-2 RNA PCR Positive (Negative)
[2021-02-19 19:47] VITALS: BP 102/66; PULSE 80; RESP 16; O2SAT 99
== END 2021-02-19 19:52 | disposition home or self-care (01) ==
PROVIDERS: Emergency Provider Emergency Medicine; PCP Internal Medicine
DX: U07.1 COVID-19 (principal); J45.41 Moderate persistent asthma with (acute) exacerbation
CPT/HCPCS: 71045; 87502; 99283; C9803; J7512; U0003; U0005

== ENCOUNTER 2022-10-01 13:26 | Emergency (ER) | payer OTHER, SELFPAY ==
[2022-10-01 13:34] VITALS: BP 116/79; PULSE 94; RESP 16; TEMP 36.2; O2SAT 100
--- NOTE | 2022-10-01 13:49 | ED.SKABFB ---
HPI - Skin/Abscess/Foreign Bdy General Chief complaint: Skin/Abscess/Foreign Body Stated complaint: Skin Problem Time Seen by Provider: 10/01/22 13:50 Source: patient and RN notes reviewed Mode of arrival: ambulatory Limitations: no limitations History of Present Illness HPI narrative: 37-year-old female presents with concern for rash on her upper left back. She reports the rash started about a week ago. Reports that is itchy and burning. She reports she got bit by a tick 2 weeks ago on her right hip. She says 1 week ago when the rash started she had a day of general malaise, fever, chills, body aches, fatigue. She is 6 weeks postop of left knee surgery so she has generally been having achiness. MD complaint: rash Related Data Home Medications Medication Instructions Recorded Confirmed albuterol sulfate 90 mcg/actuation 2 puff inhalation QID PRN Wheezing 11/21/19 10/01/22 aerosol inhaler meloxicam 15 mg tablet 15 mg PO DAILY 02/01/21 10/01/22 Allergies Allergy/AdvReac Type Severity Reaction Status Date / Time amoxicillin [From Augmentin] AdvReac Vomiting Verified 02/19/21 18:22 clavulanic acid AdvReac Vomiting Verified 02/19/21 18:22 [From Augmentin] Review of Systems Review of Systems: CONSTITUTIONAL: Reports episode of malaise, chills, sweats, fever 1 week ago when the rash started EYES: Denies redness, or discharge. ENT: Denies rhinorrhea, congestion, swollen lips, swollen tongue CARDIOVASCULAR: Denies chest pain, palpitations, or edema. RESPIRATORY: Denies cough or dyspnea. GASTROINTESTINAL: Denies abdominal pain, nausea, vomiting SKIN: Reports rash on her left upper back, take bite on her right hip MUSCULOSKELETAL: Denies joint pain or myalgia. NEUROLOGIC: Denies headache. All systems reviewed & are unremarkable except as noted in HPI and below PMFSH Past Medical History Medical History Asthma Biliary colic Cholecystitis Shoulder pain, right Surgical History Surgical History Hx laparoscopic cholecystectomy Family History Family History Mother Family history of diabetes mellitus in first degree relative Father Family history of malignant neoplasm of urinary bladder Family history of heart disease in male family member before age 55 Social History Social History Smoking status: Never smoker Second hand tobacco smoke exposure: No Alcohol intake: never Substance use: current Substance use type: marijuana Last use: 01/31/21 Living arrangements: with family Gender identity (if verbalized by the patient): Female Sexual Orientation (if Verbalized by the Patient): Straight or Heterosexual Spiritual care concerns: No Comments At time of signature, agree with nursing past medical, surgical, social and family history. There is no relevant family history pertinent to the presenting complaint Exam Narrative: GENERAL: Well-appearing, well-nourished, and in no acute distress. HEAD: Normocephalic, atraumatic. EYES: PERRLA, conjunctivae clear, and EOMI. ENT: Mucous membranes moist. NECK: Supple. No lymphadenopathy CHEST: Clear to auscultation. No respiratory distress. HEART: Regular rate and rhythm. SKIN: Warm, dry. Two annular patches of plaque-like rash with papules noted to the left shoulder blade, 1 annular patch of papules noted around the tick bite site on the right hip NEURO: Alert and oriented x3. PSYCH: Normal mood and affect Course Course Emergency Course: Differential diagnosis discussed with patient. Care plan discussed, patient was instructed to follow up with her doctor for further evaluation Patient is aware of diagnosis, understands and agrees to treatment plan. Anticipatory guidance given. Patient agrees to follow-up a
== END 2022-10-01 14:17 | disposition home or self-care (01) ==
PROVIDERS: Emergency Provider Nurse Practitioner; PCP Internal Medicine
DX: R21 Rash and other nonspecific skin eruption (principal); S70.261A Insect bite (nonvenomous), right hip, initial encounter; W57.XXXA Bitten or stung by nonvenomous insect and other nonvenomous arthropods, initial encounter; J45.909 Unspecified asthma, uncomplicated
CPT/HCPCS: 99213; G0463

== ENCOUNTER 2022-10-12 05:30 | Observation (INO) | payer OTHER, SELFPAY ==
--- NOTE | ~2022-10-12 | CT_ITS ---
EXAMINATION: CT abdomen pelvis w con DATE: 10/12/2022 06:45 INDICATION: Abdominal pain, nausea, vomiting, diarrhea TECHNIQUE: Computed tomography (CT) of the abdomen and pelvis was performed with 100 CC Omnipaque 350 intravenous contrast. Automated exposure control and iterative reconstruction technique were employe d. Exam dose: 862.18 mGy-cm total exam DLP. COMPARISON: 02/04/2021 CT abdomen pelvis FINDINGS: The lung bases are clear. Normal heart size. No pericardial or pleural effusion. Status post cholecystectomy. The liver, bile ducts, spleen, pancreas, pancreatic duct and adrenal gla nds are unremarkable. There is multifocal right renal scarring likely due to chronic pyelonephritis. Mild variation of inte nsity of left and right contrast enhancement is noted; recommend clinical correlation for possible ac kaw pyelonephritis. No perinephric stranding or fluid collection or urinary tract calculus or hydrour eteronephrosis is evident. The urinary bladder is unremarkable. Retroverted uterus. There is a small amount of free fluid in the posterior cul-de-sac which may be ph ysiologic. Probable postoperative change from appendectomy. No bowel obstruction, bowel wall thickening or intra peritoneal free air is detected. Normal caliber of the abdominal aorta. No intraperitoneal or retroperitoneal or pelvic mass lesion or adenopathy is detected. Small fat-containing umbilical hernia. Moderately severe degenerative disc disease at L5-S1. No suspicious osteolytic or osteoblastic lesion s are noted. IMPRESSION: Right chronic pyelonephritis Mild variable intensity of contrast enhancement of the kidney; recommend clinical correlation for pos sible acute pyelonephritis Probable appendectomy Status post cholecystectomy Retroverted uterus Reviewed, dictated and finalized at [facility]. Reviewed, dictated and finalized at [facility]. IMPRESSION: Right chronic pyelonephritis Mild variable intensity of contrast enhancement of the kidney; recommend clinic al correlation for possible acute pyelonephritis Probable appendectomy Status post cholecystectomy Retroverted uterus
[2022-10-12 05:30] VITALS: BP 146/78; PULSE 88; RESP 20; TEMP 36.6; O2SAT 99
--- NOTE | 2022-10-12 05:34 | ED.NAVMDI ---
HPI - Nausea/Vomiting/Diarrhea General Chief complaint: Nausea/Vomiting/Diarrhea <Edwin Smith MD - Last Filed: 10/12/22 06:02> Stated complaint: Nausea/Vomiting <Edwin Smith MD - Last Filed: 10/12/22 06:02> Time Seen by Provider: 10/12/22 05:33 <Edwin Smith MD - Last Filed: 10/12/22 06:02> Source: patient <Edwin Smith MD - Last Filed: 10/12/22 06:02> Mode of arrival: ambulatory <Edwin Smith MD - Last Filed: 10/12/22 06:02> Limitations: no limitations <Edwin Smith MD - Last Filed: 10/12/22 06:02> History of Present Illness HPI Narrative: 37-year-old female with a history of asthma status post cholecystectomy presents to the ER with a 1 day history of -- multiple episodes of vomiting. Her vomitus is bile stained. -- Multiple episodes of watery diarrhea . No fever or chills. No abdominal pain <Edwin Smith MD - Last Filed: 10/12/22 06:02> MD elicited complaint: nausea, vomiting and diarrhea <Edwin Smith MD - Last Filed: 10/12/22 06:02> Onset (ago): day(s) ( symptoms started yesterday.) <Edwin Smith MD - Last Filed: 10/12/22 06:02> Description of vomiting: watery <Edwin Smith MD - Last Filed: 10/12/22 06:02> Description of diarrhea: watery <Edwin Smith MD - Last Filed: 10/12/22 06:02> Associated nausea: Yes <Edwin Smith MD - Last Filed: 10/12/22 06:02> Associated abdominal pain: No <Edwin Simth MD - Last Filed: 10/12/22 06:02> Location of pain: none <Edwin Smith MD - Last Filed: 10/12/22 06:02> Exacerbating factors: none <Edwin Smith MD - Last Filed: 10/12/22 06:02> Relieving factors: none <Edwin Smith MD - Last Filed: 10/12/22 06:02> Related Data Home medications: Home Medications Medication Instructions Recorded Confirmed albuterol sulfate 90 mcg/actuation 2 puff inhalation QID PRN Wheezing 11/21/19 10/12/22 aerosol inhaler meloxicam 15 mg tablet 15 mg PO DAILY 02/01/21 10/12/22 <Edwin Smith MD - Last Filed: 10/12/22 06:02> Allergies/Adverse reactions: Allergies Allergy/AdvReac Type Severity Reaction Status Date / Time amoxicillin [From Augmentin] AdvReac Vomiting Verified 02/19/21 18:22 clavulanic acid AdvReac Vomiting Verified 02/19/21 18:22 [From Augmentin] <Edwin Smith MD - Last Filed: 10/12/22 06:02> Review of Systems Review of Systems: All systems reviewed & are unremarkable except as noted in HPI and below <Edwin Smith MD - Last Filed: 10/12/22 06:02> Constitutional: Constitutional: Reports as per HPI and Reports no additional constitutional complaints <Edwin Smith MD - Last Filed: 10/12/22 06:02> Eyes: Eyes: Reports as per HPI and Reports no additional eye complaints <Edwin Smith MD - Last Filed: 10/12/22 06:02> ENT: Reports system reviewed and no additional complaints, except as documented and Reports as per HPI <Edwin Smith MD - Last Filed: 10/12/22 06:02> Cardiovascular: Cardiovascular: Reports as per HPI and Reports no additional cardiovascular complaints <Edwin Smith MD - Last Filed: 10/12/22 06:02> Respiratory: Respiratory: Reports as per HPI and Reports no additional respiratory complaints <Edwin Smith MD - Last Filed: 10/12/22 06:02> Gastrointestinal: Gastrointestinal: Reports as per HPI, Reports no additional gastrointestinal complaints, Reports diarrhea, Reports loose stools and Reports vomiting <Edwin Smith MD - Last Filed: 10/12/22 06:02> Genitourinary: Genitourinary: Reports no additional female genitourinary complaints <Edwin Smith MD - Last Filed: 10/12/22 06:02> Musculoskeletal: Musculoskeletal: Reports no additional musculoskeletal complaints and Reports as per HPI <Edwin Smith MD - Last Filed: 10/12/22 06:02> Integumentary/Breasts: Skin/Breast: Reports system r
[2022-10-12] MEDS: PROCHLORPERAZINE EDISYLATE 10 MG/2 ML VIAL IV PUSH (05:51)
[2022-10-12] MEDS: LACTATED RINGERS 1,000 ML 999 ML IV CONT (05:52)
[2022-10-12 05:54] LABS: Appearance Urine Clear (Clear); Bilirubin Urine 1+ (Negative); Blood Urine 2+ (Negative); Color Urine Yellow (Yellow); Glucose Urine UA 1+ (Negative); Ketones Urine 1+ (Negative); Leukocyte Esterase Ur Negative LEU/UL (Negative); Nitrate Urine Negative (Negative); Protein Urine 1+ (Negative); Specific Grav Ur >= 1.030 (1.010-1.020)
[2022-10-12 06:01] LABS: Hematocrit 40.7 % (35.0-49.0); Hemoglobin 13.9 g/dL (12.0-15.0); Mean Corpuscular HGB Conc 34.2 g/dL (32.0-36.0); Mean Corpuscular Hemoglobin 29.6 pg (27.0-31.0); Mean Corpuscular Volume 86.8 fL (78.0-102.0); Mean Platelet Volume 10.1 fl (9.2-11.8); Platelet Count Result 383 K/mm3 (150-420); Red Blood Count 4.69 M/mm3 (4.20-5.40); Red Cell Distribution Width 13.8 % (11.6-14.4)
[2022-10-12 06:04] LABS: Add Urine Microscopic? YES
[2022-10-12 06:05] LABS: Amorphous Sediment Urine Moderate; Bacteria Urine 4+ /hpf; Pregnancy On Board Control Positive; Prothrombin Time 10.8 Seconds (9.50-12.10); Squamous Epithelial Cell Urine Moderate /hpf (Few); Urine Pregnancy Test Negative; WBC Urine 0-3 /hpf (0-3)
[2022-10-12 06:12] LABS: Alanine Aminotransferase 36 U/L (14-59); Albumin Level 4.1 g/dL (3.4-5.0); Alkaline Phosphatase 88 U/L (46-116); Anion Gap 14 mmol/L (8-16); Aspartate Amino Transferase 21 U/L (15-37); Bilirubin,Total 0.5 mg/dL (0.00-1.00); Blood Urea Nitrogen 18 mg/dL (7-18); Calcium 9.4 mg/dL (8.5-10.1); Carbon Dioxide 23 mmol/L (21-32); Chloride 102 mmol/L (98-108); Estimated CRCL calculation 77 ml/min; Estimated Glomerular Filt Rate > 60; Glucose 222 mg/dL (70-99); Lipase 12 U/L (16-77); Osmolality Calculated 296 mOsm/kg (285-295); Potassium 3.4 mmol/L (3.5-5.1); Sodium 139 mmol/L (136-145); Total Protein 8.1 g/dL (6.4-8.2)
[2022-10-12 06:13] LABS: Total Cells Counted 100
[2022-10-12 06:14] LABS: Band Neutrophils Percent 0 % (0-6); Lymphocytes Percent Manual 1 % (18-44); Monocytes Percent Manual 9 % (3-9); Neutrophils Percent Manual 80 % (46-73); Platelet Estimate Adequate (Adequate); Schistocytes None Seen (NORMAL)
[2022-10-12 06:15] LABS: Lactic Acid Reflex 2.9 mmol/L (0.4-2.0)
[2022-10-12 06:30] VITALS: BP 139/88; PULSE 89; RESP 20; TEMP 37.2; O2SAT 99
[2022-10-12] MEDS: levoFLOXacin 750 MG/D5W 150 ML 750 MG/150 ML BAG 100 MG IVPB (06:44)
[2022-10-12] MEDS: SODIUM CHLORIDE 0.9% IV 1,000 ML 999 ML IV CONT (07:25)
[2022-10-12] MEDS: ONDANSETRON INJ 4 MG/2 ML VIAL IV PUSH ×2 (07:41→09:20)
[2022-10-12 08:49] LABS: Reflex Lactic Acid Yes or No Add Lactic
[2022-10-12 09:05] VITALS: BP 127/74; PULSE 105; RESP 18; TEMP 37.2; O2SAT 99
[2022-10-12] MEDS: SODIUM CHLORIDE 0.9% IV 500 ML 999 ML IV CONT (09:20)
[2022-10-12 09:24] LABS: Lactic Acid 2.6 mmol/L (0.4-2.0)
--- NOTE | 2022-10-12 09:30 | PC.NURSE ---
0900 pt continues to complain of nausea meds given nurse to nurse report given to Blank fisher pt to go to room 204
[2022-10-12 09:38] VITALS: PULSE 85; RESP 16; O2SAT 97
--- NOTE | 2022-10-12 09:56 | PM.IMHP ---
H&P: HPI History of Present Illness Date/Time: 10/12/22 09:56 Chief Complaint: Nausea, vomiting, diarrhea, abdominal pain, elevated WBC count, fever, chills Narrative: This is a 37-year-old female patient with a history of asthma, pyelonephritis and nausea and vomiting who is admitted to the hospital due to complaints of fever, chills, nausea, vomiting, diarrhea and abdominal pain That started around 17:15 yesterday evening. Patient reports that the symptoms have been continuous since starting, no fever upon ER workup. Workup in the emergency department was concerning for acute on chronic pyelonephritis though urine was a contaminated specimen does not have any leukocyte esterase or significant number of white cells. On my evaluation patient tells me that 2 weeks ago she had tick bites with target void lesions x2 on her back and right hip. Rash is not present at this time. Additional associated symptoms include muscle pain in her neck without meningismus. She was prescribed doxycycline in the outpatient setting only took 4 doses because it caused nausea and vomiting after taking the medication. She is also allergic to Augmentin for the same reason nausea and vomiting. Review of Systems Review of Systems: All systems reviewed & are unremarkable except as noted in HPI and below PMFSH Past Medical History Medical History (Updated 10/12/22 @ 10:21 by Salinas Marquis APRN) Asthma Biliary colic Cholecystitis COVID-19 Shoulder pain Shoulder pain, right Vomiting Surgical History Surgical History (Updated 10/12/22 @ 10:17 by Salinas Marquis APRN) Hx laparoscopic cholecystectomy Family History Family History Mother Family history of diabetes mellitus in first degree relative Father Family history of malignant neoplasm of urinary bladder Family history of heart disease in male family member before age 55 Social History Social History Smoking status: Never smoker Second hand tobacco smoke exposure: No Alcohol intake: never Substance use: current Substance use type: marijuana Last use: 01/31/21 Living arrangements: with family Gender identity (if verbalized by the patient): Female Sexual Orientation (if Verbalized by the Patient): Straight or Heterosexual Spiritual care concerns: No Meds Home Medications and Allergies Home Medications Medication Instructions Recorded Confirmed Type albuterol sulfate 90 mcg/actuation 2 puff inhalation QID PRN Wheezing 11/21/19 10/12/22 History aerosol inhaler hydrocodone 5 mg-acetaminophen 325 1 tablet PO Q6H PRN pain #20 tabs 02/01/21 10/12/22 Rx mg tablet meloxicam 15 mg tablet 15 mg PO DAILY 02/01/21 10/12/22 History doxycycline monohydrate 100 mg 100 mg PO BID 10 days #20 tabs 10/01/22 10/12/22 Rx tablet triamcinolone acetonide 0.1 % 1 applic topical BID 7 days #80 10/01/22 10/12/22 Rx topical cream grams Allergies Allergy/AdvReac Type Severity Reaction Status Date / Time amoxicillin [From Augmentin] AdvReac Vomiting Verified 10/12/22 09:28 clavulanic acid AdvReac Vomiting Verified 10/12/22 09:28 [From Augmentin] Vital Signs Vital Signs - 24 hr 10/12/22 05:30 10/12/22 06:30 10/12/22 09:05 Temperature 36.6 C 37.2 C 37.2 C Pulse Rate 88 89 105 H Respiratory Rate 20 20 18 Blood Pressure 146/78 H 139/88 127/74 Pulse Oximetry 99 99 99 Oxygen Delivery Room Air Room Air Room Air Exam Narrative: GENERAL: Somewhat ill appearing, alert and oriented. Patient appears in mild distress with nausea and abdominal pain. She is pleasant and conversant in full sentences. HEENT: Pupils are equally round and briskly reactive to light. Extraocular muscles are intact. Oral mucous membranes are moist without lesions. NECK: The patient has no noted JVD. No adenopathy is appreciated. CHEST/LUNGS: Lungs are clear b
[2022-10-12] MEDS: LACTATED RINGERS 1,000 ML 100 ML IV CONT ×2 (10:12→19:57)
[2022-10-12] MEDS: HALOPERIDOL LACTATE 5 MG/ML VIAL IV PUSH (10:29)
[2022-10-12] MEDS: FAMOTIDINE 20 MG/ISO 50 ML 20 MG/50 ML BAG 100 MG IVPB ×2 (10:34→22:09)
[2022-10-12] MEDS: cefTRIAXone 2 GM/NS 100 ML 2 GM/100 ML BAG IVPB (11:08)
[2022-10-12] MEDS: MORPHINE SULFATE (*CRX) 2 MG/ML INJ IV PUSH ×2 (11:58→19:57)
[2022-10-12 12:37] VITALS: BMI 31.0
[2022-10-12 16:30] VITALS: BP 110/71; PULSE 99; RESP 16; TEMP 37.1; O2SAT 98
[2022-10-12] MEDS: DOXYCYCLINE IV 100 MG in DEXTROSE 5% 100 ML IVPB (20:54)
[2022-10-12] MEDS: PANTOPRAZOLE SODIUM IV 40 MG VIAL IV PUSH (20:54)
--- NOTE | 2022-10-12 22:43 | PC.NURSE ---
pt c/o burning and pain at iv site/r bicep, iv leaking and removed intact
--- NOTE | 2022-10-12 23:00 | PC.NURSE ---
pt asks if meds can be changed to po so she does not have to get another iv, financial analysis consultant karis contacted and wants all iv meds continued, will attempt iv placement, n/v subsided at this time
[2022-10-13] VITALS: BP 121/64; PULSE 99; RESP 16; TEMP 36.7; O2SAT 98
[2022-10-13] MEDS: HYDROcodone/acetaminophen (*CRX) 5-325 MG TABLET 1 TAB PO ×3 (05:29→22:00)
[2022-10-13 07:26] LABS: Hematocrit 33.4 % (35.0-49.0); Mean Corpuscular HGB Conc 32.9 g/dL (32.0-36.0); Mean Corpuscular Hemoglobin 28.9 pg (27.0-31.0); Mean Corpuscular Volume 87.7 fL (78.0-102.0); Mean Platelet Volume 10.1 fl (9.2-11.8); Platelet Count Result 278 K/mm3 (150-420); Red Blood Count 3.81 M/mm3 (4.20-5.40)
[2022-10-13 07:37] LABS: Alanine Aminotransferase 25 U/L (14-59); Alkaline Phosphatase 61 U/L (46-116); Anion Gap 8 mmol/L (8-16); Aspartate Amino Transferase 13 U/L (15-37); Bilirubin,Total 0.4 mg/dL (0.00-1.00); Blood Urea Nitrogen 5 mg/dL (7-18); Calcium 8.3 mg/dL (8.5-10.1); Carbon Dioxide 27 mmol/L (21-32); Chloride 107 mmol/L (98-108); Estimated CRCL calculation 100 ml/min; Estimated Glomerular Filt Rate > 60; Glucose 95 mg/dL (70-99); Osmolality Calculated 291 mOsm/kg (285-295); Potassium 3.2 mmol/L (3.5-5.1); Sodium 142 mmol/L (136-145); Total Protein 6.1 g/dL (6.4-8.2)
[2022-10-13 07:43] LABS: Lactic Acid Reflex 0.7 mmol/L (0.4-2.0)
[2022-10-13 08:00] VITALS: BP 120/71; PULSE 83; RESP 14; TEMP 36.9; O2SAT 98
[2022-10-13] MEDS: PANTOPRAZOLE SODIUM IV 40 MG VIAL IV PUSH ×2 (09:40→22:00)
[2022-10-13] MEDS: DOXYCYCLINE IV 100 MG in DEXTROSE 5% 100 ML IVPB (09:40)
[2022-10-13] MEDS: MELOXICAM 7.5 MG TABLET 15 MG PO (11:06)
[2022-10-13] MEDS: FAMOTIDINE 20 MG/ISO 50 ML 20 MG/50 ML BAG 100 MG IVPB ×2 (11:07→22:00)
[2022-10-13] MEDS: POTASSIUM CHLORIDE 20 MEQ ER TABLET PO (11:54)
--- NOTE | 2022-10-13 12:59 | PM.IMPN ---
Progress Note: A&P Assessment and Plan (1) Lyme disease, unspecified: Code(s): A69.20 - Lyme disease, unspecified Status: Acute (2) Intractable vomiting: Code(s): R11.10 - Vomiting, unspecified Status: Acute (3) Pyelonephritis: Code(s): N12 - Tubulo-interstitial nephritis, not specified as acute or chronic Status: Acute Plan A/P 1. Possible Lyme disease-patient saw her primary care proximally 2 weeks ago and was given doxycycline and then began having nausea vomiting on Friday. Patient attributed to the doxycycline, but she did have multiple other reasons that could cause nausea vomiting. At this point since patient is 2 weeks post rash and there is no longer any rash will have IgG and IgM antibodies drawn to see if either come back positive. These are send out test it may take a few days. Will change patient to oral doxycycline to began tonight and as long as patient is able to tolerate oral intake with the doxycycline and have no nausea vomiting patient can be discharged in the a.m. to follow-up primary care. If patient were to have nausea vomiting cefuroxime it can be used as a second-line medication and patient has tolerated cephalosporins. 2. Intractable nausea and vomiting-after quite a lengthy review with patient patient did have a migraine headache when she initially had the nausea and vomiting. Patient also had a CT scan that showed possible chronic versus acute pyelonephritis which could cause nausea and vomiting. Patient states when she gets urinary tract infections she often does have nausea and vomiting. Patient states that she did smoke marijuana on Friday, but she has never had intractable nausea and vomiting from marijuana. Patient states in fact she typically smokes marijuana if she is having nausea vomiting to help calm her stomach. Patient does have anti-emetics ordered as needed. Patient is tolerating a regular diet at this time. Will discontinue IV fluids and continue to encourage oral intake. 3. Possible pyelonephritis-patient is on ceftriaxone daily. CT scan shows mild variable intensity of contrast enhancement of the kidney recommend clinical correlation for possible acute pyelonephritis. It was also noted the patient had right chronic pyelonephritis. Patient did have a significant leukocytosis without bands, and elevated lactic acid that has normalized, and a urinalysis that appears to be contaminated. At this point time will continue with ceftriaxone and sure that urinalysis is sent for culture and sensitivity. VTE: Patient will be placed on subcutaneous Lovenox daily for from pharmacological VTE prophylaxis Dispo: Patient was placed observation status for expected length of stay less than 23 hours for management, will plan to re-evaluate tomorrow for improvement. Code Status: Full code Subjective Date/time seen: 10/13/22 1230 Interval history: Patient sitting up in bed and states she is feeling significantly improved today. Patient states she is tolerating oral intake and has had no nausea or vomiting. Patient states that there were multiple reasons she could have had vomiting, but she did attributed to the doxycycline that she received from her primary care provider. Review of Systems Review of Systems: A 12 point review of systems was completed with patient all pertinent positive and negative per HPI the remainder are unremarkable. Exam Narrative: Constitutional: Patient is well-nourished in no acute distress. Patient is alert and oriented x3 HEENT: Moist mucous membranes. No scleral icterus. No lymphadenopathy. Neck: No carotid bruits noted no JVD noted Lungs: Lung sounds are clear to auscultation bilaterally. No accessory muscle use. No rhonchi, rales, or wheezes noted. Cardiovascular: Apical pulse is regular rate and rhythm. S1-S2 noted, no S3 or S4 noted. No gallops, murmurs, or rubs noted. Abdomen: Soft, round, and nontender. No palpa
[2022-10-13 16:35] VITALS: BP 119/81; PULSE 77; RESP 16; TEMP 36.3; O2SAT 99
[2022-10-13 20:00] VITALS: PULSE 77; RESP 16; O2SAT 99
[2022-10-13] MEDS: DOXYCYCLINE HYCLATE 100 MG TABLET PO (22:00)
[2022-10-13] MEDS: ONDANSETRON INJ 4 MG/2 ML VIAL IV PUSH (22:26)
[2022-10-14] VITALS: BP 119/75; PULSE 77; RESP 16; TEMP 36.7; O2SAT 98
[2022-10-14 05:34] LABS: Hematocrit 34.9 % (35.0-49.0); Mean Corpuscular HGB Conc 34.4 g/dL (32.0-36.0); Mean Corpuscular Hemoglobin 30.1 pg (27.0-31.0); Mean Corpuscular Volume 87.5 fL (78.0-102.0); Mean Platelet Volume 10.2 fl (9.2-11.8); Platelet Count Result 289 K/mm3 (150-420); Red Blood Count 3.99 M/mm3 (4.20-5.40); Red Cell Distribution Width 13.8 % (11.6-14.4); White Blood Count 7.8 K/mm3 (4.8-10.8)
[2022-10-14 05:50] LABS: Alanine Aminotransferase 30 U/L (14-59); Albumin Level 3.1 g/dL (3.4-5.0); Alkaline Phosphatase 64 U/L (46-116); Anion Gap 8 mmol/L (8-16); Aspartate Amino Transferase 15 U/L (15-37); Bilirubin,Total 0.4 mg/dL (0.00-1.00); Blood Urea Nitrogen 8 mg/dL (7-18); Calcium 8.4 mg/dL (8.5-10.1); Carbon Dioxide 27 mmol/L (21-32); Chloride 106 mmol/L (98-108); Estimated CRCL calculation 103 ml/min; Estimated Glomerular Filt Rate > 60; Glucose 94 mg/dL (70-99); Osmolality Calculated 290 mOsm/kg (285-295); Potassium 3.5 mmol/L (3.5-5.1); Sodium 141 mmol/L (136-145); Total Protein 6.4 g/dL (6.4-8.2)
[2022-10-14] MEDS: HYDROcodone/acetaminophen (*CRX) 5-325 MG TABLET 1 TAB PO (06:16)
[2022-10-14 08:00] VITALS: BP 152/87; PULSE 71; RESP 14; TEMP 36.4; O2SAT 97
--- NOTE | 2022-10-14 08:44 | PC.NURSE ---
Pt admited from ED @ 0940 on 10/12/22. Pt alert and oriented x 3. Actively vomiting at this time. Pt oriented to call system , TV, bed alarms and visiting hours.
[2022-10-14] MEDS: PANTOPRAZOLE SODIUM IV 40 MG VIAL IV PUSH (09:07)
[2022-10-14] MEDS: DOXYCYCLINE HYCLATE 100 MG TABLET PO (09:07)
[2022-10-14] MEDS: MELOXICAM 7.5 MG TABLET 15 MG PO (09:08)
[2022-10-14] MEDS: TRIAMCINOLONE ACET 0.1% CREAM 15 GM TUBE 1 APPLIC TOPICAL (09:12)
--- NOTE | 2022-10-14 11:09 | PM.DS ---
DS: Admitting Diagnosis Discharge Date 10/14/2022 Admitting Diagnosis Intractable nausea and vomiting DS: Discharge Diagnosis Discharge Diagnosis Plan A/P 1. Possible Lyme disease-patient saw her primary care proximally 2 weeks ago and was given doxycycline and then began having nausea vomiting on Friday.? Patient attributed to the doxycycline, but she did have multiple other reasons that could cause nausea vomiting.? At this point patient is 2 weeks post tick bite and rash will have IgG and IgM antibodies drawn to see if either come back positive.? These are send out test it may take a few days.? Patient did take oral doxycycline last night states she did have mild nausea and was given Zofran and tolerated the medication without any further difficulty. At this point time patient is to continue with her doxycycline and take Zofran 30 minutes before and ensure that she has a full stomach. Patient does have a follow-up with her primary care provider artery scheduled for October 16 and she can discuss any further regimens at that point. 2. Intractable nausea and vomiting-after quite a lengthy review with patient patient did have multiple reasons that she could have had nausea and vomiting. Patient has done well with oral intake and has had no further nausea vomiting since hospitalization. Patient will be sent home with a prescription for Zofran for any nausea. 3. Possible pyelonephritis-patient did receive 3 days of ceftriaxone. Patient's blood culture showed no growth today and a urine culture is pending. Patient's urinalysis did not appear to be infected, but because of CT scan interpretation a urine culture was sent. At this point time after much discussion will place patient on 3 more days of antibiotics and patient will have followed up with her primary care and urine culture should be back at that point time. Will place patient on Cipro 500 mg p.o. b.i.d. for DS: Summary Hospital Course Reason for hospitalization: Intractable nausea vomiting Hospital Course: Ms. Mohamud is a 37-year-old female who presented emergency room with complaints of intractable nausea and vomiting. Patient had been seen by her primary care provider approximately 2 weeks ago for a rash that was noted on her hip and her back. Patient states just prior to the rash she had noted a very small tick and removed a tick herself. Patient states that her primary care then placed her on doxycycline. On October 11, patient states she began having nausea and vomiting and treated to the doxycycline she had been taking. Patient states that she also had a migraine that day and typically if her migraine and is bad enough she will vomit. Patient did come the hospital for the intractable nausea vomiting and a CT scan was performed that showed chronic pyelonephritis with a possible acute possibility. Patient was then placed on IV doxycycline for the possible Lyme disease and she was placed on ceftriaxone for the possible pyelonephritis. During hospitalization patient was hydrated with IV fluids and has done extremely well. Patient is keeping down oral fluids and food without any difficulty. Patient was transitioned to oral doxycycline last evening and did have some nausea after receiving her does. Patient did receive Zofran IV and she states her nausea significantly improved. At this point time until patient's Lyme antibodies have returned patient will need to stay on doxycycline. Patient will be sent home with a prescription for Zofran and was discussed with her that she will need to take the Zofran prior to taking her doxycycline and ensure that she takes her antibiotics on a full stomach. Patient verbalized understanding. Patient is 2 weeks out after tick bite and IgG as well as IgM antibodies have been drawn and it is possible they could be positive at this time. These are send out laboratories so will be days before the results returned. Patient's urine culture is also pend
--- NOTE | 2022-10-14 15:12 | PC.NURSE ---
Pt discharged to home with family. A/O x3. Denies N/V. VSS. Discharge instructions givn to pt regarding follow up appointment on 10/16 with PCP. Medications, side effects, dosages, times and purpose. Both pt and family member verbilize understanding.
--- NOTE | 2022-10-15 13:20 | PC.NURSE ---
Pt states she received and understood her discharge instructions. Pt states her care was amazing, thank you all .
[2022-10-17 15:40] LABS: Lyme Disease Ab (IgM), Blot Negative (Negative); Lyme Disease Ab(IgG), Blot Negative (Negative)
== END 2022-10-14 15:05 | disposition home or self-care (01) ==
LOC: CHSED 09:00 → CHS2ND 09:22
PROVIDERS: Internal Medicine Critical Care Medicine; Nurse Practitioner; Admitting Provider Internal Medicine; Emergency Provider Emergency Medicine; Visit Provider Internal Medicine
DX: R11.2 Nausea with vomiting, unspecified (principal); N11.9 Chronic tubulo-interstitial nephritis, unspecified; E87.20 Acidosis, unspecified; T63.481D Toxic effect of venom of other arthropod, accidental (unintentional), subsequent encounter; J45.909 Unspecified asthma, uncomplicated
CPT/HCPCS: 36415; 74177; 80053; 81001; 81025; 83605; 83690; 84484; 85025; 85027; 85610; 86617; 87040; 87077; 87086; 87088; 87186; 96361; 96365; 96366; 96367; 96375; 96376; 99285; A9270; C9113; G0378; G0379; J0696; J0780; J1630; J1956; J2270; J2405; J7030; J7040; J7120; Q9967

== ENCOUNTER 2023-05-28 14:15 | Emergency (ER) | payer OTHER, SELFPAY ==
[2023-05-28 14:24] VITALS: BP 137/85; PULSE 103; RESP 16; TEMP 36.8; O2SAT 100
--- NOTE | 2023-05-28 15:13 | ED.URI ---
HPI - URI/Sore Throat General Chief Complaint: Upper Respiratory Infection Stated Complaint: fever/coughing and hurting Time Seen by Provider: 05/28/23 15:13 Source: patient, RN notes reviewed and old records reviewed Mode of arrival: ambulatory Limitations: no limitations History of Present Illness HPI Narrative: 38 Year old female who presents to [facility] with complaints of cough, headache since yesterday and feels some dyspnea with exertion. Patient reports history of asthma and pneumonia in the past. Patient reports that she has not had Covid immunizations or flu shot.Patient reports that she has felt feverish and has had cold sweat this morning at 0400 which woke her up. Patient reports that she has taken Sudafed for her symptoms MD elicited complaint: fever, cough, rhinorrhea, nasal congestion and other (headache) Pertinent past history: asthma Onset (ago): day(s) (since yesterday) Severity: moderate Able to tolerate fluids by mouth: Yes Treatments prior to arrival: other (Sudafed) Related Data Home Medications Medication Instructions Recorded Confirmed albuterol sulfate 90 mcg/actuation 2 puff inhalation QID PRN Wheezing 11/21/19 05/28/23 aerosol inhaler meloxicam 15 mg tablet 15 mg PO DAILY 02/01/21 10/12/22 Allergies Allergy/AdvReac Type Severity Reaction Status Date / Time amoxicillin [From Augmentin] AdvReac Vomiting Verified 10/12/22 09:28 clavulanic acid AdvReac Vomiting Verified 10/12/22 09:28 [From Augmentin] Review of Systems Review of Systems: CONSTITUTIONAL: Reports malaise, chills, sweats, or fever. EYES: Denies visual changes, redness, or discharge. ENT: Reports rhinorrhea, congestion, sinus pain, no otalgia and sore throat. CARDIOVASCULAR: Denies chest pain, palpitations, or edema. RESPIRATORY: Reports cough.?Reports dyspnea with exertion GASTROINTESTINAL: Denies abdominal pain, nausea, vomiting, diarrhea SKIN: Denies rash or itching. MUSCULOSKELETAL: Denies myalgia. NEUROLOGIC: Reports headache. All systems reviewed & are unremarkable except as noted in HPI and below PMFSH Past Medical History Medical History (Updated 05/29/23 @ 14:44 by Deidra Neumann NP) Asthma Biliary colic Cholecystitis COVID-19 Shoulder pain Shoulder pain, right Vomiting Surgical History Surgical History (Updated 05/29/23 @ 14:36 by Deidra Neumann NP) H/O neck surgery History of surgery on lower extremity dog attack History of tubal ligation Hx laparoscopic cholecystectomy Hx of appendectomy Family History Family History Mother Family history of diabetes mellitus in first degree relative Father Family history of malignant neoplasm of urinary bladder Family history of heart disease in male family member before age 55 Social History Social History Smoking status: Never smoker Second hand tobacco smoke exposure: No Alcohol intake: never Substance use: current Substance use type: marijuana Last use: 01/31/21 Lack of Transportation: No Lack of Food: Never True Current Housing: I Have Housing Concerned About Future Housing: No Difficulty Paying Gas/Electric Bills: No Difficulty Paying for Meds: No Currently Unemployed: No Education: High School Diploma/GED Difficulty w/ Childcare or Family Care: No Living arrangements: with family Gender identity (if verbalized by the patient): Female Sexual Orientation (if Verbalized by the Patient): Straight or Heterosexual Spiritual care concerns: No Comments At time of signature, agree with nursing past medical, surgical, social and family history. There is no relevant family history pertinent to the presenting complaint Exam Narrative: GENERAL: ill-appearing, well-nourished, and in no acute distress. HEAD: Normocephalic EYES: PERRLA, conjunctivae clear ENT: Nares
== END 2023-05-28 15:43 | disposition home or self-care (01) ==
PROVIDERS: Emergency Provider Registered Nurse; PCP Internal Medicine
DX: J06.9 Acute upper respiratory infection, unspecified (principal); R05.1 Acute cough; Z20.822 Contact with and (suspected) exposure to COVID-19; J45.909 Unspecified asthma, uncomplicated; Z86.16 Personal history of COVID-19
CPT/HCPCS: 87426; 87804; 99213; G0463

== ENCOUNTER 2023-06-10 12:31 | Emergency (ER) | payer OTHER, SELFPAY ==
[2023-06-10 12:49] VITALS: BP 140/76; PULSE 92; RESP 20; TEMP 36.7; O2SAT 100
--- NOTE | 2023-06-10 13:11 | ED.URI ---
HPI - URI/Sore Throat General Chief Complaint: Upper Respiratory Infection Stated Complaint: sore throat Time Seen by Provider: 06/10/23 13:42 Source: patient, RN notes reviewed and old records reviewed Mode of arrival: ambulatory Limitations: no limitations History of Present Illness HPI Narrative: 38-year-old female to [facility] for complaint sore throat and bilateral ear discomfort for 3 days. patient endorses allergy to Augmentin. Patient denies pertinent medical history. Patient able to control oral secretions. Patient able to tolerate fluids by mouth. On exam no acute distress. Respirations even and nonlabored Related Data Home Medications Medication Instructions Recorded Confirmed hydrocodone 5 mg-acetaminophen 325 tablet 06/10/23 mg tablet Allergies Allergy/AdvReac Type Severity Reaction Status Date / Time amoxicillin [From Augmentin] AdvReac Vomiting Verified 06/10/23 12:46 clavulanic acid AdvReac Vomiting Verified 06/10/23 12:46 [From Augmentin] Review of Systems Review of Systems: All systems reviewed & are unremarkable except as noted in HPI and below Constitutional: Constitutional: Reports as per HPI, Denies body ache(s), Denies chills and Denies fever(s) Eyes: Eyes: Reports no additional eye complaints ENT: Reports as per HPI, Reports otalgia ( bilateral) and Reports sore throat Cardiovascular: Cardiovascular: Reports no additional cardiovascular complaints, Denies chest pain and Denies dyspnea Respiratory: Respiratory: Reports no additional respiratory complaints, Denies cough and Denies dyspnea Musculoskeletal: Musculoskeletal: Reports no additional musculoskeletal complaints Neurologic: Reports system reviewed and no additional complaints, except as documented Psychiatric: Psychiatric: Reports no additional psychiatric complaints PMFSH Past Medical History Medical History Asthma Biliary colic Cholecystitis COVID-19 Shoulder pain Shoulder pain, right Vomiting Surgical History Surgical History H/O neck surgery History of surgery on lower extremity dog attack History of tubal ligation Hx laparoscopic cholecystectomy Hx of appendectomy Family History Family History Mother Family history of diabetes mellitus in first degree relative Father Family history of malignant neoplasm of urinary bladder Family history of heart disease in male family member before age 55 Social History Social History Smoking status: Never smoker Second hand tobacco smoke exposure: No Alcohol intake: never Substance use: current Substance use type: marijuana Last use: 01/31/21 Lack of Transportation: No Lack of Food: Never True Current Housing: I Have Housing Concerned About Future Housing: No Difficulty Paying Gas/Electric Bills: No Difficulty Paying for Meds: No Currently Unemployed: No Education: High School Diploma/GED Difficulty w/ Childcare or Family Care: No Living arrangements: with family Gender identity (if verbalized by the patient): Female Sexual Orientation (if Verbalized by the Patient): Straight or Heterosexual Spiritual care concerns: No Comments At the time of my signature, I reviewed and agree with the nursing past medical, surgical, social, and family history. There is no relevant family history pertinent to the patient complaint. Exam Const: General: cooperative, healthy appearing, comfortable, no acute distress, alert and well nourished Nutritional Appearance: well nourished Orientation/consciousness: patient oriented x3 Limitations: no limitations HENMT: Head: normal to inspection Ears: external ears normal and TM abnormal with fluid behind the TM bilateral and diffuse Face/Nos
== END 2023-06-10 14:00 | disposition home or self-care (01) ==
PROVIDERS: Emergency Provider Nurse Practitioner Family; PCP Internal Medicine
DX: J02.0 Streptococcal pharyngitis (principal); Z20.822 Contact with and (suspected) exposure to COVID-19; J45.909 Unspecified asthma, uncomplicated; Z86.16 Personal history of COVID-19
CPT/HCPCS: 87426; 87804; 87880; 99213; G0463

== ENCOUNTER 2024-06-21 08:10 | Emergency (ER) | payer OTHER, SELFPAY ==
--- OUTSIDE RECORDS SUMMARY | 2024-06-21 08:21 | XMS_ITS | Encounter Summary ---
Author Organization [facility] Address [address] [place] [address] Phone Care Team Providers Care Boiler Tender Name Role Phone Nicanor Syed MD Unavailable [phone] Vignesh Maharaj MD Primary Care Provider [phone] Misa Garcia MD Unavailable Reason for Visit * Reason Onset Date Comments Medication Refill 11/16/2019 Encounter Details Date Type Department Care Team (Late st Contact Info) Description 11/16/2019 Refill [facility] [address] [place] [address] Vignesh Maharaj MD [address] [address] Medication Refill Social History Tobacco Use Types Packs/Day Years Used Date Smoking Tobacco: Never Smokeless Tobacco: Never Alcohol Use Standard Drinks/Week Comments Not Currently 0 (1 standard drink = 0.6 oz pur e alcohol) Sexually Active Control Partners Comments Yes Surgical Male Comments No Sex and Gender Information Value Date Recorded Sex Assigned at Female 05/21/2023 2:05 PM PRODUCT DISTRIBUTION SPECIALIST Legal Sex Female 3:16 AM PRODUCT DISTRIBUTION SPECIALIST Gender Identity Female 05/21/2023 2:05 PM PRODUCT DISTRIBUTION SPECIALIST Sexual Orientation Not on file 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 [facility] 30 or 90 day supply? 60 documented in this encounter Plan of Treatment Upcoming Encounters Date Type Department Care Team (Late st Contact Info) Description 07/05/2024 4:00 PM CDT Office Visit [facility] [address] [place] [address] Vignesh Maharaj MD [address] [address] documented as of this encounter Visit Diagnoses Diagnosis Chronic bilateral low back pain with bilateral sciatica documented in this encounter Additional Health Concerns Infection Onset Date Last Indicated Resolved Time COVID - 19 06/14/2020 06/14/2020 06/14/2020 3:16 PM CDT COVID - 19 Confirmed 02/20/2021 02/20/2021 021 12:16 AM PRODUCT DISTRIBUTION SPECIALIST Respiratory Rule Out - RPA 12/30/2022 12/30/2022 1 2:36 PM CDT COVID - 19 12/30/2022 12/30/2022 01/09/2023 12:1 6 AM CDT COVID - 19 07/04/2023 07/04/2023 07/04/2023 10:4 5 AM CDT Assessment Noted Time PHQ-9 Depression Total Score: 0 10/02/19 8:00 AM CDT documented as of this encounter Care Teams Boiler Tender Relationship Specialty Start Date End Date Vignesh Maharaj MD [address] [facility] [address] [place] [address] PCP - General Family Medicine 10/13/19 Nicanor Syed MD [address] [facility] [place] [address] Consulting Physician Obstetrics & Gynecology 11/03/17 Misa Garcia MD #[address] [facility] [address] [place] [address] Consulting Physician Endocrinology 07/22/23 documented as of this encounter
--- OUTSIDE RECORDS SUMMARY | 2024-06-21 08:21 | XMS_ITS | Clinical Summary ---
Author Organization [facility] Address [address] [facility] [place] [address] Care Team Providers Care Patient Ombudsperson Name Role Phone Vignesh Maharaj MD Primary Care Provider [phone] Source Comments [facility],non-owned Affiliates and Associated Physician Practices is amultiple site organization consisting of ambulatory clinics and hospital sitesin [place], [place], [place] and [place]. This disclosure is being madepursuant to the Care Everywhere program and may not contain all information available regarding this patient. Last updated 17.[facility] Allergies Active Allergy Reactions Criticality Noted Date Comments Amoxicillin-Pot Clavulanate Nausea and/or Vomiting Low 06/10/2012 Augmentin GI Discomfort 03/18/2011 vomiting Medications * Be aware that medications may not be up to date on this document. Alwaysverify current medications with the patient. Medication Sig Dispensed Refills Start Date End Date Status albuterol HFA (PROVENTIL;VENTOLIN;P ROAIR) 108 (90 BASE) MCG/ACT inhaler Inhale 2 Puffs by mouth every 6 hours as needed. Active pentosan polysulfate sodium (ELMIRON) 100 MG capsule Take 1 capsule by mouth 3 times daily before meals 90 capsule 5 04/21/2018 Active Active Problems Problem Noted Date Diagnosed Date Supervision of high-risk 03/18/2011 Overview (03/22/2011): Dating by 8wk ultrasound not consistent with LMP 4/30/11 A neg/NI/-/-. HIV NR Pap normal this GCT 106 GC/CT neg GBS neg Ectopic 03/18/2011 Overview (03/18/2011): Given MTX Recurrent UTI 03/18/2011 Overview (03/18/2011): On Macrobid suppression Asthma 03/18/2011 Overview (03/18/2011): Rare use of albuterol inhaler RhD negative 03/18/2011 Overview (03/18/2011): Given RhoGAM 02/12/2011 Family History Medical History Relation Name Comments Arthritis Mother Cancer Mother Diabetes Mother Diabetes - Type 2 Mother Hypertension Mother Kidney Disease Mother Stroke Mother Relation Name Status Comments Mother Social History Tobacco Use Types Packs/Day Years Used Date Smoking Tobacco: Never Smokeless Tobacco: Never Alcohol Use Standard Drinks/Week Comments No 0 (1 standard drink = 0.6 oz pur e alcohol) Sex and Gender Information Value Date Recorded Sex Assigned at Not on file Gender Identity Not on file Sexual Orientation Not on file Last Filed Vital Signs Vital Sign Reading Time Taken Comments Blood Pressure 140/78 04/21/2018 11:08 AM PENAL OFFICER Pulse 83 02/22/2014 12:00 PM PENAL OFFICER Temperature 36.6 C (97.8 F) 02/22/2014 12:00 PM PENAL OFFICER Respiratory Rate 16 02/22/2014 12:00 PM PENAL OFFICER Oxygen Saturation 100% 02/22/2014 12:00 PM PENAL OFFICER Inhaled Oxygen Concentration - - Weight 92.1 kg (203 lb) 04/21/2018 11:08 AM PENAL OFFICER Height 162.6 cm (5' 4 ) 04/21/2018 11:08 AM PENAL OFFICER Body Mass Index 34.84 04/21/2018 11:08 AM PENAL OFFICER Plan of Treatment Health Maintenance Due Date Last Done Comments DTAP/TDAP/TD VACCINES (1 - Tdap) 2005 HEPATITIS B VACCINE (1 of 3 - 19+ 3-dose series) 2005 PNEUMOCOCCAL VACCINE (1 of 2 - PCV) 2005 PAP with HPV 2016 COVID-19 VACCINE ( - 2023-2 5 season) 2023 DEPRESSION SCREENING 03/17/2024 INFLUENZA VACCINE (Season Ended) 2024 ZOSTER VACCINE (1 of 2) 2036 HEPATITIS C SCREENING Completed 06/14/2012 HIV SCREENING Completed 06/14/2012 HIB VACCINE Aged Out No longer eligi ble based on patient's age to complete this topic HPV VACCINE Aged Out No longer eligi ble based on patient's age to complete this topic MENINGOCOCCAL (Group B) VACC INE SHARED DECISION-MAKING Aged Out No longer eligibl e based on patient's age to complete this topic MENINGOCOCCAL GROUPS A/C/Y/W VACCINE Aged Out No longer eligible b ased on patient's age to complete this topic Procedures Procedure Name Priority Date/Time Associated Diagnosis Comments HEPATITIS C ANTIBODY Routine 06/14/2012 10:03 AM CDT HIV-1 HIV-2 ANTIGEN/ANTIBODY Routine 06/14/2012 10:03 AM CDT from Last 3 Months or Most Recently Relevant to Health Maintenance Results * HIV-1 HIV-2 ANTIGEN/ANTIBODY (06/14/2012 10:03 AM CDT) HIV Antigen/Antib augustin 1 & 2 NONREACTIVE NONREACTIVE [facility] Comment:HIV-1 p24 AG and HIV -1/HIV-2 AB NOT DETECTED. Blood specimen (specimen) 06/14/2012 10:03 AM CDT 06/14/2012 10:16 AM CDT Jose Keyes MD LAB - HEMATOLOGY ORD ERABLES [address] [phone] * HEPATITIS C ANTIBODY (06/14/2012 10:03 AM CDT) Hepatitis C Antibody NONREACTIVE NONREACTIVE [facility] Comment: Anti-HCV screen indicates no serologic evidence of past or current infection with Hepatitis C Virus. Patients with unexplained liver disease who are immunocompromised or suspected of having acute Hepatitis C infection may benefit from Nucleic Acid Test (VEDA) for Hepatitis C Viral RNA to confirm Hepatitis C status. 06/14/2012 10:0 3 AM CDT 06/14/2012 10:16 AM CDT Jose Keyes MD LAB - CHEMISTRY [facility] [address] [phone] from Last 3 Months or Most Recently Relevant to Health Maintenance Advance Directives * FULL RESUSCITATION (Latest Code Status on File) Date Activated Date Inactivated Comments 03/18/2011 2:18 AM 03/18/2011 11:19 PM Care Teams Patient Ombudsperson Relationship Specialty Start Date End Date Vignesh Maharaj MD PCP - General 04/21/18
--- OUTSIDE RECORDS SUMMARY | 2024-06-21 08:21 | XMS_ITS | Clinical Summary ---
Author Organization [facility] Address [address] [place] [address] Care Team Providers Care Boom Tender Name Role Phone Vignesh Maharaj MD Primary Care Provider [phone] Allergies Active Allergy Reactions Criticality Noted Date Comments Amoxicillin-Pot Clavulanate Diarrhea,Nausea And Vomiting,Stomach upset,Vomiting Low 03/18/2011 Reaction: NAUSEA, VOMITING, augmentin Medications ibuprofen (ibuprofen) 200 mg tab/cap take 1 capsule by oral route every 6 hours as needed 0 0 3 Active Additional Information Patient not taking.Informant: Self, Reported on 07/02/2023 albuterol HFA (PROVENTIL HFA,VENTOLIN HFA,PROAIR HFA) 90 mcg/actuation inhalerIndicati ons:Acute Asthma Attack Inhale 1-2 puffs every 4 (four) hours as needed for wheezing or shortness of breath 0 Active ondansetron (ZOFRAN) 4 mg tablet Take 1 tablet (4 mg total) by mouth every 8 (eight) hours as needed for nausea 12 tablet 2 Active Additional Information Patient not taking.Informant: Self, Reported on 07/02/2023 HYDROcodone-serena taminophen (NORCO) 5-325 mg per tabletIndicatio ns:Pain Take 1 tablet by mouth every 6 (six) hours as needed for pain 20 tablet 2 Active Additional Information Patient taking differently:1 tablet oralAs needed, pain, Indications: Pain, Informant: Self, Reported on 08/07/2022 fluticasone propionate (FLONASE) 50 mcg/actuation nasal spray Administer 2 sprays into each nostril as needed for allergies Active cetirizine (ZyrTEC) 10 mg tabletIndicatio ns:Allergic Rhinitis Take 1 tablet (10 mg total) by mouth as needed for allergies or rhinitis Active MULTIVITAMIN ORALIndications :supplement Take 1 tablet by mouth every morning Active docusate sodium (COLACE) 100 mg capsuleIndicati ons:constipatio n Take 1 capsule (100 mg total) by mouth 2 (two) times a day 14 capsule 3 Active Additional Information Patient not taking.Reported on 07/02/2023 aspirin 325 mg tablet Take 1 tablet (325 mg total) by mouth daily for 14 days 14 tablet 3 Active ondansetron (ZOFRAN) 4 mg tablet Take 1 tablet (4 mg total) by mouth every 8 (eight) hours as needed for nausea 12 tablet 3 Active Additional Information Patient not taking.Reported on 07/02/2023 HYDROcodone-serena taminophen (NORCO) 10-325 mg per tabletIndicatio ns:Pain Take 1 tablet by mouth every 6 (six) hours as needed for pain 30 tablet 3 Active Additional Information Patient not taking.Reported on 07/02/2023 sulfamethoxazol e-trimethoprim (BACTRIM DS) 800-160 mg per tablet Take 1 tablet (160 mg of trimethoprim total) by mouth 2 (two) times a day 14 tablet 3 Active Additional Information Patient not taking.Reported on 07/02/2023 meloxicam (MOBIC) 15 mg tablet Take 1 tablet (15 mg total) by mouth daily 30 tablet 3 Active Active Problems Problem Noted Date Diagnosed Date Left shoulder pain 01/28/2023 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 Impingement syndrome involvi ng patellar fat pad of left knee 12/19/2020 Left knee pain 10/23/2020 Prediabetes 06/16/2020 BMI 35.0-35.9,adult 06/14/2020 Numbness and tingling of both lower extremities 04/06/2019 Chronic bilateral low back pain with bilateral s ciatica 11/03/2017 Mild intermittent asthma without complication Numbness and tingling in right hand 11/03/2017 Physical exam, annual 11/03/2017 Tenderness of head and neck region 01/13/2015 Overview (06/21/2016): Tenderness of head and neck region Carpal tunnel syndrome 06/03/2013 Overview (06/21/2016): Carpal Tunnel Syndrome Pain in extremity 06/03/2013 Overview (06/21/2016): PAIN IN LIMB Headache 06/03/2013 Overview (06/21/2016): Headache Asthma 03/18/2011 Overview (10/11/2020): Rare use of albuterol inhaler Ectopic 03/18/2011 Overview (10/11/2020): Given MTX Recurrent UTI 03/18/2011 Overview (10/11/2020): On Macrobid suppression RhD negative 03/18/2011 Overview (10/11/2020): Given RhoGAM 02/12/2011 Supervision of high-risk 03/18/2011 Overview (10/11/2020): Dating by 8wk ultrasound not consistent with LMP 07/14/10 A neg/NI/-/-. HIV NR Pap normal this GCT 106 GC/CT neg GBS neg Surgical History Surgery Date Site/Laterality Comments OTHER SURGICAL HISTORY 03/17/2012 - 03/16/2013 Right pt had surgery for dog attack - right leg APPENDECTOMY 03/17/2010 - 03/16/2011 TUBAL LIGATION 03/17/2011 - 03/16/2012 CARPAL TUNNEL RELEASE 03/17/2012 - 03/16/2013 Right ARM SURGERY 03/17/2013 - 03/16/2014 Right CHOLECYSTECTOMY 03/17/2020 - 03/16/2021 KNEE CARTILAGE SURGERY 04/17/2021 - 05/14/2021 Left FL UPPER GI AIR CONTRAST W KUB 05/13/2019 Left Medical History Medical History Date Comments Hx Other Medical neuropathy Hx Other Medical 2012 Right lower leg reconstruction; Laterality: right Asthma Asthma Hx Other Medical 2012 Right forearm r econstruction; Laterality: right Allergic rhinitis Motion sickness Family History Medical History Relation Name Comments Cancer Father Cancer; Diabetes Mother Diabetes mellit us; Heart disease Mother Hypertension Mother Kidney disease Mother Heart disease Other 1 Family history of Heart problems; Hypertension Other 2 Family history of Hypertension; Breast cancer Paternal Grandmother Anesthesia problems Neg Hx Relation Name Status Comments Father Mother Other 1 Other 2 Paternal Grandmother Social History Tobacco Use Types Packs/Day Years Used Date Smoking Tobacco: Never Smokeless Tobacco: Never Alcohol Use Standard Drinks/Week Comments No 0 (1 standard drink = 0.6 oz pur e alcohol) AUDIT-C Answer Date Recorded Q1: How often do you have a drink containing alcohol? Never 08/07/2022 Q2: How many drinks containi ng alcohol do you have on a typical day when you are drinking? Patient does not drink Q3: How often do you have si x or more drinks on one occasion? Never 08/07/2022 Personal Safety Answer Date Recorded Have you ever been in or are you currently in a harmful physical or emotional relationship or is someone making you feel afraid or unsafe? Denies 08/19/2022 Comments No Sex and Gender Information Value Date Recorded Sex Assigned at Not on file Legal Sex Female 1:47 PM COMPENSATOR WORKER Gender Identity Not on file Sexual Orientation Not on file Obstetrics History Last Filed Vital Signs Vital Sign Reading Time Taken Comments Blood Pressure 112/64 08/19/2022 5:45 PM CDT Pulse 63 08/19/2022 5:55 PM CDT Temperature 36.3 C (97.3 F) 08/19/2022 5:45 PM CDT Respiratory Rate 17 08/19/2022 5:55 PM CDT Oxygen Saturation 97% 08/19/2022 5:55 PM CDT Inhaled Oxygen Concentration - - Weight 98.4 kg (217 lb) 07/02/2023 8:50 AM CDT Height 162.6 cm (5' 4.02 ) 07/02/2023 8:50 AM CD T Body Mass Index 37.23 07/02/2023 8:50 AM CDT Plan of Treatment Health Maintenance Due Date Last Done Comments Cervical Cancer Screening 1986 Depression Screening 1986 Hepatitis C Screening 1986 DTaP/Tdap/Td Vaccine (6 - Tdap) 1997 11/01/1991, 04/15/1988, 1986, Additional history exists Varicella Vaccines (1 of 2 - 13+ 2-dose series) 1999 Regular Well Visit/Exam 18-64 2004 Pneumococcal vaccine <65 (2 of 2 - PCV) 06/15/2021 06/15/2020 Influenza Vaccine (#1) 2023 , 06/15/2020, 12/04/2018, Additional history exists Hepatitis B Screening Completed 04/12/1997 , 06/15/1996, 02/03/1996 HPV Vaccines Aged Out No longer eligi ble based on patient's age to complete this topic Medical Devices Implanted Type Area Model Maker Scale Device Identifier Shelf Expiration Date Model / Serial / Lot [employer] Membrane 1 Shana Autologous Cultured Chondrocytes [id number] - [id number] - [id number] Implanted:Qty: 1 on 08/19/2022 by Keron Robertson MD at [facility] Left: Knee [employer] 08/22/2022 [id number] / [id number] / [id number] Insurance [facility] Care Teams Boom Tender Relationship Specialty Start Date End Date Vignesh Maharaj MD [address] [address] PCP - General Family Medicine 09/11/20
--- OUTSIDE RECORDS SUMMARY | 2024-06-21 08:21 | XMS_ITS | Referral Summary ---
Author Organization [facility] Address [address] [place] [address] Care Team Providers Care Fur Repair Inspector Name Role Phone Vignesh Maharaj MD Primary Care Provider [phone] Allergies Active Allergy Reactions Criticality Noted Date [...] this GCT 106 GC/CT neg GBS neg Social History Tobacco Use Types Packs/Day Years [...] on file Legal Sex Female 1:47 PM OB TECH Gender Identity Not on file Sexual Orientation [...] 07/02/2023 8:50 AM CDT Plan of Treatment Not on file Medical Devices Implanted Type Area Fur Feeder Device Identifier Shelf Expiration Date Model / Serial / Lot [employer] A Cab Membrane 1 Shana Autologous Cultured Chondrocytes [id number] - [id number] - [id number] Implanted:Qty: 1 on 08/19/2022 by Keron Robertson MD at [facility] Left: Knee [employer] 08/22/2022 [id number] / [id number] / [id number] Insurance [facility] Care Teams Fur Repair Inspector Relationship Specialty Start Date End Date Vignesh Maharaj MD [address] [place] [address] PCP - General Family Medicine 09/11/20
--- OUTSIDE RECORDS SUMMARY | 2024-06-21 08:21 | XMS_ITS | Encounter Summary ---
Author Organization [facility] Address [address] [place] [address] Phone Care Team Providers Care Grain Combine Driver Name Role Phone Nicanor Syed MD Unavailable [phone] Vignesh Maharaj MD Primary Care Provider [phone] Misa Garcia MD Unavailable Reason for Visit * Reason Comments Medication Refill Encounter Details Date Type Department Care Team (Late st Contact Info) Description 10/16/2022 Refill [facility] [address] [place] [id number] Vignesh Maharaj MD [address] [address] Medication Refill Social History Tobacco Use Types Packs/Day Years Used Date Smoking Tobacco: Never Smokeless Tobacco: Never Alcohol Use Standard Drinks/Week Comments Not Currently 0 (1 standard drink = 0.6 oz pur e alcohol) PHQ-2 Answer Date Recorded Total Score - Questions 1-9 0 03/2022 Education Answer Date Recorded What is the highest level of school you have completed or the highest degree you have received? 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 No / Unsure 10/17/2022 10:29 AM CDT documented as of this encounter Miscellaneous Notes * Telephone Encounter - Ciara Mckinney RN - 09/25/2023 11:21 AM CDT Rx * Telephone Encounter - Joan Diaz RN - 10/16/2022 1:48 PM CDT Medication failed the protocol, provider to review and approve the medication order if appropriate. Requested Prescriptions Pending Prescriptions Disp Refills meloxicam (MOBIC) 15 MG Tablet [Pharmacy Med Name: MELOXICAM 15 MG TABLET] 90 Tablet 1 Sig: TAKE 1 TABLET BY MOUTH EVERY DAY NSAIDs Protocol Passed - 10/16/2022 12:55 AM Passed - Normal serum creatinine in past 12 months CREATININE, BLOOD Date Value Ref Range Status 04/17/2022 0.63 0.60 - 1.10 mg/dL Final Passed - No positive test in the past 12 months or most recent test was negative Passed - Visit with relevant provider in past 12 months or upcoming 90 days Recent Visits Date Type Provider Dept 09/03/22 Telemedicine Vignesh Maharaj MD [facility] 04/17/22 Office Visit Vignesh Maharaj MD [facility] Showing recent visits within past 365 days and meeting all other requirements Today's Visits Date Type Provider Dept 10/16/22 Office Visit Vignesh Maharaj MD [facility] Showing today's visits and meeting all other requirements Future Appointments No visits were found meeting these conditions. Showing future appointments within next 90 days and meeting all other requirements Passed - No active on record Passed - No matching NSAID med order in past 45 days No matching medication orders between 09/01/2022 1:48 PM and 10/16/2022 1:48 PM Passed - AST less than 55 or ALT less than 90 in past 12 months SGOT (AST) Date Value Ref Range Status 04/17/2022 13 <=32 U/L Final SGPT (ALT) Date Value Ref Range Status 04/17/2022 17 <=41 U/L Final Passed - HGB greater than 10 or HCT greater than 30 in past 12 months HEMOGLOBIN (HGB) Date Value Ref Range Status 04/17/2022 13.7 12.0 - 15.8 g/dL Final HEMATOCRIT (HCT) Date Value Ref Range Status 04/17/2022 41.9 36.0 - 47.0 % Final documented in this encounter Plan of Treatment Upcoming Encounters Date Type Department Care Team (Late st Contact Info) Description 07/05/2024 4:00 PM CDT Office Visit [facility] [address] [place] [address] Vignesh Maharaj MD [address] [address] documented as of this encounter Visit Diagnoses Diagnosis Chronic bilateral low back pain with bilateral sciatica documented in this encounter Additional Health Concerns Infection Onset Date Last Indicated Resolved Time Respiratory Rule Out - RPA 12/30/2022 12/30/2022 1 2:36 PM CDT COVID - 19 12/30/2022 12/30/2022 01/09/2023 12:1 6 AM CDT COVID - 19 07/04/2023 07/04/2023 07/04/2023 10:4 5 AM CDT Assessment Noted Time PHQ-9 Depression Total Score: 0 04/17/19 9:00 AM CORPORATE TRAINING MANAGER documented as of this encounter Care Teams Grain Combine Driver Relationship Specialty Start Date End Date Vignesh Maharaj MD [address] [address] PCP - General Family Medicine 10/13/19 Nicanor Syed MD [address] [facility] [address] [place], [place] [id number] Consulting Physician Obstetrics & Gynecology 11/03/17 Misa Garcia MD [address] [address] Consulting Physician Endocrinology 07/22/23 documented as of this encounter
--- OUTSIDE RECORDS SUMMARY | 2024-06-21 08:21 | XMS_ITS | Encounter Summary ---
Author Organization [facility] Address [address] [place] [address] Phone Care Team Providers Care Optomechanical Engineer Name Role Phone Nicanor Syed MD Unavailable [phone] Vignesh Maharaj MD Primary Care Provider Misa Garcia MD Unavailable Encounter Details Date Type Department Care Team (Late st Contact Info) Description 06/02/2024 Results Follow-Up [facility] - Family Medicine [facility] [address] [place] [address] Norma March, APPRENTICE, BUDGET ENGINEER [address] [place] [address] Social History Tobacco Use Types Packs/Day Years Used Date Smoking Tobacco: Never Smokeless Tobacco: Never Alcohol Use Standard Drinks/Week Comments Not Currently 0 (1 standard drink = 0.6 oz pur e alcohol) [facility] Utilities Answer Date Recorded In the past 12 months has [employer] electric, gas, oil, or water company threatened to shut off services in your home? No 04/01/2024 Social Connection and Isolat ion Panel [NHANES] Answer Date Recorded In a typical week, how many times do you talk on the phone with family, friends, or neighbors? More than three times a week 04/01/2024 How often do you get togethe r with friends or relatives? Once a week 04/01/2024 How often do you attend chur ch or hinduism services? Patient declined 04/01/2024 Do you belong to any clubs o r organizations such as yazdanism groups, unions, fraternal or athletic groups, or school groups? No 04/01/2024 How often do you attend meet ings of the clubs or organizations you belong to? Never 04/01/2024 Are you , , di vorced, , never , or living with a partner? 04/01/2024 AUDIT-C Answer Date Recorded Q1: How often do you have a drink containing alcohol? Never 04/01/2024 Q2: How many drinks containi ng alcohol do you have on a typical day when you are drinking? Patient does not drink Q3: How often do you have si x or more drinks on one occasion? Never 04/01/2024 Overall Financial Resource Strain (CARDIA) Answe r Date Recorded How hard is it for you to pa y for the very basics like food, housing, medical care, and heating? Not very hard 04/01/2024 PHQ-2 Answer Date Recorded Total Score - Questions 1-9 0 07/0 05/2023 [facility] - Occupational Stress Questionnaire Answer Date Recorded Do you feel stress - tense, restless, nervous, or anxious, or unable to sleep at night because your mind is troubled all the time - these days? Only a little 04/01/2024 Exercise Vital Sign Answer Date Recorde d On average, how many days pe r week do you engage in moderate to strenuous exercise (like a brisk walk)? 3 days 04/01/2024 On average, how many minutes do you engage in exercise at this level? 40 min 04/01/2024 Hunger Vital Sign Answer Date Recorded Within the past 12 months, y ou worried that your food would run out before you got the money to buy more. Never true 04/01/19 25 Within the past 12 months, t he food you bought just didn't last and you didn't have money to get more. Often true 04/01/2024 PRAPARE - Transportation Answer Date Re corded In the past 12 months, has l ack of transportation kept you from medical appointments or from getting medications? No 03/17 In the past 12 months, has l ack of transportation kept you from meetings, work, or from getting things needed for daily living? No 04/01/2024 Housing Stability Vital Sign Answer Petey e Recorded In the last 12 months, was t here a time when you were not able to pay the mortgage or rent on time? No 04/01/2024 Number of Times Moved in the Last Year Not on fi le 04/01/2024 At any time in the past 12 m [facility] [place], were you homeless or living in a long-term (including now)? No 04/01/2024 Education Answer Date Recorded What is the highest level of school you have completed or the highest degree you have received? 12th grade 10/16/2022 Sexually Active Control Partners Comments Yes Surgical Male Comments No Sex and Gender Information Value Date Recorded Sex Assigned at Female 05/21/2023 2:05 PM SUPERINTENDENT NONSELLING Legal Sex Female 3:16 AM SUPERINTENDENT NONSELLING Gender Identity Female 05/21/2023 2:05 PM SUPERINTENDENT NONSELLING Sexual Orientation Not on file Occupation Industry Job Start Date Job End Date [employer] Not on file Not on file Not on fi le documented as of this encounter Plan of Treatment Upcoming Encounters Date Type Department Care Team (Late st Contact Info) Description 07/05/2024 4:00 PM CDT Office Visit [facility] - Family Medicine [facility] [address] [place] [address] Vignesh Maharaj MD [address] [address] documented as of this encounter Visit Diagnoses Not on filedocumented in this encounter Additional Health Concerns Assessment Noted Time PHQ-9 Depression Total Score: 0 09/17/19 24 9:39 AM CDT documented as of this encounter Care Teams Optomechanical Engineer Relationship Specialty Start Date End Date Vignesh Maharaj MD [address] [address] PCP - General Family Medicine 10/13/19 Nicanor Syed MD [address] [place] [address] [address], [address] [place] [address] Consulting Physician Obstetrics & Gynecology 11/03/17 Misa Garcia MD [address] [phone] Consulting Physician Endocrinology 07/22/23 documented as of this encounter
--- OUTSIDE RECORDS SUMMARY | 2024-06-21 08:21 | XMS_ITS | Data Portability ---
Author Organization [facility] Address [address] [place] [address] Care Team Providers Care Food Server Name Role Phone SARA MYERS Primary Care Provider [phone] Assessment No assessment recorded. Plan of Treatment Reminders Order Date Submit Date Provider Last Modified By Organization Details Last Modified Time Details Appointments None recorded. Lab cytology report, thin prep, smear or scraping, cervical or vaginal - brush and broom. cervical and endocervi jennifer. collected adarsh magaña DIRECTOR PAYMENT 2023 024 [facility], [address] [place] [address], [address], 4 16:14:51 prolactin , serum 2023 024 [facility], [address] [place] [address], [place], [address], 4 16:14:56 lh + FSH, serum 2023 024 [facility], [address] [place] [address] 2[place], [address], 4 16:14:58 TSH + free T4, serum 2023 024 [facility], [address] [place] [address] 2, [place], [address], 4 16:14:54 CBC w/ auto diff 2023 024 [facility], [address] [place] [address] 2, [place], [address], 4 07:14:40 estradiol , serum 2023 024 [facility], [address] [facility], [facility] 2, [place], [address], 4 16:14:57 HbA1c (hemoglob in A1c), blood 2023 024 [facility], [address] [facility], [facility] 2, [place], [address], 4 16:14:55 HCG, intact + beta subunit, quant, serum or plasma 2023 024 [facility], [address] [facility], [facility] 2, [place], [address], 4 16:14:56 lipid panel, serum 2023 024 [facility], [address] [place] [address], [facility] 2, [place], [address], 4 07:14:39 CMP, serum or plasma 2023 024 [facility], [address] [facility], [facility] 2, [place], [address], 4 07:14:39 urinalysi s, dipstick 2018 019 meagan In-Office Order, Internal Use Only DO Not Attach Compendium DO Not Attach Compendium, Do Not Delete/merge, [id number] 9 09:31:16 culture, urine 2018 019 EFREN AQU[facility], [address], [address], [place], [address], 9 16:10:22 bacterial vaginosis + vaginitis panel, vaginal 2017 018 EFREN AQUINO, [address], [address], [place], [address], 8 07:16:43 pap, IG + HPV 2017 018 [id number] [facility], [address], [address], [place], [address], 1 03:32:08 urinalysi s, dipstick 2017 018 meagan In-Office Order, Internal Use Only DO Not Attach Compendium DO Not Attach Compendium, Do Not Delete/merge, [id number] 8 13:43:00 test, urine 2017 018 EFREN In-Office Order, Internal Use Only DO Not Attach Compendium DO Not Attach Compendium, Do Not Delete/merge, [id number] 8 13:28:08 Referral genetic counselor referral 2023 024 [email or web address] [facility] Genetic Counselor, [address] [place] [address], [address], 4 14:18:58 breast surgery referral 2023 024 [facility] Surgery: Nai chambers MD, [address] [place] [address], [place], [address], 4 15:56:52 gynecolog ist referral 2017 018 Critical access hospital Physician Referral Management, [facility] Level [address], [place], [address], 9 09:34:06 Procedures None recorded. Surgeries None recorded. Imaging US, breast, unilatera l 2023 024 [facility] ([facility]) Scheduling, [address] [place], [address], 4 16:48:21 MAMMO, diagnosti c, tomosynth esis, bilateral - family history of breast cancer( paternal grandmoth er age 37) 2023 024 [facility] ([facility]) Scheduling, [address] [place], [address], 4 15:36:24 US, pelvis, transabdo vivian + transvagi nal 2023 024 [facility] ([facility]) Scheduling, 1 [facility], [place], [address], 4 16:49:21 US, pelvis, transabdo vivian + transvagi nal 2018 019 [facility] ([facility]) Scheduling, [address] [place], [address], 9 16:55:06 US, pelvis, transabdo vivian + transvagi nal 2017 018 [facility] ([facility]) Scheduling, [address] [place], [address], 8 14:09:58 Medication Orders ciproflox acin 500 mg tablet 2018 019 [id number], [address] [place], [address], 4 14:09:25 Patient TargetsNo targets recorded. Patient Instructions Encounter Date Encounter Id Patient Instructions Last Modified By Organization Details Last Modified Time 01/06/2018 [id number] eating healthy foods: care instructions fernstrn Not available 01/06/2018 12:17:21 When You Want to Lose Weight: Care Instructions fernstrn Not available 01/06/2018 12:17:21 03/18/2018 [id number] Urinary Tract Infection (UTI) in Women: Care Instructions fernstrn Not available 03/18/2018 10:09:41 04/22/2023 [id number] A healthy lifestyle: care instructions fernstrn Not available 04/22/2023 15:31:57 Reason for Referral Tool Dresser Referral for Pa in in pelvis Referring Physician: Adarsh Magaña PACKAGING SALES CONSULTANT, Encounter Date: 01/29/2018 Breast Surgery Referral for Pain of left breast Referring Physician: Adarsh Magaña PACKAGING SALES CONSULTANT, Encounter Date: 04/22/2023 Genetic Counselor Referral f or Family history of breast cancer Referring Physician: Adarsh Magaña PACKAGING SALES CONSULTANT, Encounter Date: 04/22/2023 Results Created Date Observation Date Name Description Value Unit Range Abnormal Flag Note LastModifiedBy Organization Detail LastModifiedTime 01/07/20 18 01/08/2018 bacte rial vagin osis + vagin itis panel , vagin al atopobium vaginae High - 2 score abnormal Not Available [facility] ([facility]) [address] [place], [address], 01/09/2018 07:16:43 01/07/20 18 01/08/2018 bacte rial vagin osis + vagin itis panel , vagin al bvab 2 High - 2 score abnormal Not Available [facility] ([facility]) [address] [place], [address], 01/09/2018 07:16:43 01/07/20 18 01/08/2018 bacte rial vagin osis + vagin itis panel , vagin al megasphaera 1 High - 2 score abnormal Calcu late total score by addin g the 3 indiv idual bacte rial vagin osis (BV) marke r score s toget her. Total score is inter prete d as follo ws: Total score 0-1: Indic ates the absen ce of BV. Total score 2: Indet ermin ate for BV. Addit ional clini jennifer data shoul d be evalu ated to estab abdi a diagn osis. Total score 3-6: Indic ates the prese nce of BV. This test was devel oped and its perfo rmanc e urban cteri stics deter mined by [facility]. It has not been clear ed or appro shreyas by the Food and Drug Admin istra tion. The FDA has deter mined that such clear ance or appro milan is not neces bishop. Not Available [facility] ([facility]) [address] [place], [address], 01/09/2018 07:16:43 01/07/20 18 01/08/2018 bacte rial vagin osis + vagin itis panel , vagin al niecy albicans, STEPHANE Negati ve negati ve Not Available [facility] ([facility]) [address] [place], [address], 01/09/2018 07:16:43 01/07/20 18 01/08/2018 bacte rial vagin osis + vagin itis panel , vagin al niecy glabrata, STEPHANE Negati ve negati ve This test was devel oped and its perfo rmanc e urban cteri stics deter mined by [facility]. It has not been clear ed or appro shreyas by the Food and Drug Admin istra tion. The FDA has deter mined that such clear ance or appro milan is not neces bishop. Not Available [facility] ([facility]) [address] [facility], [place], [address], 01/09/2018 07:16:43 01/07/20 18 01/08/2018 bacte rial vagin osis + vagin itis panel , vagin al trich vag by STEPHANE Negati ve negati ve Not Available [facility] ([facility]) [address] [place], [address], 01/09/2018 07:16:43 01/07/20 18 01/08/2018 bacte rial vagin osis + vagin itis panel , vagin al chlamydia trachomatis, STEPHANE Negati ve negati ve Not Available [facility] ([facility]) [address] [place], [address], 01/09/2018 07:16:43 01/07/20 01/08/2018 bacte rial vagin osis + vagin itis panel , vagin al neisseria gonorrhoeae, STEPHANE Negati ve negati ve Not Available [facility] ([facility]) [address] [place], [address], 01/09/2018 07:16:43 01/07/20 18 01/08/2018 pap, IG + HPV HPV aptima Negati ve negati ve This test detec ts fourt een high- risk HPV types (16/1 8/31/ 33/35 /39/4 5/ 51/52 /56/5 8/59/ 66/68 ) witho ut diffe renti ation . Not Available [facility] ([facility]) [address] [place], [address], 01/10/2018 07:13:13 01/07/20 18 01/09/2018 pap, IG + HPV diagnosis: Commen t NEGAT MARRY FOR INTRA EPITH ELIAL LEONEL Clarke AND HILARY KWOK . PREDO MINAN CE OF [place] BACIL LI CONSI STENT WITH SHIFT IN VAGIN AL DIVYA IS PRESE NT. THIS SPECI MEN WAS RESCR EENED PART OF OUR QUALI TY CONTR OL PROGR AM. Not Available [facility] ([facility]) [address] [place], [address], 01/10/2018 07:13:13 01/07/20 18 01/09/2018 pap, IG + HPV specimen adequacy: Commen t Satis facto ry for evalu ation . Endoc ervic al and/o r squam ous metap lasti c cells (endo cervi jennifer compo nent) are prese nt. Not Available [facility] ([facility]) [address] [place], [address], 01/10/2018 07:13:13 01/07/20 18 01/09/2018 pap, IG + HPV clinician provided ICD10: Commen t Z01.4 19 Not Available [facility] ([facility]) [address] [place], [address], 01/10/2018 07:13:13 01/07/20 18 01/09/2018 pap, IG + HPV performed by: Molina Olguin rs, Cytot echno logis t (ASCP ) Not Available [facility] ([facility]) [address] [place], [address], 01/10/2018 07:13:13 01/07/20 18 01/09/2018 pap, IG + HPV QC reviewed by: Molina Plascencia ns, Cytot echno logis t (ASCP ) Not Available [facility] ([facility]) [address] [place], [address], 01/10/2018 07:13:13 01/07/20 18 01/09/2018 pap, IG + HPV . . Not Available [facility] ([facility]) [address] [place], [address], 01/10/2018 07:13:13 01/07/20 18 01/09/2018 pap, IG + HPV note: Molina mcclellan The Pap smear is a scree devan test desig namrata to aid in the detec tion of paolo ligna nt and malig nant condi tions of the uteri ne cervi x. It is not a diagn ostic proce dure and shoul d not be used as the sole means of detec ting cervi jennifer cance r. Both false -posi tive and false -nega tive repor ts do occur . Not Available [facility] ([facility]) [address] [place], [address], 01/10/2018 07:13:13 01/07/20 18 01/09/2018 pap, IG + HPV test methodology: Molina mcclellan This liqui d based ThinP rep(R ) pap test was scree namrata with the use of an image guide court systghazala m. Not Available [facility] ([facility]) [address] [place], [address], 01/10/2018 07:13:13 01/07/20 18 01/06/2018 pregn anne-marie test, urine HCG negati ve Not Available In-Office Order Internal Use Only DO Not Attach Compendium DO Not Attach Compendium, Do Not Delete/merge, [id number] 01/06/2018 12:06:38 01/07/20 18 01/06/2018 urina lysis , dipst ick Leukocytes Small Not Available In-Offi ce Order Internal Use Only DO Not Attach Compendium DO Not Attach Compendium, Do Not Delete/merge, [id number] 01/06/2018 12:06:36 01/07/20 18 01/06/2018 urina lysis , dipst ick Nitrite negati ve Not Available In-Office Order Internal Use Only DO Not Attach Compendium DO Not Attach Compendium, Do Not Delete/merge, [id number] 01/06/2018 12:06:36 01/07/20 18 01/06/2018 urina lysis , dipst ick Urobilinogen .2 Not Available In-Of fice Order Internal Use Only DO Not Attach Compendium DO Not Attach Compendium, Do Not Delete/merge, [id number] 01/06/2018 12:06:36 01/07/20 18 01/06/2018 urina lysis , dipst ick Protein Negati ve Not Available In-Office Order Internal Use Only DO Not Attach Compendium DO Not Attach Compendium, Do Not Delete/merge, [id number] 01/06/2018 12:06:36 01/07/20 18 01/06/2018 urina lysis , dipst ick pH 7.5 Not Available In-Office Order Internal Use Only DO Not Attach Compendium DO Not Attach Compendium, Do Not Delete/merge, [id number] 01/06/2018 12:06:36 01/07/20 18 01/06/2018 urina lysis , dipst ick Blood Negati ve Not Available In-Office Order Internal Use Only DO Not Attach Compendium DO Not Attach Compendium, Do Not Delete/merge, [id number] 01/06/2018 12:06:36 01/07/20 18 01/06/2018 urina lysis , dipst ick Specific Antonito 1.015 Not Available In-Off ice Order Internal Use Only DO Not Attach Compendium DO Not Attach Compendium, Do Not Delete/merge, [id number] 01/06/2018 12:06:36 01/07/20 18 01/06/2018 urina lysis , dipst ick Ketone Trace Not Available In-Office Order Internal Use Only DO Not Attach Compendium DO Not Attach Compendium, Do Not Delete/merge, [id number] 01/06/2018 12:06:36 01/07/20 18 01/06/2018 urina lysis , dipst ick Bilirubin Negati ve Not Available In-Office Order Internal Use Only DO Not Attach Compendium DO Not Attach Compendium, Do Not Delete/merge, [id number] 01/06/2018 12:06:36 01/07/20 18 01/06/2018 urina lysis , dipst ick Glucose Negati ve Not Available In-Office Order Internal Use Only DO Not Attach Compendium DO Not Attach Compendium, Do Not Delete/merge, [id number] 01/06/2018 12:06:36 01/07/20 18 01/06/2018 urina lysis , dipst ick Appearance Slight ly Cloudy Not Available In-Office Order Internal Use Only DO Not Attach Compendium DO Not Attach Compendium, Do Not Delete/merge, [id number] 01/06/2018 12:06:36 01/07/20 18 01/06/2018 urina lysis , dipst ick Color Yellow Not Available In-Office Order Internal Use Only DO Not Attach Compendium DO Not Attach Compendium, Do Not Delete/merge, [id number] 01/06/2018 12:06:36 03/18/19 19 03/21/2018 cultu re, urine urine culture, routine Final report abnormal Not Available [facility] ([facility]) [address], [place], [address], 03/21/2018 16:10:22 03/18/19 19 03/21/2018 cultu re, urine result 1 Escher ichia coli abnormal Great er than 100,0 00 colon y formi ng units per mL Cefaz mateus <=4 ug/mL Cefaz mateus with an MARIO <=16 predi cts susce ptibi lity to the oral agent s cefac joshua, cefdi diamond, cefpo doxim e, cefpr ozil, cefur oxime , cepha lexin , and lorac arbef when used for thera py of uncom plica jessica urina ry tract infec tions due to E. coli, Klebs iella pneum oniae , and Prote us mirab ilis. Not Available [facility] ([facility]) [address] [facility], [place], [address], 03/21/2018 16:10:22 03/18/1903/21/2018 cultu re, urine antimicrobia l susceptibili ty Commen t S = Susce ptibl e; I = Inter media te; R = Resis tant P = Posit marry; N = Negat marry MICS are expre ssed in micro grams per mL Antib iotic RSLT# 1 RSLT# 2 RSLT# 3 RSLT# 4 Amoxi cilli n/Cla vulan ic Acid S Ampic illin S Cefep brooks S Ceftr iaxon e S Cefur oxime S Cipro floxa damon S Ertap enem S Genta micin S Imipe nem S Levof loxac in S Merop enem S Nitro furan toin S Piper acill in/Ta zobac sterling S Tetra cycli ne S Tobra mycin S Trime thopr im/Nuñez lfa S Not Available [facility] ([facility]) [address] [facility], [place], [address], 03/21/2018 16:10:22 03/18/1903/18/2018 urina lysis , dipst ick Leukocytes Negati ve Not Available In-Office Order Internal Use Only DO Not Attach Compendium DO Not Attach Compendium, Do Not Delete/merge, 03/18/2018 09:36:44 03/18/1903/18/2018 urina lysis , dipst ick Nitrite positi ve Not Available In-Office Order Internal Use Only DO Not Attach Compendium DO Not Attach Compendium, Do Not Delete/merge, 03/18/2018 09:36:44 03/18/1903/18/2018 urina lysis , dipst ick Urobilinogen .2 Not Available In-Of fice Order Internal Use Only DO Not Attach Compendium DO Not Attach Compendium, Do Not Delete/merge, 03/18/2018 09:36:44 03/18/1903/18/2018 urina lysis , dipst ick Protein Negati ve Not Available In-Office Order Internal Use Only DO Not Attach Compendium DO Not Attach Compendium, Do Not Delete/merge, 03/18/2018 09:36:44 03/18/1903/18/2018 urina lysis , dipst ick pH 7.0 Not Available In-Office Order Internal Use Only DO Not Attach Compendium DO Not Attach Compendium, Do Not Delete/merge, 03/18/2018 09:36:44 03/18/1903/18/2018 urina lysis , dipst ick Blood Negati ve Not Available In-Office Order Internal Use Only DO Not Attach Compendium DO Not Attach Compendium, Do Not Delete/merge, 03/18/2018 09:36:44 03/18/1903/18/2018 urina lysis , dipst ick Specific Antonito 1.020 Not Available In-Off ice Order Internal Use Only DO Not Attach Compendium DO Not Attach Compendium, Do Not Delete/merge, 03/18/2018 09:36:44 03/18/1903/18/2018 urina lysis , dipst ick Ketone Negati ve Not Available In-Office Order Internal Use Only DO Not Attach Compendium DO Not Attach Compendium, Do Not Delete/merge, 03/18/2018 09:36:44 03/18/1903/18/2018 urina lysis , dipst ick Bilirubin Negati ve Not Available In-Office Order Internal Use Only DO Not Attach Compendium DO Not Attach Compendium, Do Not Delete/merge, 03/18/2018 09:36:44 03/18/1903/18/2018 urina lysis , dipst ick Glucose Negati ve Not Available In-Office Order Internal Use Only DO Not Attach Compendium DO Not Attach Compendium, Do Not Delete/merge, 03/18/2018 09:36:44 03/18/1903/18/2018 urina lysis , dipst ick Appearance Cloudy Not Available In-Offi ce Order Internal Use Only DO Not Attach Compendium DO Not Attach Compendium, Do Not Delete/merge, [id number] 03/18/2018 09:36:44 04/22/19 24 04/23/2023 LIPID PANEL cholesterol, total 182 mg/dL 100-19 9 Not Available [facility] ([facility]) [address] [place], [address], 04/23/2023 07:14:39 04/22/19 24 04/23/2023 LIPID PANEL triglyceride s 120 mg/dL 0-149 Not Available [facility] ([facility]) [address] [place], [address], 04/23/2023 07:14:39 04/22/19 24 04/23/2023 LIPID PANEL HDL cholesterol 51 mg/dL >39 Not Available [facility] ([facility]) [address] [place], [address], 04/23/2023 07:14:39 04/22/19 24 04/23/2023 LIPID PANEL VLDL cholesterol jennifer 21 mg/dL 5-40 Not Available [facility] ([facility]) [address] [place], [address], 04/23/2023 07:14:39 04/22/19 24 04/23/2023 LIPID PANEL LDL chol calc (nih) 110 mg/dL 0-99 above high normal Not Available [facility] ([facility]) [address] [place], [address], 04/23/2023 07:14:39 04/22/19 24 04/23/2023 COMP. METAB OLIC PANEL (14) glucose 107 mg/dL 70-99 above high normal Not Available [facility] ([facility]) [address] [place], [address], 04/23/2023 07:14:39 04/22/19 24 04/23/2023 COMP. METAB OLIC PANEL (14) BUN 11 mg/dL 6-20 Not Available [facility] ([facility]) [address] [facility], [place], [address], 04/23/2023 07:14:39 04/22/19 24 04/23/2023 COMP. METAB OLIC PANEL (14) creatinine 0.62 mg/dL 0.57-1 .00 Not Available [facility] ([facility]) [address] [facility], [place], [address], 04/23/2023 07:14:39 04/22/19 24 04/23/2023 COMP. METAB OLIC PANEL (14) eGFR 118 mL/mi n/1.7 3 >59 Not Available [facility] ([facility]) [address] [facility], [place], [address], 04/23/2023 07:14:39 04/22/19 24 04/23/2023 COMP. METAB OLIC PANEL (14) BUN/creatini ne ratio 18 9-23 Not Available [facility] ([facility]) [address] [facility], [place], [address], 04/23/2023 07:14:39 04/22/19 24 04/23/2023 COMP. METAB OLIC PANEL (14) sodium 140 mmol/ L 134-14 4 Not Available [facility] ([facility]) [address] [place], [address], 04/23/2023 07:14:39 04/22/19 24 04/23/2023 COMP. METAB OLIC PANEL (14) potassium 4.1 mmol/ L 3.5-5. 2 Not Available [facility] ([facility]) [address] [place], [address], 04/23/2023 07:14:39 04/22/19 24 04/23/2023 COMP. METAB OLIC PANEL (14) chloride 103 mmol/ L 96-106 Not Available [facility] ([facility]) [address], [place], [address], 04/23/2023 07:14:39 04/22/19 24 04/23/2023 COMP. METAB OLIC PANEL (14) carbon dioxide, total 24 mmol/ L 20-29 Not Available [facility] ([facility]) [address] [place], [address], 04/23/2023 07:14:39 04/22/19 24 04/23/2023 COMP. METAB OLIC PANEL (14) calcium 9.4 mg/dL 8.7-10 .2 Not Available [facility] ([facility]) [address] [place], [address], 04/23/2023 07:14:39 04/22/19 24 04/23/2023 COMP. METAB OLIC PANEL (14) protein, total 7.1 g/dL 6.0-8. 5 Not Available [facility] ([facility]) [address], [place], [address], 04/23/2023 07:14:39 04/22/19 24 04/23/2023 COMP. METAB OLIC PANEL (14) albumin 4.1 g/dL 3.9-4. 9 Not Available [facility] ([facility]) [address] [place], [address], 04/23/2023 07:14:39 04/22/19 24 04/23/2023 COMP. METAB OLIC PANEL (14) globulin, total 3.0 g/dL 1.5-4. 5 Not Available [facility] ([facility] [address] [facility], [address], 04/23/2023 07:14:39 04/22/19 24 04/23/2023 COMP. METAB OLIC PANEL (14) A/G ratio 1.4 1.2-2. 2 Not Available [facility] ([facility] [address] [place], [address], 04/23/2023 07:14:39 04/22/19 24 04/23/2023 COMP. METAB OLIC PANEL (14) bilirubin, total <0.2 mg/dL 0.0-1. 2 Not Available [facility] ([facility]) [address] [facility], [address], 04/23/2023 07:14:39 04/22/19 24 04/23/2023 COMP. METAB OLIC PANEL (14) alkaline phosphatase 74 IU/L 44-121 Not Available [facility] ([facility]) [address] [facility], [address], 04/23/2023 07:14:39 04/22/19 24 04/23/2023 COMP. METAB OLIC PANEL (14) AST (SGOT) 11 IU/L 0-40 Not Available [facility] ([facility]) [address] [facility], [place], [address], 04/23/2023 07:14:39 04/22/19 24 04/23/2023 COMP. METAB OLIC PANEL (14) ALT (SGPT) 14 IU/L 0-32 Not Available [facility] ([facility]) [address] [facility] [place], [address], 04/23/2023 07:14:39 04/22/19 24 04/23/2023 CBC WITH DIFFE RENTI AL/PL ATELE T WBC 10.6 x10e3 /uL 3.4-10 .8 Not Available [facility] ([facility]) [address] [facility] [place], [address], 04/23/2023 07:14:40 04/22/19 24 04/23/2023 CBC WITH DIFFE RENTI AL/PL ATELE T RBC 4.72 x10e6 /uL 3.77-5 .28 Not Available [facility] ([facility]) [address] [facility] [place], [address], 04/23/2023 07:14:40 04/22/19 24 04/23/2023 CBC WITH DIFFE RENTI AL/PL ATELE T hemoglobin 13.5 g/dL 11.1-1 5.9 Not Available [facility] ([facility]) [address] [facility], [place], [address], 04/23/2023 07:14:40 04/22/19 24 04/23/2023 CBC WITH DIFFE RENTI AL/PL ATELE T hematocrit 40.8 % 34.0-4 6.6 Not Available [facility] ([facility]) [address] [place], [address], 04/23/2023 07:14:40 04/22/19 24 04/23/2023 CBC WITH DIFFE RENTI AL/PL ATELE T MCV 86 fL 79-97 Not Available [facility] ([facility]) [address] [facility], [place], [address], 04/23/2023 07:14:40 04/22/19 24 04/23/2023 CBC WITH DIFFE RENTI AL/PL ATELE T MCH 28.6 pg 26.6-3 3.0 Not Available [facility] ([facility]) [address] [place], [address], 04/23/2023 07:14:40 04/22/19 24 04/23/2023 CBC WITH DIFFE RENTI AL/PL ATELE T MCHC 33.1 g/dL 31.5-3 5.7 Not Available [facility] ([facility]) [address] [place], [address], 04/23/2023 07:14:40 04/22/19 24 04/23/2023 CBC WITH DIFFE RENTI AL/PL ATELE T RDW 13.8 % 11.7-1 5.4 Not Available [facility] ([facility]) [address] [place], [address], 04/23/2023 07:14:40 04/22/19 24 04/23/2023 CBC WITH DIFFE RENTI AL/PL ATELE T platelets 315 x10e3 /uL 150-45 0 Not Available [facility] ([facility]) [address] [facility], [place], [address], 04/23/2023 07:14:40 04/22/19 24 04/23/2023 CBC WITH DIFFE RENTI AL/PL ATELE T neutrophils 62 % notest ab. Not Available [facility] ([facility]) [address] [facility], [place], [address], 04/23/2023 07:14:40 04/22/19 24 04/23/2023 CBC WITH DIFFE RENTI AL/PL ATELE T lymphs 29 % notest ab. Not Available [facility] ([facility]) [address] [facility], [place], [address], 04/23/2023 07:14:40 04/22/19 24 04/23/2023 CBC WITH DIFFE RENTI AL/PL ATELE T monocytes 8 % notest ab. Not Available [facility] ([facility]) [address] [facility], [place], [address], 04/23/2023 07:14:40 04/22/19 24 04/23/2023 CBC WITH DIFFE RENTI AL/PL ATELE T eos 1 % notest ab. Not Available [facility] ([facility]) [address] [facility], [place], [address], 04/23/2023 07:14:40 04/22/19 24 04/23/2023 CBC WITH DIFFE RENTI AL/PL ATELE T basos 0 % notest ab. Not Available [facility] ([facility]) [address] [facility], [place], [address], 04/23/2023 07:14:40 04/22/19 24 04/23/2023 CBC WITH DIFFE RENTI AL/PL ATELE T neutrophils (absolute) 6.5 x10e3 /uL 1.4-7. 0 Not Available [facility] ([facility]) [address] [facility], [place], [address], 04/23/2023 07:14:40 04/22/19 24 04/23/2023 CBC WITH DIFFE RENTI AL/PL ATELE T lymphs (absolute) 3.0 x10e3 /uL 0.7-3. 1 Not Available [facility] ([facility]) [address] [facility], [place], [address], 04/23/2023 07:14:40 04/22/19 24 04/23/2023 CBC WITH DIFFE RENTI AL/PL ATELE T monocytes(ab solute) 0.9 x10e3 /uL 0.1-0. 9 Not Available [facility] ([facility]) [address] [facility], [place], [address], 04/23/2023 07:14:40 04/22/19 24 04/23/2023 CBC WITH DIFFE RENTI AL/PL ATELE T eos (absolute) 0.1 x10e3 /uL 0.0-0. 4 Not Available [facility] ([facility]) [address] [facility], [place], [address], 04/23/2023 07:14:40 04/22/19 24 04/23/2023 CBC WITH DIFFE RENTI AL/PL ATELE T baso (absolute) 0.0 x10e3 /uL 0.0-0. 2 Not Available [facility] ([facility]) [address] [place], [address], 04/23/2023 07:14:40 04/22/19 24 04/23/2023 CBC WITH DIFFE RENTI AL/PL ATELE T immature granulocytes 0 % notest ab. Not Available [facility] ([facility]) [address] [place], [address], 04/23/2023 07:14:40 04/22/19 24 04/23/2023 CBC WITH DIFFE RENTI AL/PL ATELE T immature grans (abs) 0.0 x10e3 /uL 0.0-0. 1 Not Available [facility] ([facility]) [address] [facility], [place], [address], 04/23/2023 07:14:40 04/22/19 24 04/23/2023 TSH+F REE T4 TSH 1.020 uIU/m L 0.450- 4.500 Not Available [facility] ([facility]) [address] [place], [address], 04/23/2023 16:14:54 04/22/19 24 04/23/2023 TSH+F REE T4 T4,free(dire ct) 1.06 NG/dL 0.82-1 .77 Not Available [facility] ([facility]) [address] [facility], [place], [address], 04/23/2023 16:14:54 04/22/19 24 04/23/2023 HEMOG LOBIN A1C hemoglobin A1C 6.1 % 4.8-5. 6 above high normal Predi abete s: 5.7 - 6.4 Diabe seth: >6.4 Glyce mario contr ol for adult s with diabe seth: <7.0 Not Available [facility] ([facility]) [address] [facility], [place], [address], 04/23/2023 16:14:55 04/22/19 24 04/23/2023 HCG,B ETA SUBUN IT, QNT HCG,beta subunit,qnt, serum <1 mIU/m L Femal e (Non- pregn ant) 0 - 5 (Post menop ausal ) 0 - 8 Femal e (Preg nant) Weeks of Gesta tion 3 6 - 71 4 10 - 750 5 845 - 9166 6 102 - 61572 7 7122 -2456 63 8 41273 -0987 71 9 36544 -2920 10 10 33697 -4779 77 12 88913 -2106 12 14 47085 - 80077 15 47426 - 15852 16 0648 - 99506 17 4415 - 25634 18 6531 - 40963 Mars ECLIA metho dolog y Not Available [facility] ([facility]) [address] [place], [address], 04/23/2023 16:14:55 04/22/19 24 04/23/2023 PROLA CTIN prolactin 5.8 NG/mL 4.8-33 .4 Not Available [facility] ([facility]) [address] [place], [address], 04/23/2023 16:14:56 04/22/19 24 04/23/2023 ESTRA DIOL estradiol 97.5 pg/mL Adult Femal e Range Folli cular phase 12.5 - 166.0 Ovula tion phase 85.8 - 498.0 Lutea l phase 43.8 - 211.0 Postm enopa usal <6.0 - 54.7 Pregn anne-marie 1st trime ster 215.0 - >4300 .0 Mars ECLIA metho dolog y Not Available [facility] ([facility]) [address] [place], [address], 04/23/2023 16:14:57 04/22/19 24 04/23/2023 FSH AND LH LH 6.6 mIU/m L Adult Femal e Range Folli cular phase 2.4 - 12.6 Ovula tion phase 14.0 - 95.6 Lutea l phase 1.0 - 11.4 Postm enopa usal 7.7 - 58.5 Not Available [facility] ([facility]) [address] [place], [address], 04/23/2023 16:14:58 04/22/19 24 04/23/2023 FSH AND LH FSH 4.1 mIU/m L Adult Femal e Range Folli cular phase 3.5 - 12.5 Ovula tion phase 4.7 - 21.5 Lutea l phase 1.7 - 7.7 Postm enopa usal 25.8 - 134.8 Not Available [facility] ([facility]) [address] [facility], [place], [address], 04/23/2023 16:14:58 04/22/19 24 04/24/2023 IGP, APTIM A HPV, RFX 16/18 ,45 HPV aptima Negati ve negati ve This nucle ic acid ampli ficat ion test detec ts fourt een high- risk HPV types (16,1 8,31, 33,35 ,39,4 5,51, 52,56 ,58,5 9,66, 68) witho ut diffe renti ation . Not Available [facility] ([facility]) [address] [facility], [place], [address], 04/25/2023 16:14:51 04/22/19 24 04/25/2023 IGP, APTIM A HPV, RFX 16/18 ,45 diagnosis: Commen t NEGAT MARRY FOR INTRA EPITH ELIAL LESDAWIT N OR HILARY KWOK . Not Available [facility] ([facility]) [address] [facility], [place], [address], 04/25/2023 16:14:51 04/22/19 24 04/25/2023 IGP, APTIM A HPV, RFX 16/18 ,45 specimen adequacy: Commen t Satis facto ry for evalu ation . Endoc ervic al and/o r squam ous metap lasti c cells (endo cervi jennifer compo nent) are prese nt. Not Available [facility] ([facility]) [address] [facility], [place], [address], 04/25/2023 16:14:51 04/22/19 24 04/25/2023 IGP, APTIM A HPV, RFX 16/18 ,45 clinician provided ICD10: Commen t Z01.4 19 N92.6 Z68.3 2 Not Available [facility] ([facility]) [address] [place], [address], 04/25/2023 16:14:51 04/22/19 24 04/25/2023 IGP, APTIM A HPV, RFX 16/18 ,45 performed by: Rossy Orozco (ASCP ) Not Available [facility] ([facility]) [address] [place], [address], 04/25/2023 16:14:51 04/22/19 24 04/25/2023 IGP, APTIM A HPV, RFX 16/18 ,45 . . Not Available [facility] ([facility]) [address] [place], [address], 04/25/2023 16:14:51 04/22/19 24 04/25/2023 IGP, APTIM A HPV, RFX 16/18 ,45 note: Molina mcclellan The Pap smear is a scree devan test desausten ott to aid in the detec tion of paolo ligna nt and malig nant condi tions of the uteri ne cervi x. It is not a diagn ostic proce dure and shoul d not be used as the sole means of detec ting cervi jennifer cance r. Both false -posi tive and false -nega tive repor ts do occur . Not Available [facility] ([facility]) [address] [place], [address], 04/25/2023 16:14:51 04/22/19 24 04/25/2023 IGP, APTIM A HPV, RFX 16/18 ,45 test methodology: Molina [email or web address] This liqui d based ThinP rep(R ) pap test was scree namrata with the use of an image guide court styles Not Available [facility] ([facility]) [address] [place], [address], 04/25/2023 16:14:51 04/22/19 24 04/25/2023 IGP, APTIM A HPV, RFX 16/18 ,45 HPV genotype reflex Commen t Crite patricia not met, HPV Genot ype not perfo rmed. Not Available [facility] ([facility]) [address] [facility], [place], [address], 04/25/2023 16:14:51 01/21/20 18 01/20/2018 US, pelvi s, trans abdom inal + trans vagin al No observ ation record ed. [email or web address] Not Available 2017 09:54:11 04/22/19 24 07/30/2018 CT, abdom en + pelvi s, w/ contr ast No observ ation record ed. [email or web address] Not Available 2023 12:01:07 04/22/19 24 06/20/2020 US, abdom en No observ ation record ed. [email or web address] Not Available 2023 12:00:36 05/19/19 24 05/16/2023 US, pelvi s, trans abdom inal + trans vagin al No observ ation record ed. [email or web address] [facility] ([facility]) Scheduling [address] [place], [address], 06/05/2023 11:54:20 05/24/19 24 05/24/2023 MAMMO , diagn ostic , tomos ynthe sis, bilat eral No observ ation record ed. [email or web address] [facility] ([facility]) Scheduling [address] [place], [address], 05/28/2023 09:52:50 Result Notes None recorded. Problems Name Problem SNOMED Code Status Onset Date Resolution Date Notes Provider Name and Address Organization Details Recorded Time Urinary tract infectious disease 48668405 Active Rina marques [facility] 5 10:26:26 Cyst of skin 293654047 Active Rina marques [facility] 5 09:27:56 Problem Notes None recorded. Procedures Surgical History Date Name Laterality Status Provider Name and Address Organization Details Recorded Time 8 Date of Last Pap Smear completed Katelyn [place] - [facility] 01/06/2018 11:37:40 Endometrial Ablation completed Katelyn BendermonGLORIA chambers [place] - [facility] 04/22/2023 14:27:15 Knee arthroscopy/shantanu cinthia completed ADRIANA Hopper Attn: Accounting,[address] [facility], [place], [address], [place] [facility] 04/22/2023 15:26:57 Imaging Results Imaging Date Name Status LastModified by Organization Details LastModified Time 01/20/2018 US, pelvis, transabdominal + transvaginal completed [email or web address] Information not available 01/27/2018 09:54:11 07/30/2018 CT, abdomen + pelvis, w/ contrast completed Information not available 04/22/2023 12:01:07 06/20/2020 US, abdomen completed Information n ot available 04/22/2023 12:00:36 05/16/2023 US, pelvis, transabdominal + transvaginal completed [email or web address] [facility] ([facility]) Scheduling [address] [place], [address], 06/05/2023 11:54:20 05/24/2023 MAMMO, diagnostic, tomosynthesis, bilateral completed [email or web address] [facility] ([facility] Scheduling [address] [place], [address], 05/28/2023 09:52:50 Procedure Notes None recorded. Medical Equipment None Reported. Allergies Allergen ID Allergen Name Allergen Category Reaction Reaction Severity Criticality Documentation Date Start Date Code Code System Note Provider Name and Address Organization Details Recorded Time 28974 Augmentin medicatio n vomiting Not available Not available 03/24/2014 81281 2 RxNorm Not Available Not Available Not Available Medications Name Sig Start Date Stop Date Status Note LastModified by Organization Details LastModified Time Prescriptio n - Prior Authorizati on Request 04/22 completed Not Available Not Available Not Available carisoprodo l 350 mg tablet 03/18 completed Not Available Not Available Not Available cyclobenzap rine 10 mg tablet 04/22 completed Not Available Not Available Not Available cetirizine 10 mg tablet 04/22 completed Not Available Not Available Not Available azithromyci n 250 mg tablet 03/18 completed Not Available Not Available Not Available aspirin 325 mg tablet TAKE 1 TABLET BY MOUTH DAILY FOR 14 DAYS. 04/22 completed Not Available Not Available Not Available Lidocaine Viscous 2 % mucosal solution 04/22 completed Not Available Not Available Not Available benzonatate 200 mg capsule TAKE 1 CAPSULE BY MOUTH 3 TIMES DAILY NEEDED FOR COUGH FOR UP TO 14 DAYS. 04/22 completed Not Available Not Available Not Available hydrocodone 5 mg-acetamin ophen 325 mg tablet TAKE 1 TO 2 TABLETS BY MOUTH EVERY 8 HOURS NEEDED FOR MODERATE OR MORE SEVERE PAIN 04/22 completed Not Available Not Available Not Available meloxicam 15 mg tablet TAKE 1 TABLET BY MOUTH EVERY DAY 04/22 completed Not Available Not Available Not Available phenazopyri dine 200 mg tablet Take 1 tablet 3 times a day by oral route for 2 days. 03/18 completed Not Available Not Available Not Available ondansetron HCl 4 mg tablet TAKE 1 TABLET BY MOUTH EVERY 8 HOURS NEEDED FOR NAUSEA 04/22 completed Not Available Not Available Not Available prednisone 20 mg tablet TAKE 1 TABLET BY MOUTH EVERY DAY 04/22 completed Not Available Not Available Not Available metronidazo le 500 mg tablet Take 1 tablet every 12 hours by oral route for 7 days. 04/22 completed Not Available Not Available Not Available ciprofloxac in 250 mg tablet Take 1 tablet every 12 hours by oral route for 3 days. 03/18 completed Not Available Not Available Not Available ciprofloxac in 500 mg tablet Take 1 tablet every 12 hours by oral route for 5 days. 04/22 completed Not Available Not Available Not Available sulfamethox azole 800 mg-trimetho prim 160 mg tablet 04/22 completed Not Available Not Available Not Available hydrocodone 10 mg-acetamin ophen 325 mg tablet TAKE 1 TABLET BY MOUTH EVERY 6 HOURS NEEDED FOR PAIN 04/22 completed Not Available Not Available Not Available doxycycline monohydrate 100 mg tablet TAKE 1 TABLET BY MOUTH TWICE A DAY FOR 10 DAYS 04/22 completed Not Available Not Available Not Available tramadol 50 mg tablet 03/18 completed 01/11 Not Available Not Available Not Available triamcinolo ne acetonide 0.1 % topical cream APPLY TOPICALLY TWICE A DAY FOR 7 DAYS 04/22 completed Not Available Not Available Not Available phentermine 30 mg capsule TAKE 1 CAPSULE BY MOUTH EVERY DAY 04/22 completed Not Available Not Available Not Available triamcinolo ne acetonide 0.1 % topical ointment 04/22 completed Not Available Not Available Not Available docusate sodium 100 mg capsule TAKE 1 CAPSULE BY MOUTH TWICE A DAY 04/22 completed Not Available Not Available Not Available gabapentin 300 mg capsule 04/22 completed Not Available Not Available Not Available Cheratussin AC 10 mg-100 mg/5 mL oral liquid 03/18 completed Not Available Not Available Not Available ibuprofen 600 mg tablet active Not Available Not Available Not Available methylpredn isolone 4 mg tablets in a dose pack TAKE 6 TABLETS ON DAY 1 DIRECTED ON PACKAGE AND DECREASE BY 1 TAB EACH DAY FOR A TOTAL OF 6 DAYS 04/22 completed Not Available Not Available Not Available albuterol sulfate HFA 90 mcg/actuati on aerosol inhaler TAKE 1-2 PUFFS BY INHALATIO N EVERY 4 HOURS NEEDED FOR WHEEZING OR COUGH. active Not Available Not Available No t Available cefdinir 300 mg capsule 04/22 completed Not Available Not Available Not Available fluticasone propionate 50 mcg/actuati on nasal spray,suspe nsion SPRAY 1-2 SPRAYS IN EACH NOSTRIL EVERY DAY DIRECTED 04/22 completed Not Available Not Available Not Available naproxen 500 mg tablet 03/18 completed Not Available Not Available Not Available nitrofurant oin monohydrate /macrocryst als 100 mg capsule Take 1 capsule every 12 hours by oral route for 7 days. 04/22 completed Not Available Not Available Not Available lidocaine 5 % topical ointment active Not Available Not Available Not Available Qvar RediHaler 80 mcg/actuati on HFA breath activated aerosol active Not Available Not Available Not Available Vitals Date Recorded Body height Body mass index (BMI) Body weight Systolic blood pressure Diastolic blood pressure Provider Name and Address Organization Details Last Updated DateTime 01/06/2018 162.56 cm 32.8 kg/m2 71686.14 g 110 mm[Hg] 68 mm[Hg] Katelyn Werner [place] - [facility] 11:40:00 Date Recorded Body height Body mass index (BMI) Body weight Systolic blood pressure Diastolic blood pressure Provider Name and Address Organization Details Last Updated DateTime 01/29/2018 162.56 cm 33.6 kg/m2 44920.1 g 112 mm[Hg] 70 mm[Hg] Katelyn Werner [facility] 8 09:51:23 Date Recorded Body height Body mass index (BMI) Body weight Systolic blood pressure Diastolic blood pressure Provider Name and Address Organization Details Last Updated DateTime 03/18/2018 162.56 cm 34 kg/m2 36522.29 g 120 mm[Hg] 70 mm[Hg] Katelyn Werner [facility] 9 09:36:27 Date Recorded Body temperature Provider Name a sc Address Organization Details Last Updated DateTime 03/18/2018 98.3 [degF] ADRIANA Hopper Attn: Accounting,[address] [place], [address], [facility] 03/18/2018 10:10:03 Date Recorded Body height Body mass index (BMI) Body weight Systolic blood pressure Diastolic blood pressure Provider Name and Address Organization Details Last Updated DateTime 08/04/2018 162.56 cm 33.5 kg/m2 91107.51 g 110 mm[Hg] 70 mm[Hg] Katelyn Werner [facility] 9 16:37:50 Date Recorded Body height Body mass index (BMI) Body weight Systolic blood pressure Diastolic blood pressure Provider Name and Address Organization Details Last Updated DateTime 04/22/2023 162.56 cm 36.8 kg/m2 01886.92 g 120 mm[Hg] 78 mm[Hg] Katelyn Werner Nasir [facility] 4 14:12:21 Social History Question Answer Notes LastModified by Organizat ion Details LastModified Time Tobacco Smoking Status Never Smoker TIFFANI Funez, [facility] 03/24/2014 08:59:00 What Is Your Level Of Alcohol Consumption? None Information not available 04/22/2023 What Is Your Level Of Caffeine Consumption? Moderate Soda Information not available 03/24/2014 What Type Of Diet Are You Following? REGULAR [email or web address] Information not available 03/24/2014 Which Illicit Or Recreational Drugs Have You Used? Marijuana Information not available 04/22/2023 What Was The Date Of Your Most Recent Tobacco Screening? 04/22/2023 Information not available 04/22/2023 General Stress Level Low Information not available 03/24/2014 Do You Use Any Illicit Or Recreational Drugs? Yes Information not available 04/22/2023 Has Tobacco Cessation Counseling Been Provided? Yes Information not available 04/22/2023 On What Date Was Tobacco Cessation Counseling Provided? 04/22/2023 Information not available 04/22/2023 Sex: Female Functional Status Question Answer Note LastModified by Organizat ion Details LastModified Time What is your exercise level? Occasional [email or web address] Information not available 03/24/2014 Mental Status None recorded. Family History Relationship Description Onset Age of this Age Resolved Age Notes LastModified by Organization Details LastModified Time Mother Asthma [email or web address] Not available 03/24/2014 08:59:01 Mother Essential hypertension [email or web address] Not available 10/2014 08:59:01 Mother Renal failure syndrome [email or web address] Not available 2017 11:38:35 Mother Heart disease [email or web address] Not available 2017 11:38:50 Paternal Grandmother Malignant tumor of breast 37 [email or web address] Not available 2023 15:26:49 Medical History Condition Response Coronary Artery Disease N Other N Atrial Fibrillation N High Blood Pressure N Depression N COPD N Blood Clots N Anxiety Disorder N Muscle, Joint, or Bone Problems N Acid Reflux (GERD) N Cancer N Stroke N Headaches N Kidney or Bladder Problems N Skin Problems N Asthma Y Allergies N Hepatitis N High Cholesterol N Liver Disease N Thyroid Problems N GI Problems N Anemia N Heart Attack ([place]) N Diabetes N Seizures/Epilepsy N Heart Failure N Osteoporosis N Gynecological History Statement/Question Response Abnormal Pap Yes Flow Moderate Sexually Active? Y Menses Monthly Y STIs/STDs N Date of Last Pap Smear 01/06/2018 Duration of Flow (days) 2 Sexual Problems? N Current Control Method Tubal Ligat ion LMP Definite Obstetrics History GPAL:G 4 P 3 0 1 3 Type Value Full Term 3 Spontaneous 1 Living 3 Total 4 Past Encounters Encounter ID Performer Location Encounter Start Date Encounter Closed Date Diagnosis/Indication Diagnosis SNOMED-CT Code Diagnosis ICD10 Code Diagnosis Note [id number] Rina Paulino Raymond (Adult Med) [address] [facility] [place] [address] 03/24/2014 08:45:54 03/24/2014 09:17:11 Cyst of skin 993742586 Will watch and monitor for now. If bothersome , can refer to surgeon- but patient not interested at this time. Patient aware of s/s infection redness, warmth, discharge and agrees to call office if any of these symptoms develop. [id number] TIFFANI Funez (Adult Med) [address] [facility] [place] [address] 04/22/2014 09:29:24 04/22/2014 12:43:18 Urinary tract infectious disease 53268861 Increase water intake. Decrease caffeine. Gentle cleansing and no soaking in 'dirty' water. [id number] ADRIANA Hopper 14 OB [address] [facility] [address] [place] [address] 01/06/2018 11:05:22 01/07/2018 15:03:37 Gynecologic examination 64013148 Z01.419 -Educated on the importance of SBE and awareness. -Discussed the importance of cervical cancer screenings -Educated osteoporos is prevention including calcium rich foods, weight bearing exercise. -Discussed the importance of exercise. -Nutrition discussed and the importance of a diet rich in fruits, vegetable, whole grains, and lean proteins. -Counseled regarding prevention of STD's and screening options, condom use and prevention . -Advised avoidance of tobacco, alcohol, and drugs. -Discussed sun safety and the importance of sunscreen. Pain in pelvis 07386900 R10.2 UA negative for UTI. Nuswab sent. Pelvic US ordered. Pt educated to call office if symptoms worsen and if severe go to ER. Follow up after pelvic US Body mass index 30+ - obesity 451268516 Z68.32 Pt counseled on obesity management . Pt not interested in dietitian referral for medication . Pt educated on lifestyle modificati ons. Pt educated on increased risks of obesity and need to follow up with PCP for check up and blood work. Vaginal discharge 234371 006 N89.8 Incidental finding. Educated patient on vulvar hygiene and use condoms during sex. swab obtained and sent to lab. [id number] ADRIANA Hopper [address] [place] [address] 01/29/2018 09:34:23 01/29/2018 16:48:41 Pain in pelvis 47614480 R10.2 UA negative for UTI. Nuswab negative for gonorrhea, chlamydia trich. Pelvic US show small 2 cm fibroid but otherwise normal. Pt referred to pelvic pain specialist . Pt educated okay to take OTC tylenol or ibuprofen for pain as directed. Pt educated to call office if symptoms worsen and if severe go to ER. Pt given number to call and schedule appt with Dr. Gracia [id number] ADRIANA Hopper [address] [place] [address] [place] [address] 03/18/2018 09:24:28 03/23/2018 09:56:44 Low back pain 267226441 M54.5 Pt reports chronic back pain and pain bilateral. Pt low probabilit y for pyelonephr itis or kidney stone. Pt treated for empiricall y with ciprofloxa damon. Pt notified to follow up in 48 hours and given ER precaution s. Pt educated on UTI management and warning signs. Pt notified to continue follow up with PCP for chronic back pain. Urinary tr act infectious disease 65982062 N39.0 Pt treated for empiricall y with ciprofloxa damon.Pt low probabilit y for pyelonephr itis or kidney stone. Pt notified to follow up in 48 hours and given ER precaution s. Pt educated on UTI management and warning signs. LMP 03/05/18 and pt has had tubal ligation for over 7 years so no urine test completed at this time. Increased frequency of urination 490739320 R35.0 UA positive for nitrates. Pt treated for UTI. Follow up in 48 hours. [id number] ADRIANA Hopper [address] [place] [address] 08/04/2018 16:32:43 08/05/2018 08:32:02 Cyst of ovary 07191558 N83.209 Follow up US ordered and order given to patient completed with in the next 4-6 weeks. Pt also seeing Dr. Gracia for chronic pelvic pain. Pt notified to follow up with Dr. Gracia as well. Pt given ER precaution s. [id number] ADRIANA Hopper 14 OB 4 [facility] [address] [place] [address] 04/22/2023 13:59:17 04/24/2023 14:38:00 Routine gynecologic examination done [id number] 9101 Z01.419 -Educated on the importance of SBE and awareness. -Discussed the importance of cervical cancer screenings -Educated osteoporos is prevention including calcium rich foods, weight bearing exercise.- Discussed the importance of exercise.- Nutrition discussed and the importance of a diet rich in fruits, vegetable, whole grains, and lean proteins.- Counseled regarding prevention of STD's and screening options, condom use and prevention .-Advised avoidance of tobacco, alcohol, and drugs.-Dis cussed sun safety and the importance of sunscreen. Irregular periods 685573 07 N92.6 only missed one menses in the last year. Labs ordered. Pelvic US ordered related to history of ovarian cyst. pt advised to track menses and follow up in 3-6 months. Body mass index 30+ - obesity 683576423 Z68.32 Pt educated on risks and importance of lifestyle modificati ons. Pt reports will continue to follow up with PCP (pt sees Dr. Anderson). Pt opts for labs and will follow up with PCP Cyst of ovary 17170944 N 83.209 Follow up Pelvic US ordered. pt educated on importance of ofllow up. Pain of left breast 1010 174542 N64.4 Imaging ordered. Pt referred to genetic counselor and breast surgeon. Pt educated on importance of follow up. Pt educated on lifestyle modificati ons and importance of good supportive bra. Family his tory of breast cancer [id number] Z80.3 Referral ordered. pt educate don importance of follow up. Positive s creening for depression on PHQ-9 (Patient Health Questionnaire 9) [id number] Z13.31 Pt educated on resources. Pt declined. Follow up with PCP. Health Concerns Section Related Observation LastModified by Organization Detai ls LastModified Time None Recorded Concern Status LastModified by Organization Details LastModified Time None Recorded Advance Directives Directive None Recorded Payers Encounter Date Sequence Insurance Name Policy Number Policy Paz Covered Member ID Paz Member ID Guarantor Name 01/06/2018 1 [facility] (MEDICAID HMO) [id number] Ella Oneida [id number] Ella Oneida 01/29/2018 1 [facility] (MEDICAID HMO) [id number] Ella Oneida [id number] Ella Oneida 03/18/2018 1 [facility] (MEDICAID HMO) [id number] Ella Oneida [id number] Ella Oneida 08/04/2018 1 [facility] (MEDICAID HMO) [id number] Ella Oneida [id number] Ella Oneida 04/22/2023 1 [facility] (MEDICAID HMO) [id number] Ella Oneida [id number] Ella Oneida Notes Date Note Type Note Provider Name and Address Organization Details Recorded Time 01/06/2018 text/html Annual GYNReport ed bypatient.Menstrual cycle:Normal menses Urinary symptoms:No hematuria; No incontinence Vulva:No genital lesion Vagina:Normal vaginal discharge Breast:No breast pain; No breast lump; No nipple discharge Current Contraception:Tubal ligation Sexual complaints:No sexual complaints; No pain during intercourse; Normal libido Menopausal Symptoms:No menopausal symptoms; Normal vaginal lubrication Psychological symptoms:No depression; No anxiety; No PMDD Preventive measures:Encourage self breast examination; Encourage regular exercise; Encourage no tobacco use; Followed with Q3 year pap smear and high risk HPV typing; History of abnormal pap smear/cervical dysplasiaPelvic PainReported bypatient.Location[facility] Onset/Timin year Duration:intermittent Quality:sharp Severity:moderate Context:unrelated to menstrual cycle Alleviating Factors:NSAIDS Aggravating Factors:none Associated Symptoms:no abdominal pain; no back pain; no chills; no constipation; no diarrhea; no vaginal discharge; no pain with urination; normal emptying of bladder; no feelings of urgency; no blood in the urine; normal libido; no fever; no nausea; no vomiting; no nocturia; no sexual abuse; no ectopic pregnancies; no endometriosis; no urinary frequency; no vaginal itching or irritation; no dyspareunia Pt here for annual well women exam. Pt has complaints of pelvic pain for the last year. ADRIANA Hopper Attn: Accounting,[address] [facility], [place], [address], [place] [facility] 01/06/2018 14:49:35 01/29/2018 text/html Pt here follow u p after pelvic US. Pelvic US was ordered related to intermittent pelvic pain for the last year. Nuswab was also completed at last visit and was negative for gonorrhea, chlamydia, and trichomonas. Pelvic US show small 2 cm fibroid on uterus, which is unlikely source of pain. Pt denies pain worsening since last visit. Pt denies any changes since her last visit. ADRIANA Hopper Attn: Accounting,[address] [facility], [place], [address], [place] [facility] 01/29/2018 11:03:34 03/18/2018 text/html Pt here related to possible UTI. Pt denies any fever or chills. Pt reports increased urination. Pt reports occasional bilateral low back pain. Pt reports she has chronic low back pain that is managed by her PCP dr. myers. Pt denies worsening of back pain since increased urination.Pt denies any hematuria. ADRIANA Hopper Attn: Accounting,[address] [facility], [place], [address], [place] [facility] 03/18/2018 10:33:57 08/04/2018 text/html Pt is here follo wing up after ER. Pt went to ER for pelvic pain and vomiting on 07/30/18. Pt was diagnosed with UTI and possible ruptured or hemorrhagic cyst related to small (15 mm) fluid containing structure in the right adnexal region. UPT negative ER and pt has BTL and partner has vasectomy. Pt's urine culture was positive for e. coli and pt was treated with macrobid. Pt reports urinary symptoms have resolved. Pt denies any more pain. Pt denies any abnormal vaginal bleeding. Pt denies any vomiting since ER. PT denies any fever or chills. H and H in ER negative for anemia. ADRIANA Hopper Attn: Accounting,[address] [facility], [place], [address], [place] [facility] 08/04/2018 17:11:30 04/22/2023 text/html Annual GYNReport ed bypatient.History:no gynecologic complaints Menstrual cycle:Pt reports menses normal regular but missed period in december. Pt would like hormones test. pt reports had monthly menses other than that. Urinary symptoms:No hematuria; No incontinence Vulva:No genital lesion Vagina:Normal vaginal discharge Breast:No breast pain; No breast lump; No nipple discharge Current Contraception:Satisfi ed with current contraception; Tubal ligation Sexual complaints:No sexual complaints; No pain during intercourse; Normal libido Menopausal Symptoms:No menopausal symptoms; Normal vaginal lubrication Psychological symptoms:No depression; No anxiety; No PMDD Preventive measures:Encourage self breast examination; Encourage regular exercise; Encourage no tobacco use; Encourage regular mammograms starting age 40; Followed with Q3 year pap smear and high risk HPV typingBreast PainReported bypatient.Location:le ft; lower outer quadrant Onset/Timing:>1 month Quality:aching Severity:moderate Associated Symptoms:no fever; no chills; no skin redness; no nipple discharge; no sore nipples; breasts not full, sore, unable to express milk; no breast swelling; no arm pain; no arm swelling; no chest pain; no malaise; no breast lump Pt is here for annual. Pt reports menses normal regular but missed period in december. Pt would like hormones tested. pt reports had monthly menses other than that. Pt does have history of uterine ablation over 10 years ago. Pt denies hot flashes or vaginal dryness. Pt reports pain in the left breast for the last few months. Pt reports comes and goes. Pt reports just learned her paternal grandmother at age 37 from breast cancer. Pt would like referral to breast surgeon and genetic counselor. Pt has history of ovarian cyst in 2019 but never completed follow up pelvic US. PHQ score 6. pt denies concerns. ADRIANA Hopper Attn: Accounting,[address] [facility], [place], [address], [facility] 04/22/2023 15:33:37 OBGyn Episode No OBEpisode recorded.
--- OUTSIDE RECORDS SUMMARY | 2024-06-21 08:21 | XMS_ITS | Encounter Summary ---
Author Organization [facility] Address [address] [place] [address] Phone Care Team Providers Care Licensing Manager Name Role Phone Nicanor Syed MD Unavailable [phone] Vignesh Maharaj MD Primary Care Provider [phone] Misa Garcia MD Unavailable Reason for Visit * Reason Onset Date Comments Vomiting 01/13/2021 food poison Encounter Details Date Type Department Care Team (Late st Contact Info) Description 01/15/2021 Nurse Triage [facility] [address] [place] [address] Vignesh Maharaj MD #[address] [address] Vomiting (food poison ) Social History Tobacco Use Types Packs/Day Years Used Date Smoking Tobacco: Never Smokeless Tobacco: Never Alcohol Use Standard Drinks/Week Comments Not Currently 0 (1 standard drink = 0.6 oz pur e alcohol) PHQ-2 Answer Date Recorded Total Score - Questions 1-9 0 12/15 Education Answer Date Recorded What is the highest level of school you have completed or the highest degree you have received? 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 No / Unsure 01/18/2021 10:17 AM CDT documented as of this encounter Miscellaneous Notes * Telephone Encounter - Yovana Milner RN - 01/15/2021 11:19 AM CDT S: vomiting / diarrhea- ? Food poisoning B started Sat night after eating some pulled pork that night. A: vomiting / diarrhea started Sat.night after eating pulled pork. Vomited over and over - still vomiting. Vomited 4 x this am Had fever yesterday -she is not sure how high. Fever gone now? Also has diarrhea -had 4 stools yesterday - 3 stools today so far -watery and no blood in her stools. Still urinating every 2 hours. Stomach still hurts. Feels worn out. R: advised should be evaluated in the ED - patient agreed. Reason for Disposition ??? SEVERE vomiting (e.g., 6 or more times/day) (Exception: patient sounds well, is drinking liquids, does not sound dehydrated, and vomiting has lasted less than 24 hours) Protocols used: [id number] * Telephone Encounter - Neena Atkinson - 01/15/2021 11:14 AM CDT Patient calling stating she thinks she was food poisoned during the weekend. States she has been throwing up and cannot get up from bed. States had a fever cannot keep anything down. documented in this encounter Plan of Treatment Upcoming Encounters Date Type Department Care Team (Late st Contact Info) Description 07/05/2024 4:00 PM CDT Office Visit [facility] - [facility] [address] [place] [address] Vignesh Maharaj MD #2 [facility] [address] [place] [address] documented as of this encounter Visit Diagnoses Not on filedocumented in this encounter Additional Health Concerns Infection Onset Date Last Indicated Resolved Time COVID - 19 Confirmed 02/20/2021 02/20/2021 021 12:16 AM [employer] Respiratory Rule Out - RPA 12/30/2022 12/30/2022 1 2:36 PM CDT COVID - 19 12/30/2022 12/30/2022 01/09/2023 12:1 6 AM CDT COVID - 19 07/04/2023 07/04/2023 07/04/2023 10:4 5 AM CDT Assessment Noted Time PHQ-9 Depression Total Score: 0 01/02/20 21 2:00 PM CDT documented as of this encounter Care Teams Licensing Manager Relationship Specialty Start Date End Date Vignesh Maharaj MD [address] [address] [address] PCP - General Family Medicine 10/13/19 Nicanor Syed MD [address] [place], [place] [address]MICHAEL [address], [address] [place] [address] Consulting Physician Obstetrics & Gynecology 11/03/17 Misa Garcia MD #2 [facility] [address] [place] [address] Consulting Physician Endocrinology 07/22/23 documented as of this encounter
--- OUTSIDE RECORDS SUMMARY | 2024-06-21 08:21 | XMS_ITS | Clinical Summary ---
Author Organization [facility] Address [address] [place] [address] Phone Care Team Providers Care Cdl Team Truck Driver Name Role Phone Nicanor Syed MD Unavailable [phone] Vignesh Maharaj MD Primary Care Provider [phone] Misa Garcia MD Unavailable Allergies Active Allergy Reactions Criticality Noted Date Comments Amoxicillin-Pot Clavulanate Diarrhea,Vomiting 03/18/2011 Vomiting and hives Medications cetirizine (ZyrTEC) 10 MG Tablet Active IBUPROFEN PO Take by mouth. Ac tive albuterol 108 (90 Base) MCG/ACT Aerosol SolutionIndicati ons:Mild intermittent asthma without complication take 1-2 Puffs by inhalation every 4 hours as needed for Wheezing or Cough. 8.5 g 1 5 Active metoprolol Succinate (TOPROL-XL) 25 MG TABLET SR 24 HR Take 1 Tablet by mouth daily. 90 Tablet 3 5 Active HYDROcodone-acet aminophen (NORCO) 10-325 MG TabletIndication s:Chronic bilateral low back pain with bilateral sciatica Take 1 Tablet by mouth every 8 hours as needed for Moderate or more severe pain. 60 Tablet 5 Active HYDROcodone-acet aminophen (NORCO) 10-325 MG TabletIndication s:Chronic bilateral low back pain with bilateral sciatica Take 1 Tablet by mouth every 8 hours as needed for Moderate or more severe pain. 60 Tablet 5 025 Discontin ued(Reord er) Active Problems Problem Noted Date Diagnosed Date Acute pain of left shoulder 10/23/2022 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 Prediabetes 06/16/2020 Obesity (BMI 35.0-39.9 without comorbidity) 05/17 Numbness and tingling of both lower extremities 04/06/2019 Physical exam, annual (Adult) 11/03/2017 Mild intermittent asthma without complication Chronic bilateral low back pain with bilateral s ciatica 11/03/2017 Numbness and tingling in right hand 11/03/2017 Resolved Problems Problem Noted Date Diagnosed Date Resolved Date Severe persistent asthma with exacerbation 06/14/2020 06/16/2020 Hypokalemia 06/14/2020 06/16/2020 Acute bronchitis 06/14/2020 06/16/2020 Environmental and seasonal allergies 06/14/2020 06/16/2020 Encounters Date Type Department Care Team Description 06/14/2024 4:15 PM CDT Physical [facility] [address], [place] [address] [place] [phone] Norma March APRN, Marlen Mistry, PT Chronic bilateral low back pain with bilateral sciatica (Primary Dx) Discharge Disposition: Discharged to home or Selfcare 06/14/2024 Travel 06/09/2024 4:15 PM CDT Physical Therapy [facility] [address] [place] [address] [place] [phone] Norma March APRN, Marlen Mistry, PT Chronic bilateral low back pain with bilateral sciatica (Primary Dx) Discharge Disposition: Discharged to home or Selfcare 06/07/2024 4:15 PM CDT Physical Therapy [facility] [address] [place] [address] [place] [phone] Norma March APRN, CAR TRACER Marlen Allen, PT Chronic bilateral low back pain with bilateral sciatica (Primary Dx) Discharge Disposition: Discharged to home or Selfcare 06/07/2024 Travel 06/02/2024 Results [facility] [address] [facility] [address] Norma March, PERSONAL BANKING ADVISOR, CAR TRACER 05/28/2024 Refill [facility] [address] [facility] [address] Vignesh Maharaj MD Medication Refill 05/27/2024 4:15 PM CDT Physical Therapy [facility] [address] [place] [address] [place] [phone] Norma March, PERSONAL BANKING ADVISOR, CAR TRACER Marlen Allen, PT Chronic bilateral low back pain with bilateral sciatica (Primary Dx) Discharge Disposition: Discharged to home or Selfcare 05/26/2024 Travel 05/18/2024 4:00 PM ELECTROMECHANICAL ENGINEER Physical Therapy [facility] [address] [place] [address] [place] [phone] Norma March, PERSONAL BANKING ADVISOR, CAR TRACER Arnold Marquis, DIRECTOR SPECIAL EDUCATION Chronic bilateral low back pain with bilateral sciatica (Primary Dx) Discharge Disposition: Discharged to home or Selfcare 05/18/2024 Travel 05/17/2024 Telephone [facility] [address] [place] [address] Vignesh Maharaj MD Prior Authorization 05/14/2024 [facility]ill [facility] [address] [place] [address] Vignesh Maharaj MD Medication Refill 05/11/2024 Telephone [facility] [address] [place] [address] Vignesh Maharaj MD 05/11/2024 Telephone [facility] [address] [facility] [address] Vignesh Maharaj MD Results 05/11/2024 Travel 05/10/2024 4:15 PM ELECTROMECHANICAL ENGINEER Physical Therapy [facility] [address] [place] [address] [place] [address] Norma March, PERSONAL BANKING ADVISOR, Marlen Mistry, PT Chronic bilateral low back pain with bilateral sciatica (Primary Dx) Discharge Disposition: Discharged to home or Selfcare 05/10/2024 Travel 05/06/2024 Refill [facility] [address] [facility] [address] Vignesh Maharaj MD Medication Refill 05/05/2024 Travel 04/30/2024 2:45 PM ELECTROMECHANICAL ENGINEER Physical Therapy [facility] [address] [place] [address] [place] [address] Norma March, PERSONAL BANKING ADVISOR, CAR TRACER Arnold Marquis R, DIRECTOR SPECIAL EDUCATION Chronic bilateral low back pain with bilateral sciatica (Primary Dx) Discharge Disposition: Discharged to home or Selfcare 04/30/2024 Travel 04/16/2024 Plan of Care Documentation [facility] [address] [place] [address] [place] [address] 04/15/2024 4:15 PM ELECTROMECHANICAL ENGINEER Physical Therapy [facility] [address] [place] [address] [place] [address] Norma March, PERSONAL BANKING ADVISOR, Marlen Mistry, PT Chronic bilateral low back pain with bilateral sciatica Discharge Disposition: Discharged to home or Selfcare 04/15/2024 Travel 04/12/2024 Telephone [facility] [address] [facility] [address] Vignesh Maharaj MD Prior Authorization 04/08/2024 1:54 PM ELECTROMECHANICAL ENGINEER - 04/08/2024 11:59 PM ELECTROMECHANICAL ENGINEER [facility] [address] [place] [address] Vignesh Maharaj MD Discharge Disposition: Discharged to home or Selfcare 04/08/2024 Travel 04/08/2024 Telephone [facility] [address] [place] [address] Vignesh Maharaj MD 04/08/2024 Results Follow-Up [facility] [address] [place] [address] Vignesh Maharaj MD 04/07/2024 3:40 PM ELECTROMECHANICAL ENGINEER - 04/07/2024 11:59 PM ELECTROMECHANICAL ENGINEER [facility] [address] [place] [address] Norma March, PERSONAL BANKING ADVISOR, CAR TRACER Discharge Disposition: Discharged to home or Selfcare 04/07/2024 Telephone [facility] [address] [place] [address] Vignesh Maharaj MD 04/07/2024 Telephone [facility] [address] [place] [address] Vignesh Maharaj MD Medication Refill 04/06/2024 6:30 PM ELECTROMECHANICAL ENGINEER Office Visit [facility] [address] [place] [address] Vignesh Maharaj MD Chronic bilateral low back pain with bilateral sciatica (Primary Dx); Mild intermittent asthma without complication; Fatigue, unspecified type; Palpitations Discharge Disposition: Discharged to home or Selfcare 04/06/2024 Travel 04/02/2024 Telephone [facility] [address] [address] Marlen Allen, PT Appointment (Cancelled PT eval) 03/23/2024 1:45 PM ELECTROMECHANICAL ENGINEER Telemedicine [facility] [address] [place] [phone] Norma March, PERSONAL BANKING ADVISOR, CAR TRACER Chronic bilateral low back pain with bilateral sciatica (Primary Dx) from Last 3 Months Immunizations Immunization Administration Dates Next Due DTP Vaccine 11/01/1991, 9,1986,1986,1986 Hepatitis B Vaccine, Pediatric/adolescent 04/12/1997,06/15/1996,02/03/1996 Influenza Vaccine, Quadrivalent, PF 01/01/2021,0 06/15/2020,12/04/2018 Influenza, Seasonal, Injecta ble, Undefined 02/08/2013 MMR Vaccine 11/01/1991,09/26/1987 OPV 11/01/1991, 9,1986,1986,1986 Pneumococcal Vaccine Adult - 23 Valent 06/15/2020 TB Skin Test 10/01/2018 Family History Medical History Relation Name Comments Diabetes Brother Hypertension Brother No Known Problems Father Diabetes Mother Heart Disease Mother Hypertension Mother Kidney Disease Mother Asthma Sister 1 Asthma Sister 2 Kidney Stones Sister 2 Relation Name Status Comments Brother Alive Father Alive Mother Sister 1 Alive Sister 2 Alive Social History Tobacco Use Types Packs/Day Years Used Date Smoking Tobacco: Never Smokeless Tobacco: Never Tobacco Cessation:Counseling Given: No Alcohol Use Standard Drinks/Week Comments Not Currently 0 (1 standard drink = 0.6 oz pur e alcohol) [facility] Utilities Answer Date Recorded In the past 12 months has [employer], gas, oil, or water [employer] threatened to shut off services in your [...] week 04/01/2024 How often do you attend [facility] or congregational services? Patient declined 04/01/2024 Do you belong to any clubs o r organizations such as rastafarian groups, unions, fraternal or athletic groups, or [...] Score - Questions 1-9 0 07/0 05/2023 [facility] - Occupational Stress Questionnaire Answer Date [...] any time in the past 12 m [facility], were you homeless or living in a half-way (including now)? No 04/01/2024 Education Answer Date Recorded What is the highest level of school you have completed or the highest degree you have received? 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 Not on file Not on fi le Last Filed Vital Signs Vital Sign Reading Time Taken Comments Blood Pressure 118/62 04/06/2024 4:56 PM ELECTROMECHANICAL ENGINEER Pulse 98 04/06/2024 4:56 PM ELECTROMECHANICAL ENGINEER Temperature 36.2 C (97.2 F) 04/06/2024 4:56 PM ELECTROMECHANICAL ENGINEER Respiratory Rate 16 04/06/2024 4:56 PM ELECTROMECHANICAL ENGINEER Oxygen Saturation 99% 04/06/2024 4:56 PM ELECTROMECHANICAL ENGINEER Inhaled Oxygen Concentration - - Weight 106.5 kg (234 lb 14.4 oz) 04/06/2024 4:56 PM ELECTROMECHANICAL ENGINEER Height 162.6 cm (5' 4 ) 04/06/2024 4:56 PM ELECTROMECHANICAL ENGINEER Body Mass Index 40.32 04/06/2024 4:56 PM ELECTROMECHANICAL ENGINEER Plan of Treatment Upcoming Encounters Date Type Department Care Team (Late st Contact Info) Description 07/05/2024 4:00 PM CDT [facility] [address] [place] [phone] Vignesh Maharaj MD [address] [address] Health Maintenance Due Date Last Done Comments DTaP/Tdap/Td Immunization (6 - Tdap) 1997 11/01/1991, 04/15/1988, 1986, Additional history exists HPV/Cotest 2016 Cervical Cancer Screening (CCS) 02/27/2021 Pap Smear 02/27/2021 02/27/2018, 10/01/2012 Pneumococcal Immunization Combined (2 of 2 - PCV) 06/15/2021 06/15/2020 SARS-COV-2 Immunization ( - season) 2023 Influenza Immunization (Season Ended) 2024 01/01/2021, 06/15/2020, 12/04/2018, Additional history exists Respiratory Syncytial Virus (RSV) Immunization (Adult) (1 - 1-dose 75+ series) 2061 Hepatitis B Immunization Completed 998, 06/15/1996, 02/03/1996 Hepatitis C Virus (HCV) Screening Completed 10/23/2017, 06/14/2012 Meningococcal Immunization (ACWY) Aged Out No longer eligible based on patient's age to complete this topic Rotavirus Immunization Aged Out No lo nger eligible based on patient's age to complete this topic Procedures Procedure Name Priority Date/Time Associated Diagnosis Comments EVENT RECORDER, 30-DAY Routine 04/08/2024 2:04 PM ELECTROMECHANICAL ENGINEER Palpitations XR LUMBAR SPINE MINIMUM 4 VIEWS Routine 04/07/2024 3:53 PM ELECTROMECHANICAL ENGINEER Chronic bilateral low back pain with bilateral sciatica THYROID STIMULATING HORMONE (TSH) Today 04/07/2024 3:35 PM ELECTROMECHANICAL ENGINEER Fatigue, unspecified type CMP (COMPREHENSIVE METABOLIC PANEL) Today 04/07/2024 3:35 PM ELECTROMECHANICAL ENGINEER Fatigue, unspecified type HEPATITIS C ANTIBODY STAT 10/23/2017 3:15 PM CDT PATHOLOGY CYTOLOGY HEAD FIELD HOCKEY COACH Routine 10/01/2012 from Last 3 Months or Most Recently Relevant to Health Maintenance Results * EVENT RECORDER, 30-DAY (04/08/2024 2:04 PM ELECTROMECHANICAL ENGINEER) Anatomical Region Laterality Modality CARDIO N/A Electrocardiogra phy Narrative 05/11/2024 10:38 AM ELECTROMECHANICAL ENGINEER HOLTER MONITOR REPORT: Patient name: Ella Paz Patient : 1985 Patient Age: 39 y.o. Indication: Palpitation Requesting provider: Dr. Vignesh Maharaj MD Study Duration: Prescribed period 30 days, Interpretable data 17 days 9 hours 22 mins Summary: Minimum HR: 62 BPM Average HR: 89 BPM Maximum HR 161 BPM 1. Atrial ectopy / premature atrial complexes (PAC) - 161 supraventricular ectopic beats occurred (<1 % of complexes) mainly as isolated ectopy. 2. Ventricular ectopy / premature ventricular complexes (PVC) - 139 ventricular ectopic beats occurred (<1 % of complexes) mainly as isolated ectopy. 3. No significant bradycardia or pauses occurred. 4. Atrial fibrillation/flutter was not detected Manually Triggered events: There were 4 manually triggered events. During these triggered episodes, the patient reported Chest pain and sinus rhythm without rhythm or conduction abnormalities were noted. Other tracings mainly demonstrated sinus rhythm. Conclusion: No sustained arrhythmias. Procedure Note Johnson Bob MD - 05/11/2024 HOLTER MONITOR REPORT: Patient name: Ella Paz Patient : 1985 Patient Age: 39 y.o. Indication: Palpitation Requesting provider: Dr. Vignesh Maharaj MD Study Duration: Prescribed period 30 days, Interpretable data 17 days 9 hours 22 mins Summary: Minimum HR: 62 BPM Average HR: 89 BPM Maximum HR 161 BPM 1. Atrial ectopy / premature atrial complexes (PAC) - 161supraventricular ectopic beats occurred (<1 % of complexes) mainly asisolated ectopy. 2. Ventricular ectopy / premature ventricular complexes (PVC) - 139ventricular ectopic beats occurred (<1 % of complexes) mainly as isolatedectopy. 3. No significant bradycardia or pauses occurred. 4. Atrial fibrillation/flutter was not detected Manually Triggered events: There were 4 manually triggered events.During these triggered episodes, the patient reported Chest pain and sinusrhythm without rhythm or conduction abnormalities were noted. Other tracings mainly demonstrated sinus rhythm. Conclusion: No sustained arrhythmias. Vignesh Maharaj MD IMG ECG ORDERABLES Final Resu lt * XR LUMBAR SPINE MINIMUM 4 VIEWS (04/07/2024 3:53 PM ELECTROMECHANICAL ENGINEER) Anatomical Region Laterality Modality Spine, L-spine N/A Digital Radiogra phy 04/08/2024 9:08 AM ELECTROMECHANICAL ENGINEER Impressions 04/08/2024 9:11 AM ELECTROMECHANICAL ENGINEER IMPRESSION: No acute bony abnormality in the lumbar spine. Mild degenerative disc disease L4-5 and moderate degenerative disc disease L5-S1. 4 mm retrolisthesis L5 on S1. Narrative 04/08/2024 9:11 AM ELECTROMECHANICAL ENGINEER EXAM DESCRIPTION: XR LUMBAR SPINE MINIMUM 4 VIEWS REASON FOR STUDY: Low back pain. Patient fell down 12 stairs in May of last year. Pain is worsening with numbing and tingling down bilateral legs. TECHNIQUE: 5 radiographic view(s) of the lumbar spine. COMPARISON: None FINDINGS: ALIGNMENT: 4 mm retrolisthesis L5 on S1. VERTEBRAE: Vertebral bodies of normal height. Small vertebral body osteophytes at L5-S1. DISCS: Mild narrowing of the L4-5 disc and moderate narrowing of the L5-S1 disc. SOFT TISSUES: Within normal limits. THIS IS AN ELECTRONICALLY VERIFIED FINAL REPORT 04/08/2024 9:08 AM - Electronically signed by Isidoro Arroyo M.D. RB: JUAN Report ID: [id number] Reading Location: [id number] Procedure Note Isidoro Arroyo MD - 04/08/2024 EXAM DESCRIPTION: XR LUMBAR SPINE MINIMUM 4 VIEWS REASON FOR STUDY: Low back pain. Patient fell down 12 stairs in May of last year. Pain is worsening with numbing and tingling down bilateral legs. TECHNIQUE: 5 radiographic view(s) of the lumbar spine. COMPARISON: None FINDINGS: ALIGNMENT: 4 mm retrolisthesis L5 on S1. VERTEBRAE: Vertebral bodies of normal height. Small vertebral body osteophytes at L5-S1. DISCS: Mild narrowing of the L4-5 disc and moderate narrowing of the L5-S1 disc. SOFT TISSUES: Within normal limits. THIS IS AN ELECTRONICALLY VERIFIED FINAL REPORT 04/08/2024 9:08 AM - Electronically signed by Isidoro Arroyo M.D. RB: JUAN Report ID: [id number] Reading Location: [id number] IMPRESSION: No acute bony abnormality in the lumbar spine. Mild degenerative disc disease L4-5 and moderate degenerative disc disease L5-S1. 4 mm retrolisthesis L5 on S1. us Norma March PERSONAL BANKING ADVISOR, CAR TRACER IMG DIAGNOSTIC ORDERABLE S Final Result * THYROID STIMULATING HORMONE (TSH) (04/07/2024 3:35 PM ELECTROMECHANICAL ENGINEER) TSH 1.879 0.300 - 5.000 mIU/L 04/07/2024 5:35 PM ELECTROMECHANICAL ENGINEER [facility] Blood Venipuncture / Unknown 04/07/2024 3:35 PM ELECTROMECHANICAL ENGINEER 04/07/2024 4:16 PM ELECTROMECHANICAL ENGINEER us Vignesh Maharaj MD CHEMISTRY ORDERABLES Final Re sult [facility] [address] [place] [address] * (ABNORMAL) CMP (COMPREHENSIVE METABOLIC PANEL) (04/07/2024 3:35 PM ELECTROMECHANICAL ENGINEER) SODIUM 137 136 - 145 mmol/L 04/07/2024 5:18 PM ELECTROMECHANICAL ENGINEER [facility] POTASSIUM 3.5 3.5 - 5.1 mmol/L 04/07/2024 5:18 PM ELECTROMECHANICAL ENGINEER [facility] CHLORIDE 102 98 - 107 mmol/L 04/07/2024 5:18 PM ELECTROMECHANICAL ENGINEER [facility] CO2, VENOUS 27 22 - 30 mmol/L 04/07/2024 5:18 PM ELECTROMECHANICAL ENGINEER [facility] ANION GAP 11.5 <18.0 mmol/L 04/07/2024 5:18 PM ELECTROMECHANICAL ENGINEER [facility] GLUCOSE 106(H) 70 - 99 mg/dL 04/07/2024 5:18 PM [facility] BUN 15 5 - 18 mg/dL 04/07/2024 5:18 PM [facility] CREATININE, BLOOD 0.77 0.60 - 1.00 mg/dL 04/07/2024 5:18 PM [facility] BUN/CREATININE RATIO 19 12 - 20 ratio 04/07/2024 5:18 PM [facility] TOTAL PROTEIN 8.0 6.0 - 8.0 g/dL 04/07/2024 5:18 PM [facility] ALBUMIN 4.2 3.5 - 5.0 g/dL 04/07/2024 5:18 PM [facility] A/G RATIO 1.1 1.0 - 2.2 04/07/2024 5:18 PM [facility] CALCIUM 9.3 8.7 - 10.5 mg/dL 04/07/2024 5:18 PM [facility] T BILI 0.2 0.2 - 1.2 mg/dL 04/07/2024 5:18 PM [facility] SGOT (AST) 16 6 - 42 U/L 04/07/2024 5:18 PM [facility] SGPT (ALT) 16 6 - 55 U/L 04/07/2024 5:18 PM [facility] ALKALINE PHOSPHATASE 68 40 - 150 U/L 04/07/2024 5:18 PM [facility] IS THE PATIENT REQUIRED TO BE FASTING? No 04/07/2024 5:18 PM [facility] GFR, ESTIMATED >60 >=60 04/07/2024 5:18 PM [facility] Comment: Creatinine Clearance is the preferred criteria for selecting drug dose adjustments in renally impaired patients. The GFR is provided as additional pertinent clinical information. GFR is reported in mL/min/1.73 sq m. Calculation based on the Chronic Kidney Disease Epidemiology Collaboration (CKD- EPI) equation refit without adjustment for race. GFR, EST. >60 >=60 01/22/2 025 5:18 PM ELECTROMECHANICAL ENGINEER [facility] GFR, EST. NONAFRICAN >60 >=60 04/07/2024 5:18 PM ELECTROMECHANICAL ENGINEER [facility] Blood Venipuncture / Unknown 04/07/2024 3:35 PM ELECTROMECHANICAL ENGINEER 04/07/2024 4:16 PM ELECTROMECHANICAL ENGINEER Vignesh Maharaj MD CHEMISTRY ORDERABLES Final Re sult Performing Organization Address City/[facility]/ZIP Co de Phone Number [facility] [address] [place] [address] * Hepatitis C (Hcv) Antibody (10/23/2017 3:15 PM CDT) hepatitis C antibody 0.08 <1 S/CO 10/23/2017 10:10 PM CDT [facility] Comment: Signal/Cutoff ratio < 0.79 is Nondetected Signal/Cutoff ratio 0.80-0.99 is Grayzone Signal/Cutoff ratio > 0.99 is Detected Supplemental assays are recommended if signal/cutoff ratio is >/=1.00. Signal/cutoff ratio result >/= 5.00 is 97% predictive of positivity for recombinant immunoblot assay (RIBA) and will be reported to the [place] Department of Public Health as required. Blood specimen (specimen) Venipuncture / Unknown 10/23/2017 3:15 PM CDT 10/23/2017 3:29 PM CDT Moiz Larson MD CHEMISTRY ORDERABLES Final Result Performing Organization Address City/[facility]/ZIP Co de Phone Number [facility] [address] [place] [address], [place] * PATHOLOGY CYTOLOGY HEAD FIELD HOCKEY COACH (10/01/2012) Specimen of unknown material (specimen) Nicanor Syed MD PATHOLOGY/CYTOLOGY ORD ERABLES Final Result from Last 3 Months or Most Recently Relevant to Health Maintenance Insurance [employer] MEDICA[employer] GÓMEZ MEDICAID GÓMEZ Advance Directives * Full Code (Latest Code Status on File) Date Activated Date Inactivated Comments 06/14/2020 12:30 PM 06/16/2020 2:30 PM CPR-Full [place]don[place] atment: FULL ARREST: Attempt Resuscitation/CPR wit intubation and mechanical ventilation. PRE-ARREST: Use entire range of life support measures to stabilize the patient. Care Teams Cdl Team Truck Driver Relationship Specialty Start Date End Date Vignesh Maharaj MD [address] [facility] [address] [place] [address] PCP - General Family Medicine 10/13/19 Nicanor Syde MD [address] [place] [address] Consulting Physician Obstetrics & Gynecology 11/03/17 Misa Garcia MD #[address] [facility] [address] [place] [address] Consulting Physician Endocrinology 07/22/23
--- OUTSIDE RECORDS SUMMARY | 2024-06-21 08:21 | XMS_ITS | Encounter Summary ---
Author Organization [facility] Address [address] [place] [address] Phone Care Team Providers Care Cigarette Stamper Name Role Phone Nicanor Syed MD Unavailable [phone] Vignesh Maharaj MD Primary Care Provider [phone] Misa Garcia MD Unavailable Reason for Visit * Reason Comments Medication Refill Encounter Details Date Type Department Care Team (Late st Contact Info) Description 03/30/2022 Refill [facility] - [facility] [address] [place] [address] Jocelyn Reynolds APRN, BLOOD BANK CREDIT CLERK [address] [address] Medication Refill Social History Tobacco Use Types [...] Sex Assigned at Female 05/21/2023 2:05 PM ADMINISTRATIVE ASSISTANT DATA ENTRY Legal Sex Female 3:16 AM ADMINISTRATIVE ASSISTANT DATA ENTRY Gender Identity Female 05/21/2023 2:05 PM ADMINISTRATIVE ASSISTANT DATA ENTRY Sexual Orientation Not on file 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 Requested Prescriptions Pending Prescriptions Disp Refills meloxicam (MOBIC) 15 MG Tablet [Pharmacy Med Name: MELOXICAM 15 MG TABLET] 90 Tablet 1 Sig: TAKE 1 TABLET BY MOUTH EVERY DAY NSAIDs Protocol Failed - 03/30/2022 9:56 AM Failed - Normal serum creatinine in past 12 months CREATININE, BLOOD Date Value Ref Range Status 01/15/2021 0.65 0.60 - 1.10 mg/dL Final Failed - AST less than 55 or ALT less than 90 in past 12 months SGOT (AST) Date Value Ref Range Status 01/15/2021 21 <=32 U/L Final SGPT (ALT) Date Value Ref Range Status 01/15/2021 21 <=41 U/L Final Failed - HGB greater than 10 or HCT greater than 30 in past 12 months HEMOGLOBIN (HGB) Date Value Ref Range Status 01/15/2021 14.1 12.0 - 15.8 g/dL Final HEMATOCRIT (HCT) Date Value Ref Range Status 01/15/2021 42.6 36.0 - 47.0 % Final Passed - No positive test in the past 12 months or most recent test was negative Passed - Visit with relevant provider in past 12 months or upcoming 90 days Recent Visits Date Type Provider Dept 10/04/21 Telemedicine Jocelyn Reynolds APRN, [facility] 05/23/21 Office Visit Vignesh Maharaj MD [facility] Showing recent visits within past 365 days and meeting all other requirements Future Appointments Date Type Provider Dept 04/17/22 Appointment Vignesh Maharaj MD [facility] Showing future appointments within next 90 days and meeting all other requirements Passed - No active on record Passed - No matching NSAID med order in past 45 days No matching medication orders between 02/15/2022 9:15 AM and 04/01/2022 9:15 AM NISTRATIVE ASSISTANT DATA ENTRY documented in this encounter Plan of Treatment Upcoming Encounters Date Type Department Care Team (Late st Contact Info) Description 07/05/2024 4:00 PM CDT Office Visit [facility] - Family [facility] [address] [place] [address] Vignesh Maharaj MD [address] [facility] [address] [place] [address] documented as of this encounter Visit Diagnoses [...] Time PHQ-9 Depression Total Score: 0 01/02/20 2:00 PM CDT documented as of this encounter Care Teams Cigarette Stamper Relationship Specialty Start Date End Date Vignesh Maharaj MD [address] [facility] [address] [place] [address] PCP - General Family Medicine 10/13/19 Nicanor Syed MD [address] [place] [address] [address] [place] [address] Consulting Physician Obstetrics & Gynecology 11/03/17 Misa Garcia MD [address] [facility] [address] [place] [address] Consulting Physician Endocrinology 07/22/23 documented as of this encounter
[2024-06-21 08:36] VITALS: BP 116/69; PULSE 98; RESP 16; TEMP 36.5; O2SAT 98
[2024-06-21 08:49] LABS: EDSTREPNEGPOS1 Negative (Negative)
--- NOTE | 2024-06-21 09:09 | ED_ITS ---
HPI - URI/Sore Throat General Chief Complaint: Upper Respiratory Infection Stated Complaint: Sore Throat/Body Ache/Fatigue Source: patient and RN notes reviewed Mode of arrival: ambulatory Limitations: no limitations History of Present Illness HPI Narrative: 39-year-old female presents expressed her complaint of upper respiratory symptoms x4 days. She said it started as a sore throat now she believes is progressed into her chest she reports having chest congestion and cough. She reports Her chest feels tight however her tightness is reproducible to palpation to her chest wall. she denies any fevers, chills, body aches, ear pain, congestion. Related Data Home Medications ?Medication ?Instructions ?Recorded ?Confirmed ?Last Taken ?Type hydrocodone 5 mg-acetaminophen 325 tablet 06/10/23 Unknown History mg tablet Allergies Allergy/AdvReac Type Severity Reaction Status Date / Time amoxicillin (From Augmentin) AdvReac Vomiting Verified 06/10/23 12:46 clavulanic acid (From AdvReac Vomiting Verified 06/10/23 12:46 Augmentin) Review of Systems Review of Systems: CONSTITUTIONAL: Denies fever, chills, or sweats. EYES: Denies visual changes, redness, or discharge. ENT: Denies rhinorrhea, congestion, or otalgia. Positive for sore throat CARDIOVASCULAR: Denies chest pain, palpitations, or edema. RESPIRATORY: positive for cough and chest congestion. negative for dyspnea. GASTROINTESTINAL: Denies abdominal pain, nausea, vomiting, or diarrhea. GENITOURINARY: Denies dysuria or hematuria. SKIN: Denies rash or itching. MUSCULOSKELETAL: Denies back pain, joint pain, or myalgia. NEUROLOGIC: Denies headache, numbness, or weakness. PSYCHIATRIC: Denies anxiety or depression. All other systems reviewed are negative, except as documented in HPI. [facility] Past Medical History Medical History COVID-19 Asthma Shoulder pain Cholecystitis Shoulder pain, right Biliary colic Vomiting Surgical History Surgical History History of surgery on lower extremity dog attack Hx of appendectomy H/O neck surgery History of tubal ligation Hx laparoscopic cholecystectomy Family History Family History Mother Family history of diabetes mellitus in first degree relative Father Family history of malignant neoplasm of urinary bladder Family history of heart disease in male family member before age 55 Social History Social History Smoking status: Never smoker Second hand tobacco smoke exposure: No Alcohol intake: never Substance use: current Substance use type: marijuana Last use: 01/31/21 Lack of Transportation: No Lack of Food: Never True Current Housing: I Have Housing Concerned About Future Housing: No Difficulty Paying Gas/Electric Bills: No Difficulty Paying for Meds: No Currently Unemployed: No Education: High School Diploma/GED Difficulty w/ Childcare or Family Care: No Living arrangements: with family Gender identity (if verbalized by the patient): Female Sexual Orientation (if Verbalized by the Patient): Straight or Heterosexual Spiritual care concerns: No Comments At the time of my signature, I reviewed and agree with the nursing past medical, surgical, social, and family history. There is no relevant family history pertinent to the patient complaint. Exam Narrative: GENERAL: This is a well-nourished, well-developed adult, in no apparent distress. They are non ill-appearing, nontoxic appearing. HEAD: normocephalic, atraumatic. EYES: Sclera clear/white. Vision is grossly intact. EARS: External ears normal, auditory canals clear and without drainage, TMs normal without perforation. Hearing grossly intact. NOSE: External nose normal with no obvious nasal discharge, nasal turbinates with mild erythema, no rhinorrhea. THROAT: Mucous membranes moist, posterior pharynx with mild erythema with postnasal drip. Uvula midline NECK: Neck supple, non-tender without lymphadenopathy, masses or thyromegaly. CARDIOVASCULAR: Regular rate and rhythm without murmurs, gallops, or rubs. CHEST WALL: normal chest rise and fall. There is tenderness to palpation to the sternal wall. RESPIRATORY: Clear to auscultation. Breath sounds equal bilaterally. No wheezes, rales, or rhonchi. SKIN: warm, Dry, intact with no suspicious lesions or rash, good texture and turgor. NEURO: awake, alert, and oriented to person, place and time. There were no obvious focal neurologic abnormalities. EXTREMITIES: No joint tenderness, effusion, or edema noted. Course Course Emergency Course: Patient is aware of diagnosis, understands and agrees to treatment plan. Anticipatory guidance given. Patient agrees to follow-up as directed and is aware of reasons to seek care at the emergency department. Portions of this record may have been created with voice recognition software Level of Care: Express Care Visit Vital Signs Vital signs: Vital Signs Temperature 97.7 F 06/21/24 08:36 Pulse Rate 98 06/21/24 08:36 Respiratory Rate 16 06/21/24 08:36 Blood Pressure 116/69 06/21/24 08:36 Pulse Oximetry 98 06/21/24 08:36 Oxygen Delivery Room Air 06/21/24 08:36 Temperature 97.7 F 06/21/24 08:36 Pulse Rate 98 06/21/24 08:36 Respiratory Rate 16 06/21/24 08:36 Blood Pressure 116/69 06/21/24 08:36 Pulse Oximetry 98 06/21/24 08:36 Oxygen Delivery Room Air 06/21/24 08:36 Reviewed MDM - URI/Sore Throat MDM Narrative Medical decision making narrative: patient's symptoms are likely viral. rapid strep was negative, a throat culture will be sent off as he will be notified of the cultures positive for strep. Is likely that she has developed a bronchitis with her illness. will give her a short course of steroids to help with her symptoms. Discussed physical exam findings. Advised supportive measures and signs/symptoms to go to the ER. Pt is appropriate for outpt treatment and f/u. Differential Diagnosis Differential diagnosis: Likely viral infection, bronchitis, pharyngitis and other Lab Data Attestation: I reviewed the patient's lab results. Labs: Lab Results 06/21/24 Range/Units 08:32 POC Grp A Strep Screen Negative (Negative) Critical Care Time Critical Care Time Critical Care Time: No Discharge Plan Discharge Clinical Impression: Bronchitis Patient Disposition: Home Condition: Stable Instructions: Acute Bronchitis (ED) Additional Instructions: Take the steroids as directed. Take them in the morning with food. Viral illness may last between 7-21 days; antibiotics do not cure viral illness and are NOT recommended at this time. Recommend antihistamine such as Benadryl at night time and Zyrtec or Jess during the day Cough syrup may cause drowsiness; avoid driving or take it at night time. Also, recommend symptomatic treatment includes: rest, fluids, and increase humidity of the air at home. Recommend Acetaminophen as directed on the bottle to reduce fever, pain, headache. Please schedule a follow-up visit with your personal physician for further evaluation and treatment within 3-5days. If your symptoms persist, change or worsen significantly before you can contact your personal physician then please, without delay, go to the emergency department for further evaluation. your rapid strep swab was negative today at [facility]. You will be notified in a few days if the culture comes back positive for strep, and appropriate antibiotics will be called in for you at that time. Patient Language: [place] Islander Prescriptions: New prednisone 50 mg tablet 50 mg PO DAILY 5 Days Qty: 5 0RF No Action albuterol sulfate 90 mcg/actuation HFA aerosol inhaler 2 puff inhalation QID PRN (Reason: shortness of breath or wheezing) Qty: 6.7 1RF hydrocodone-acetaminophen 5-325 mg tablet clindamycin HCl 150 mg capsule 150 mg PO TID 10 Days Qty: 30 0RF Follow-up/Referrals: Nicko,Vignesh Garcia MD [Primary Care Provider] - Stand Alone Forms: Work/School Release IP Time of Disposition: 09:05
== END 2024-06-21 09:15 | disposition home or self-care (01) ==
PROVIDERS: Nurse Practitioner; PCP Internal Medicine
DX: J40 Bronchitis, not specified as acute or chronic (principal); J45.909 Unspecified asthma, uncomplicated; Z86.16 Personal history of COVID-19
CPT/HCPCS: 87081; 87880; 99213; G0463

== ENCOUNTER 2024-12-23 17:40 | Emergency (ER) | payer OTHER, SELFPAY ==
--- NOTE | 2024-12-23 17:48 | ED_ITS ---
HPI - Skin/Abscess/Foreign Bdy General Chief complaint: Skin/Abscess/Foreign Body Stated complaint: Back of left leg bug bite Time Seen by Provider: 12/23/24 17:54 Source: patient, RN notes reviewed and old records reviewed Mode of arrival: ambulatory Limitations: no limitations History of Present Illness HPI narrative: 39-year-old female presents to the [facility] with redness and inflammation to the left posterior leg. Patient states on Friday she noticed a bug bite, this morning had a pustule that was green and pop. Now there is redness, warmth and drainage from the center. Onset (ago): day(s) (3) Treatments prior to arrival: none Related Data Home Medications ?Medication ?Instructions ?Recorded ?Confirmed ?Last Taken ?Type hydrocodone 5 mg-acetaminophen 325 tablet 06/10/23 Un known History mg tablet Allergies Allergy/AdvReac Type Severity Reaction Status Date / Time amoxicillin (From Augmentin) AdvReac Vomiting Verified 06/10/23 12:46 clavulanic acid (From AdvReac Vomiting Verified 06/10/23 12:46 Augmentin) Review of Systems 2 Review of Systems: All systems reviewed & are unremarkable except as noted in HPI and below Constitutional: Constitutional: Reports no additional constitutional complaints Cardiovascular: Cardiovascular: Reports no additional cardiovascular complaints, Denies chest pain and Denies dyspnea Respiratory: Respiratory: Reports no additional respiratory complaints, Denies chest congestion, Denies cough and Denies dyspnea Musculoskeletal: Musculoskeletal: Reports no additional musculoskeletal complaints Integumentary/Breasts: Skin/Breast: Reports as per HPI PMFSH Past Medical History Medical History COVID-19 Asthma Shoulder pain Cholecystitis Shoulder pain, right Biliary colic Vomiting Surgical History Surgical History History of surgery on lower extremity dog attack Hx of appendectomy H/O neck surgery History of tubal ligation Hx laparoscopic cholecystectomy Family History Family History Mother Family history of diabetes mellitus in first degree relative Father Family history of malignant neoplasm of urinary bladder Family history of heart disease in male family member before age 55 Social History Social History Smoking status: Never smoker Second hand tobacco smoke exposure: No Alcohol intake: never Substance use: current Substance use type: marijuana Last use: 01/31/21 Lack of Transportation: No Lack of Food: Never True Current Housing: I Have Housing Concerned About Future Housing: No Difficulty Paying Gas/Electric Bills: No Difficulty Paying for Meds: No Currently Unemployed: No Education: High School Diploma/GED Difficulty w/ Childcare or Family Care: No Living arrangements: with family Gender identity (if verbalized by the patient): Female Sexual Orientation (if Verbalized by the Patient): Straight or Heterosexual Spiritual care concerns: No Comments At the time of my signature, I reviewed and agree with the nursing past medical, surgical, social, and family history. There is no relevant family history pertinent to the patient complaint. Exam 2 Const: General: cooperative, healthy appearing, comfortable, no acute distress, well developed, alert and well nourished Nutritional Appearance: w ell nourished Orientation/consciousness: patient oriented x3 Limitations: no limitations HENMT: Head: normal to inspection Eyes: General: appearance normal, both eyes and all related structures A lignment and Position: alignment normal Neck: Neck: normal visual inspection, full ROM, no lymphadenopathy and no meningeal signs Chest: Chest palpation & inspection: normal inspection of the chest Resp: Effort & Inspection: normal respiratory effort and able to speak in complete sentences Auscultation: clear to auscultation bilaterally, no crackles, no rales, no rhonchi and no wheezes Cardio: Rate: regular rate Skin: General skin exam: normal color and no rashes or lesions noted Full body images: 1. 3 x 2 cm indurated area, raised, rounded drainage from the center. Erythema radiating 9 x 20 cm. Neuro: General: patient oriented x3, gait normal, moves all extremities and no meningeal signs Cognition (Neuro): normal cognition Speech: normal speech Gait exam (Neuro): Normal gait present Extrem: General: normal to inspection, full ROM, capillary refill normal and normal gait Psych: Appearance: grossly normal and well kempt Mental Status: mental status grossly normal Speech and movement: Normal speech and movement present and Clear speech present Affect: normal affect Attitude: cooperative Course Course Level of Care: Express Care Visit Vital Signs Vital signs: Vital Signs Temperature 97.8 F 12/23/24 17:52 Pulse Rate 81 12/23/24 17:52 Respiratory Rate 18 12/23/24 17:52 Blood Pressure 138/82 12/23/24 17:52 Pulse Oximetry 100 12/23/24 17:52 Oxygen Delivery Room Air 12/23/24 17:52 Temperature 97.8 F 12/23/24 17:52 Pulse Rate 81 12/23/24 17:52 Respiratory Rate 18 12/23/24 17:52 Blood Pressure 138/82 12/23/24 17:52 Pulse Oximetry 100 12/23/24 17:52 Oxygen Delivery Room Air 12/23/24 17:52 Reviewed MDM - Skin/Abscess/Foreign Bdy MDM Narrative Medical decision making narrative: Patient sitting in exam room. Patient is nontoxic, vitals stable. Patient presents with erythema posterior left leg, drainage, culture collected and sent to lab. Patient is appropriate for outpatient treatment with antibiotics. Bactrim discussed in detail signs and symptoms to proceed to the emergency room which she verbalized understanding Discharge instructions reviewed with patient, as well as provided in writing per nursing staff. The instructions also include specific and strict return/GO TO THE ER as well as f/u information. All questions have been answered, and the patient deny any further questions with discharge and discharge plan. Some parts of this dictation were generated by voice recognition software and may contain typographical and/or grammatical inaccuracies. Differential Diagnosis Differential diagnosis: Likely abscess of skin or subcutaneous tissue, cellulitis, insect bites, impetigo and contact dermatitis Critical Care Time Critical Care Time Critical Care Time: No Discharge Plan Discharge Clinical Impression: Cellulitis, Insect bites Patient Disposition: Home Condition: Stable Instructions: Antibiotic Form, Cellulitis (ED), Insect Bite or Sting (ED) Patient Language: Turkmen Prescriptions: New sulfamethoxazole-trimethoprim [Bactrim DS] 800-160 mg tablet 1 tablet PO Q12H Qty: 14 0RF No Action albuterol sulfate 90 mcg/actuation HFA aerosol inhaler 2 puff inhalation QID PRN (Reason: shortness of breath or wheezing) Qty: 6.7 1RF prednisone 50 mg tablet 50 mg PO DAILY 5 Days Qty: 5 0RF hydrocodone-acetaminophen 5-325 mg tablet clindamycin HCl 150 mg capsule 150 mg PO TID 10 Days Qty: 30 0RF Follow-up/Referrals: Nicko,Vignesh Garcia MD [Primary Care Provider] - 2 Weeks Clinical Impression: Cellulitis; Insect bites Stand Alone Forms: Work/School Release IP Time of Disposition: 18:09
[2024-12-23 17:52] VITALS: BP 138/82; PULSE 81; RESP 18; TEMP 36.6; O2SAT 100
== END 2024-12-23 18:13 | disposition home or self-care (01) ==
PROVIDERS: Emergency Provider Nurse Practitioner; PCP Internal Medicine
DX: L03.116 Cellulitis of left lower limb (principal); S70.362A Insect bite (nonvenomous), left thigh, initial encounter; W57.XXXA Bitten or stung by nonvenomous insect and other nonvenomous arthropods, initial encounter; J45.909 Unspecified asthma, uncomplicated; Z86.16 Personal history of COVID-19
CPT/HCPCS: 87070; 87075; 87147; 87186; 99213; G0463